=== PATIENT | male | born 1940 | race Caucasian/White ===

== ENCOUNTER 2025-06-09 07:12 | Outpatient (CLI) | payer MEDICARE, SELFPAY ==
--- NOTE | ~2025-06-09 | PE_ITS ---
EXAMINATION: PET_PETPSMAST_PT DATE: 06/09/2025 11:17 INDICATION: Prostate cancer TECHNIQUE: 5.354 mCi of Illucix Ga-68([id number]) was administered i.v. Low dose computed karen graphy (CT) images were acquired from the base of the brain to the base of the brain to the proximal thighs for attenuation correction and anatomic localization. Positron emission tomography (PET) image s were acquired in the same distribution beginning 89 minutes after injection. Images including fused PET/CT images were reconstructed in axial, coronal, and sagittal planes. Automated exposure control technique was employed. The dose-length product was 793.38mGy-cm. COMPARISON: None FINDINGS: Head/neck: Typical pattern of symmetric physiologic increased activity in the lacrimal, parotid and submandibula r glands as well as along the mucosa of the nasal and oral cavities, pharynx and hypopharynx. No path ologically enlarged cervical lymphadenopathy or suspicious foci of increased uptake in the visualized head or neck. Chest: Mild to moderate emphysema. There is dependent atelectasis in bilateral upper and lower lobes. No faraz picious pulmonary nodules or pleural effusion. Heart size is normal. Atherosclerotic coronary artery calcific lesion. No pericardial effusion. Thoracic aorta is normal in caliber. No pathologically enla rged or PSMA avid thoracic lymphadenopathy. Abdomen/pelvis/proximal thighs: Physiologic renal accumulation and excretion of activity in the kidneys, bladder and along portions o f ureters. Photopenic defect associated with a couple left renal cysts the largest measuring 7.2 cm. There are 2 nonobstructing right renal stones measuring up to 4-5 mm. Vogel catheter in the bladder. Prostatomegaly measuring 5.7 x 5.7 cm which impresses upon the base of the bladder. There is a small focus of increased uptake in the midline of the posterior prostate with maximal SUV of 4.2. Normal de gree and slightly heterogenous pattern of increased uptake throughout the liver and spleen without ra diologic correlate or dominant PSMA avid lesion. Additional photopenic defect associated with the lar maliha of a couple low-attenuation hepatic cysts which measure up to 1.9 cm. Multiple calcified gallston es in the incompletely distended gallbladder. Multiple splenic calcific location consistent with old granulomatous disease. Pancreas and bilateral adrenal glands are normal. Moderate uptake scattered th roughout the bowels with typical duodenal and proximal jejunal predominance and without radiologic co rrelate, also likely physiologic. No other abnormal foci of increased uptake or pathologically enlarg ed lymphadenopathy in the abdomen, pelvis or proximal thighs. Musculoskeletal: Multi component mild curvature of the thoracic and lumbar spine with severe lumbar and lower cervical spondylosis and mild to moderate thoracic spondylosis. No suspicious lytic, blastic or abnormally PS MA avid bone lesions. IMPRESSION: 1. Small focus of mild uptake at the posterior midline of the enlarged prostate consistent with prima ry prostate cancer. No evident metastatic disease. 2. Cholelithiasis. 3. Nonobstructing right nephrolithiasis. Reviewed, dictated and finalized at location A. IMPRESSION: 1. Small focus of mild uptake at the posterior midline of the enlarged prostate consistent with primary prostate cancer. No evident metastatic disease. 2. Cholelithiasis. 3. Nonobstructing right nephrolithiasis.
--- OUTSIDE RECORDS SUMMARY | 2025-06-09 07:15 | XMS_ITS | Continuity of Care Document ---
Author Organization [facility] Address [address] [place] [address] [place] [address] Phone Care Team Providers Care Car Cooper Name Role Phone Efrain Echevarria MD Unavailable Unavailable Procedures Procedure Date Office/outpatient Visit, [facility] Advance Directives Directive Yes / No Effective Date File Name No Information Encounters Encounter Description Practice Location Reason(s) For Visit Diagnoses Date Provider Providers Copied on Encounter Office/outpat ient Visit, [facility], [address] [place], [place], [id number], [place] tel:[phone] [address] [place] Professional No Information [address] Zuniga. [address], [place], [id number], . tel:[phone] Referring Provider: Efrain Dean [address] [place], [address] . tel:[phone] Family History Family Member Type Diagnosis Age At Onset No Information Payers Payer name Insurance type Covered alliance party ID Authoriza tion(s) [place] [id number] [place] [facility] [id number] Social History Type Description Quantity Date Captured Comments Sex Male Smoking Status No Information Chief Complaint And Reason For Visit No Information Reason For Referral Reason For Referral No Information History Of Present Illness Encounter Date Complaint History Of Prese nt Illness No Information Functional Status Date Functional Assessmen t No Information Instructions Date Instruction Additional Infor mation No Information Assessments Type Assessment Date No Information Patient Care Teams Name Effective Dates (start - stop) Status Members No Information
--- OUTSIDE RECORDS SUMMARY | 2025-06-09 07:16 | XMS_ITS | Clinical Summary ---
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 Name Role Phone Britton Swanson MD Primary Care Provider [phone] Reggie Guzmán DO Unavailable [phone] Vladimir Murrell MD Unavailable [phone] Bee Archuleta RN Unavailable [phone] Allergies Active Allergy Reactions Criticality Noted Date Comments Ltfsdyg-Huc-Ipm Reductase Inhibitors Angioedema High Bruises all over body and becomes lethargic Medications multivitamin-mi nerals-lutein (CENTRUM SILVER) tablet take 1 tablet by oral route every day 0 3 Active aspirin 81 mg enteric coated tablet Take 1 tablet (81 mg total) by mouth daily 30 tablet 3 9 Active niacin 500 mg tablet TAKE 1 TABLET BY MOUTH IN THE EVENING AFTER AN 81 MG ASPIRIN AND A LIGHT SNACK 90 tablet 0 Active lisinopriL (PRINIVIL,ZESTR IL) 20 mg tablet Take 1 tablet (20 mg total) by mouth daily 90 tablet 3 5 Active metFORMIN XR (GLUCOPHAGE XR) 500 mg 24 hr tablet Take 2 tablets (1,000 mg total) by mouth daily with breakfast 180 tablet 3 5 Active ezetimibe (ZETIA) 10 mg tablet Take 1 tablet (10 mg total) by mouth daily 90 tablet 3 5 Active meclizine (ANTIVERT) 25 mg tablet Take 1 tablet (25 mg total) by mouth 3 (three) times a day as needed for dizziness Active ondansetron (ZOFRAN) 4 mg tablet Take 1 tablet (4 mg total) by mouth every 6 (six) hours as needed for nausea or vomiting Active tamsulosin (FLOMAX) 0.4 mg extended release capsule Take 1 capsule (0.4 mg total) by mouth daily 30 capsule 5 06/30/20 25 Active tamsulosin (FLOMAX) 0.4 mg extended release capsule Take 1 capsule (0.4 mg total) by mouth daily 30 capsule 5 05/31/20 25 Discontinu ed(Reorder ) nitrofurantoin monohydrate (MACROBID) 100 mg capsuleIndicati ons:Urinary Tract/Genitouri nary Infection Take 1 capsule (100 mg total) by mouth 2 (two) times a day for 7 days 14 capsule 5 05/11/20 25 Discontinu ed(Therapy completed) linezolid (ZYVOX) 600 mg tabletIndicatio ns:Urinary Tract/Genitouri nary Infection Take 1 tablet (600 mg total) by mouth 2 (two) times a day for 10 days 20 tablet 5 06/05/20 25 Active Problems Problem Noted Date Diagnosed Date Bilateral impacted cerumen 05/31/2025 Assessment & Plan (05/31/2025 10:27 AM CDT): Canals cleared. RTC for any recurrent concerns. Hospital discharge follow-up 05/31/2025 Assessment & Plan (05/31/2025 10:28 AM CDT): IElsy NP have personally reviewed pertinent inpatient and/or ED records, including discharge medications and Clindesk if applicable. This patient's discharge medication list has been reviewed and reconciled with his outpatient medication list and has also been reviewed with patient and/or caregiver. I have noted any changes. Cystitis 05/24/2025 Urinary tract infection asso ciated with indwelling urethral catheter, initial encounter 05/23/2025 Assessment & Plan (05/31/2025 10:28 AM CDT): Complete antibiotic course. Follow-up with urology as scheduled. Red flags reviewed. BEBE (acute kidney injury) 04/21/2025 Assessment & Plan (04/26/2025 10:16 AM CDT): Will repeat labs in 1 week to ensure continuing to improve and stay normal. Will continue to monitor. Orders: Comprehensive metabolic panel; Future Assessment & Plan (04/21/2025 1:35 PM CDT): Urinary Retention (Resolved) Prostate Cancer 84 y/o male w/ hx of prostate cancer who presented w/ suprapubic pain. Bladder scan in ED showed 1L of retained urine. Bladder decompressed after emery catheter was placed, which also resolved his suprapubic pain. He did have an BEBE with Cr increased to 1.53 with his baseline around 1.0. His Cr decreased quickly to 1.12 after the emery was placed. BEBE was post-renal. It is possible that his prostate cancer contributed to the retention. Urology was consulted in the ED. GIGI shows normal renal ultrasound. Left renal cyst containing thin internal septation. - Patient has clinically improved. Plan: - Urology consulted - Anticipating eventual voiding trial Urinary retention 04/21/2025 Assessment & Plan (05/11/2025 8:40 AM CDT): Emery in place, draining pale urine. No hematuria. He denies any lower abdominal pain or flank pain. No fevers, chills. States appetite has been decreased for the past several weeks. Completed Macrobid. No evidence of infection from UA completed in ED on 05/04 Assessment & Plan (04/26/2025 10:16 AM CDT): Emery in place will be removed next week. Will continue to monitor. Orders: Urinalysis reflex to microscopic and culture Urine, clean voided; Future Prostate cancer 04/21/2025 Assessment & Plan (05/31/2025 10:01 AM CDT): Currently monitoring with Urology. Will continue to follow. Assessment & Plan (05/11/2025 8:39 AM CDT): Scheduled follow-up with Urology 05/15. 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 Assessment & Plan (04/26/2025 10:16 AM CDT): Stable ans continues to follow with urology. Will continue to monitor. Possible UTI (urinary tract infection) Assessment & Plan (04/26/2025 10:16 AM CDT): Will complete Ceftin. Will repeat UA in 1 week. Will continue to monitor. Orders: Urinalysis reflex to microscopic and culture Urine, clean voided; Future CBC with auto differential; Future Assessment & Plan (04/21/2025 1:43 PM CDT): Possible Sepsis In the ED, UA was significant for 1+ leukocyte esterase, 11-20 WBC, and 21-50 RBC. Patient denied having dysuria. His urinary retention and suprapubic pain were resolved after a emery was placed. He was afebrile but did have tachycardia up to 112 bpm and leukocytosis of 14.1. However, following the emery placement, his WBC decreased to 8.4 the following day. Lactate was 1.3. Blood cultures and urine culture were collected. He did meet sepsis criteria with source of infection being UTI. UTI could have been precipitated by urinary retention or vice versa. He was started on empiric ceftriaxone. Plan: - Continue ceftriaxone Sepsis 04/21/2025 Fecal retention 04/21/2025 Assessment & Plan (04/26/2025 10:16 AM CDT): Resolved. No recent issue. Assessment & Plan (04/21/2025 1:44 PM CDT): Patient had fecal retention that began at the same time as his urinary retention. His continues to be constipated after placement of a emery catheter and resolution of urinary obstruction. Prostate cancer could also be a contributing factor. He last had a bowel movement about 2 days prior to admission when he typically has daily BMs. Plan: - Starting scheduled miralax - Lactulose 10g x1 Coronary artery disease of n ative heart with stable angina pectoris 02/26/2025 Assessment & Plan (04/21/2025 5:10 PM CDT): Chronic hx. S/p stents in 2019. Managed w/ ASA 81 mg - Continue home med Assessment & Plan (02/26/2025 11:22 AM CDT): Secondary rpevnetion. Antiplatelet agent and will folwlre spsne. Abdominal aortic aneurysm (AAA) without rupture 02/26/2025 Assessment & Plan (05/31/2025 10:29 AM CDT): Has enlarged since last checked in January. He is following with vascular specialist. Assessment & Plan (02/26/2025 11:22 AM CDT): Vasucalr surgery recommendations. Adverse reaction to statin medication 02/15/2025 Assessment & Plan (02/26/2025 11:22 AM CDT): Severe artharlgias and cognitive change with medicaiton. Controlled type 2 diabetes collette love without complication, without long-term current use of insulin 02/15/2025 Assessment & Plan (04/21/2025 5:12 PM CDT): Chronic hx. Last A1c on 08/17/24 was 5.5%. Well controlled on metformin 500 mg BID - Managed with SSI while inpatient Assessment & Plan (02/26/2025 11:22 AM CDT): Good glycemic control and continue son metformin XR and will trupti housereonse. Elevated PSA 09/14/2024 Assessment & Plan (02/26/2025 11:22 AM CDT): Cniotijnue f/u with urology. No hemturia. Continue surveillance. Balance problem 08/17/2024 Assessment & Plan (08/17/2024 9:31 AM CDT): Neurologically intact. Recommend PT eval and treatment. Monitor response. Safety reviewed. They are agreeable and states understanding. Type 2 diabetes mellitus with hyperlipidemia Assessment & Plan (02/26/2025 11:22 AM CDT): Zetia and no side effects to the medication. Assessment & Plan (08/17/2024 9:31 AM CDT): Compliant with ezetimibe. Will check lipid panel today and plan accordingly. He is not fasting. Encounter for Medicare annual wellness exam 07/25 Assessment & Plan (08/17/2024 9:31 AM CDT): Visit preventive in nature. We reviewed medications, chronic conditions, risk factors, lifestyle recommendations. Reviewed immunization recommendations. Follow-up in 6 months for chronic conditions and 1 year for annual wellness. Chronic bronchitis, unspecified chronic bronchit is type 03/27/2024 Bilateral carotid artery disease, unspecified ty pe 03/27/2024 Bilateral carotid artery stenosis 12/02/2019 Assessment & Plan (04/04/2021 9:25 AM CDT): Patient's carotid disease remains mild and asymptomatic. We will not relook at his carotids for another year or 2. Coronary artery disease invo lving wiyot coronary artery of wiyot heart without angina pectoris 11/24/2019 Assessment & Plan (04/04/2021 9:25 AM CDT): Patient remains free of any symptoms to suggest angina or heart failure. He will continue with aggressive secondary risk factor modification. 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 Discussed possible tenderness/redness at injection site. Need for vaccination 10/27/2019 Assessment & Plan (10/27/2019 5:07 PM BOAT RENTAL CLERK): Pneumovax 23 vaccine given today. Discussed possible tenderness/redness at injection site. BMI 23.0-23.9, adult 10/27/2019 Assessment & Plan (05/11/2025 8:41 AM CDT): Weight loss of 6 lbs in the past 2 months. Decreased appetite. Encouraged use of nail supplement/protein drinks. Stressed the need to push fluids. Assessment & Plan (04/26/2025 10:16 AM CDT): Weight appropriate for patient. Assessment & Plan (10/27/2019 5:04 PM BOAT RENTAL CLERK): Discussed healthy diet and importance of regular physical activity. BMI is acceptable for this patient. Nausea 10/27/2019 Assessment & Plan (10/27/2019 5:06 PM BOAT RENTAL CLERK): Poor intake. Discussed zofran and then 20-30 min later small intake. Discussed 5-6 smaller meals/grazing instead of 3 larger meals at least until appetite improved. Discussed bland diet (BRAT). Denies reflux, no epigastric pain. Denies dizzy/lightheaded. No SOB. Denies CP/arm/neck pain. Reviewed red flags. 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 Reviewed red flags; what would warrant call/rtc. Discussed new medications. Discussed fatigue r/t new beta ivon. Reviewed diet/activity. Presence of drug coated sten t in left circumflex coronary artery 10/18/2019 Overview (11/24/2019): 2.75 x 16 mm AKASH to distal Cx S/P PTCA (percutaneous transluminal coronary ang ioplasty) 10/18/2019 Overview (11/24/2019): angioplasty alone of the posterolateral branch ostium using 2.75 mm balloon Mixed hyperlipidemia 04/08/2014 Overview (02/27/2017): HYPERLIPIDEMIA NEC/NOS Assessment & Plan (04/21/2025 5:11 PM CDT): Chronic hx. Managed w/ zetia 10 mg daily - Continue home med Hypertension associated with diabetes 04/08/2014 Overview (02/27/2017): HYPERTENSION NOS Assessment & Plan (05/31/2025 10:27 AM CDT): Normotensive. Continue lisinopril. Assessment & Plan (04/21/2025 5:14 PM CDT): Chronic hx. Managed with lisinopril 20 mg. It was held due to BEBE, which is now resolving following catheterization. -Resume lisinopril as needed Assessment & Plan (02/26/2025 11:21 AM CDT): Continues on lisinopril and will follow response. No chest pains/pressure/apltaitons. Assessment & Plan (08/17/2024 9:30 AM CDT): Normotensive. Continue lisinopril. Will continue to monitor. Type 2 diabetes mellitus 04/08/2014 Overview (02/27/2017): DMII WO CMP NT ST UNCNTR Assessment & Plan (05/31/2025 10:27 AM CDT): Well controlled on metformin and will continue. Assessment & Plan (08/17/2024 9:31 AM CDT): A1c today. Encouraged to monitor blood glucose at home. Discussed risks of hypoglycemia. He and his are agreeable and states understanding. They believe they do have a glucometer home and will let us know if they do not. Red flags reviewed. Encounters Date Type Department Care Team Description 05/31/2025 9:30 AM CDT Office Visit [facility] [address] [phone] Elsy Miranda NP Hypertension associated with diabetes (HCC) (Primary Dx); Type 2 diabetes mellitus without complication, without long-term current use of insulin (HCC); Prostate cancer (HCC); Bilateral impacted cerumen; Hospital discharge follow-up; Urinary tract infection associated with indwelling urethral catheter, initial encounter; Abdominal aortic aneurysm (AAA) without rupture, unspecified part 05/25/2025 Telephone [facility] [address] [phone] Britton Swanson MD Medical Question/Miscellaneou s 05/23/2025 3:52 PM CDT - 05/26/2025 11:25 AM CDT Hospital Encounter [facility] [address] [place] [address] James Cooley MD Huynh, Kiet T., MD Kheirkhahan, Nazanin, MD Urinary tract infection associated with indwelling urethral catheter, initial encounter (Primary Dx); Cystitis; Abdominal aortic aneurysm (AAA) without rupture, unspecified part; Hypertension associated with diabetes (HCC); Balance problem Discharge Disposition: Discharge to home, home health skilled care 05/23/2025 Nurse Triage [facility] [address] [phone] Britton Swanson MD 05/23/2025 Telephone [facility] [address] [phone] Britton Swanson MD 05/11/2025 8:00 AM CDT Office Visit [facility] [address] [phone] Tete Parker NP Prostate cancer (HCC) (Primary Dx); Urinary retention; BMI 23.0-23.9, adult 05/05/2025 [facility] ED Outreach [facility] Organization [address] [place] [id number] Jeannette Dooley MA 05/04/2025 6:25 AM CDT - 05/04/2025 9:26 AM CDT Emergency [facility] Emergency Department [address] [place] [address] Yosvany Garcia MD Urinary retention (Primary Dx) Discharge Disposition: Discharge to home or self care 05/02/2025 Results Follow-Up [facility] [address] [phone] Zoie Jarquin NP CBC with auto differential, Urinalysis reflex to microscopic and culture Urine, clean voided, Comprehensive metabolic panel, Additional followed-up results: 4 05/01/2025 1:30 PM CDT Lab [facility] [address] [place] [phone] Acute cystitis with hematuria; Urinary retention; BEBE (acute kidney injury) 05/01/2025 1:15 PM CDT Lab [facility] [address] [place] [phone] Acute cystitis with hematuria; Type 2 diabetes mellitus without complication, without long-term current use of insulin (HCC); Hypertension associated with diabetes (HCC); Type 2 diabetes mellitus with hyperlipidemia (HCC); Encounter for Medicare annual wellness exam 04/27/2025 [facility] Post Discharge Follow up phone call [facility] [address] [place] [address] Christina Mccray 04/26/2025 10:00 AM CDT Office Visit [facility] [address] [phone] Zoie Jarquin NP Hospital discharge follow-up (Primary Dx); Left wrist pain; Prostate cancer (HCC); Urinary retention; BEBE (acute kidney injury); Constipation, unspecified constipation type; Acute cystitis with hematuria; BMI 23.0-23.9, adult 04/26/2025 Telephone [facility] [address] [phone] Britton Swanson MD Medical Question/Miscellaneou s 04/24/2025 Telephone [facility] [address] [phone] Britton Swanson MD [facility] Questions 04/21/2025 12:09 AM CDT - 04/22/2025 12:38 PM CDT Hospital Encounter [facility] [address] [place] [address] Henry Mason MD Petters, MD Angelica Jeffrey, Reggie Galvan Jr., MD BEBE (acute kidney injury) (Primary Dx); Urinary retention; Sepsis, due to unspecified organism, unspecified whether acute organ dysfunction present (HCC); Acute cystitis with hematuria [N30.01]; Mixed hyperlipidemia [E78.2]; Hypertension associated with diabetes (HCC) [E11.59, I15.2]; Constipation, unspecified constipation type [K59.00]; Controlled type 2 diabetes mellitus without complication, without long-term current use of insulin (HCC) [E11.9] Discharge Disposition: Discharge to home or self care from Last 3 Months Immunizations Immunization Administration Dates Next Due Influenza, Quadrivalent, Hig h Dose, Preservative Free, Intrr 08/17/2023,08/16/2020 Influenza, Split 04/04/2014,04/04/2014 Influenza, Trivalent, High D ose, Split, Preservative Free, Intramuscular 08/17/2024,08/16/2020,10/27/2019 Influenza, Unspecified 02/20/2023(Deferr ed: Patient Refused),02/11/2023(Deferred: Patient Refused),08/23/2022(Deferred: Patient Refused),08/23/2022(Deferred: Patient Refused),08/11/2022(Deferred: Patient Refused),07/24/2022(Deferred: Patient Refused),01/08/2022(Deferred: Patient Refused),07/24/2021(Deferred: Patient Refused),07/24/2021(Deferred: Patient Refused),12/12/2020(Deferred: Patient Refused),11/23/2019(Deferred: Patient Refused),08/03/2018(Deferred: Patient Refused),11/24/2016(Deferred: Patient Refused) Pneumococcal Conjugate Pcv20 08/17/2024 Pneumococcal Conjugate, Unspecified 05/24(Deferred: Patient Refused),11/23/2019(Deferred: Patient Refused) Pneumococcal Polysaccharide PPV23 10/27/2019 Surgical History Surgery Date Site/Laterality Comments ABDOMINAL SURGERY 08/23/2010 appendectomy CARDIAC STENT PLACEMENT 10/18/2019 1 EYE SURGERY Bilateral cataracts CARDIAC CATHETERIZATION ABSCESS DRAINAGE Rectal abscess repaired Medical History Medical History Date Comments Diabetes mellitus (HCC) diabetes mellitus Hypertension hypertension History of heart artery stent Pt had one stent placed on 10/18/19 AK (myocardial infarction) ([facility]) 10/16/2019 Asthma Chest pain Coronary artery disease Heart murmur Hyperlipidemia Shortness of breath Bilateral carotid artery stenosis 12/02/2019 Sick sinus syndrome (HCC) Vertigo Delayed emergence from gener al anesthesia Abdominal aortic aneurysm (A AA) without rupture 02/26/2025 Family History Medical History Relation Name Comments Aneurysm Brother Heart disease Brother Aneurysm Father Diabetes Mother Relation Name Status Comments Brother Father Mother Social History Tobacco Use Types Packs/Day Years Used Date Smoking Tobacco: Former Cigarettes 2 20 1 978 - 1997 Pipe Smokeless Tobacco: Never Tobacco Cessation:Counseling Given: Not Answered Comments:Smoking History Packs/day: 2 Packs Alcohol Use Standard Drinks/Week Comments No 0 (1 standard drink = 0.6 oz pur e alcohol) [facility] Utilities Answer Date Recorded In the past 12 months has [employer] electric, gas, oil, or water [employer] threatened to shut off services in your home? No 05/29/2025 Social Connection and Isolation Panel [NHANES] A nswer Date Recorded In a typical week, how many times do you talk on the phone with family, friends, or neighbors? Once a week 05/29/20 How often do you get togethe r with friends or relatives? Once a week 05/29/2025 How often do you attend chur ch or jainism services? 1 to 4 times per year 05/29/2025 Do you belong to any clubs o r organizations such as restorationist groups, unions, fraternal or athletic groups, or school groups? Yes 05/29/2025 How often do you attend meet ings of the clubs or organizations you belong to? 1 to 4 times per year 05/29/2025 Are you , , di vorced, , never , or living with a partner? 05/29/2025 AUDIT-C Answer Date Recorded Frequency of Alcohol Consumption Not on file 09/27/2024 Q2: How many drinks containi ng alcohol do you have on a typical day when you are drinking? Patient does not drink Frequency of Binge Drinking Not on file 03/2024 Overall Financial Resource Strain (CARDIA) Answe r Date Recorded How hard is it for you to pa y for the very basics like food, housing, medical care, and heating? Not very hard 05/29/2025 PHQ-2 Answer Date Recorded PHQ-2 Total Score (If total score is 3 or more points, staff should administer the PHQ-9) 0 05/31/2025 [facility] of Occupat ional Health - Occupational Stress Questionnaire Answer Date Recorded Feeling of Stress Only a little 10/25/2019 Exercise Vital Sign Answer Date Recorde d Days of Exercise per Week 0 days 2018 Minutes of Exercise per Session 0 min 10/25/2019 Hunger Vital Sign Answer Date Recorded Within the past 12 months, y ou worried that your food would run out before you got the money to buy more. Never true 05/29/20 25 Within the past 12 months, t he food you bought just didn't last and you didn't have money to get more. Never true 05/29/2025 PRAPARE - Transportation Answer Date Re corded In the past 12 months, has l ack of transportation kept you from medical appointments or from getting medications? No 05/2025 In the past 12 months, has l ack of transportation kept you from meetings, work, or from getting things needed for daily living? No 05/29/2025 Housing Stability Vital Sign Answer Pro e Recorded In the last 12 months, was t here a time when you were not able to pay the mortgage or rent on time? No 05/29/2025 In the past 12 months, how m any times have you moved where you were living? 0 05/29/2025 At any time in the past 12 m [facility], were you homeless or living in a snf (including now)? No 05/29/2025 Personal Safety Answer Date Recorded Have you ever been in or are you currently in a harmful physical or emotional relationship or is someone making you feel afraid or unsafe? 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 Gender Identity Not on file Sexual Orientation Not on file Occupation Industry Job Start Date Job End Date retired Not on file Not on file Not on file Obstetrics History Last Filed Vital Signs Vital Sign Reading Time Taken Comments Blood Pressure 110/72 05/31/2025 9:41 AM CDT Pulse 94 05/31/2025 9:41 AM CDT Temperature 36.5 C (97.7 F) 05/31/2025 9:41 AM CDT Respiratory Rate 16 05/31/2025 9:41 AM CDT Oxygen Saturation 95% 05/31/2025 9:41 AM CDT Inhaled Oxygen Concentration - - Weight 74.4 kg (164 lb) 05/31/2025 9:41 AM CDT Height 180.3 cm (5' 10.98) 05/31/2025 9:41 AM C DT Body Mass Index 22.88 05/31/2025 9:41 AM CDT Plan of Treatment Health Maintenance Due Date Last Done Comments DTaP/Tdap/Td Vaccine (1 - Tdap) 1951 Hepatitis B Screening 1958 Zoster Vaccine (1 of 2) 1990 Influenza Vaccine (#1) 2025 , 08/17/2023, 08/16/2020, Additional history exists Albumin Creatinine Ratio, Urine 08/17/2025 08/17/2024, 08/17/2023, 01/13/2022, Additional history exists Foot Exam 08/17/2025 08/17/2024, 07/25, 06/18/2021, Additional history exists Well Visit 65+ 08/17/2025 08/17/2024, 07/25, 08/11/2022, Additional history exists Dilated Eye Exam 09/07/2025 09/07/2024, 07/2024, 11/04/2022, Additional history exists Hemoglobin A1C 10/31/2025 05/01/2025, 07/25, 03/10/2024, Additional history exists Lipid Panel 05/01/2026 05/01/2025, 07/25, 03/10/2024, Additional history exists eGFR 05/26/2026 05/26/2025, 01/2025, 05/24/2025, Additional history exists Depression Screening 05/31/2026 05/31/2025, 05/11/2025, 04/26/2025, Additional history exists Fall Risk Assessment 05/31/2026 05/31/2025, 05/26/2025, 05/11/2025, Additional history exists Pneumococcal vaccine 65+ Completed 08/17/2024, 03/2019 Goals Goal Patient Goal Type Associated Problems Recent Progress Patient-Stated? Author [facility] General Goal - Patient schedules and keeps appointments with all recommended providers [facility] Care Management On track(2024 2:38 PM CDT) Bee Sweet, RN Note: Problem: Potential for medical complications and readmission if follow-up appointments are not scheduled Interventions: - Ensure all follow-up appointments are scheduled, all prescribed medications have been received. - Address any barriers for keeping scheduled appointment. - Coordinate with patient/caregiver(s) to ensure patient is able to keep scheduled appointment. - Emphasize importance of keeping scheduled appointments. - Identify and discuss questions for next provider visit. - Follow up with patient after scheduled appointment(s) to review any new orders or changes made to medication regimen. SURES[facility] General Goal - Patient / caregiver verbalizes lifestyle changes necessary to meet self-care needs and executes self-care activities to utmost capability ACO Care Management On track(2024 2:38 PM CDT) Bee Sweet, RN Note: Problem: At Risk for Self Care Deficit Interventions: - Assess patient's level of dependence on others along with current level of assistance being provided. - Use motivational interviewing to help guide the patient in accepting the needed amount of assisstance, as applicable. - Contact caregiver and assess their involvement with patient and level of assistance provided, as appropriate. - Assess appropriateness for Home Health. Start referral process if skilled need is present. - Encourage independent ADL's as appropriate. Ensure patient has the appropriate tools at home to be as independent as possible. - Provide fall prevention education to patient and caregiver. - Evaluate need for assistive devices. - Refer to SW if appropriate and patient is agreeable. Medical Devices Implanted Type Area Customer Advisor Device Identifier Shelf Expiration Date Model / Serial / Lot Brandcast [id number] Synergy 2.75mm 16mm 144cm Radiopaque 1 Access Port Inflation - [id number] Implanted:Qty: 1 on 10/18/2019 by Thiago Gutierrez MD at [facility] Jumia Miah 07/10/2021 [id number] / / [id number] [employer]ig [employer] [id number] Angio-Seal Evolution 6fr .035in Guidewire Bypass Tube Suture - [id number] Implanted:Qty: 1 on 10/18/2019 by Thiago Gutierrez MD at [facility] Daig [employer] 06/22/2020 [id number] / / [id number] Procedures Procedure Name Priority Date/Time Associated Diagnosis Comments [place] REMOVAL IMPACTED CERUMEN INSTRUMENTATION UNILAT Routine 05/31/2025 9:30 AM CDT Bilateral impacted cerumen EGFR Routine 05/26/2025 7:06 AM CDT DIFFERENTIAL AUTO Routine 05/26/2025 7:0 6 AM CDT CBC WITH AUTO DIFFERENTIAL Routine 05/26/2025 7:06 AM CDT COMPREHENSIVE METABOLIC PANEL Routine 05/26/2025 7:06 AM CDT EGFR Routine 05/25/2025 3:42 AM CDT DIFFERENTIAL AUTO Routine 05/25/2025 3:4 2 AM CDT CBC WITH AUTO DIFFERENTIAL Routine 05/25/2025 3:42 AM CDT COMPREHENSIVE METABOLIC PANEL Routine 05/25/2025 3:42 AM CDT INFECTION PREVENTION AMBIKA AURIS PCR, SURVEILLANCE Routine 05/24/2025 12:10 PM CDT EGFR Routine 05/24/2025 4:20 AM CDT DIFFERENTIAL AUTO Routine 05/24/2025 4:2 0 AM CDT CBC WITH AUTO DIFFERENTIAL Routine 05/24/2025 4:20 AM CDT COMPREHENSIVE METABOLIC PANEL Routine 05/24/2025 4:20 AM CDT SEPSIS LACTATE WITH REFLEX STAT 05/23/2025 6:59 PM CDT BLOOD CULTURE Routine 05/23/2025 6:59 PM CDT BLOOD CULTURE Routine 05/23/2025 6:59 PM CDT URINALYSIS, MICROSCOPIC ONLY STAT 05/23/2025 5:11 PM CDT URINE CULTURE STAT 05/23/2025 5:11 PM CDT URINALYSIS AND REFLEX TO MICROSCOPIC AND CULTURE STAT 05/23/2025 5:[address] ABDOMEN PELVIS W CONTRAST ED 05/23/2025 5:06 PM CDT EGFR STAT 05/23/2025 1:21 PM CDT DIFFERENTIAL AUTO STAT 05/23/2025 1:2 1 PM CDT LIPASE STAT 05/23/2025 1:21 PM CDT COMPREHENSIVE METABOLIC PANEL STAT 05/23/2025 1:21 PM CDT CBC WITH AUTO DIFFERENTIAL STAT 05/23/2025 1:21 PM CDT URINALYSIS, MICROSCOPIC ONLY STAT 05/04/2025 7:35 AM CDT URINALYSIS AND REFLEX TO MICROSCOPIC AND CULTURE STAT 05/04/2025 7:35 AM CDT EGFR STAT 05/04/2025 5:10 AM CDT DIFFERENTIAL AUTO STAT 05/04/2025 5:1 0 AM CDT LIPASE STAT 05/04/2025 5:10 AM CDT COMPREHENSIVE METABOLIC PANEL STAT 05/04/2025 5:10 AM CDT CBC WITH AUTO DIFFERENTIAL STAT 05/04/2025 5:10 AM CDT EGFR Routine 05/01/2025 1:18 PM CDT BEBE (acute kidney injury) URINALYSIS, MICROSCOPIC ONLY Routine 05/01/2025 1:18 PM CDT Urinary retention Acute cystitis with hematuria DIFFERENTIAL AUTO Routine 05/01/2025 1:1 8 PM CDT Acute cystitis with hematuria COMPREHENSIVE METABOLIC PANEL Routine 05/01/2025 1:18 PM CDT BEBE (acute kidney injury) CBC WITH AUTO DIFFERENTIAL Routine 05/01/2025 1:18 PM CDT Acute cystitis with hematuria URINE CULTURE Routine 05/01/2025 1:18 PM CDT URINALYSIS AND REFLEX TO MICROSCOPIC AND CULTURE Routine 05/01/2025 1:18 PM CDT Urinary retention Acute cystitis with hematuria HEMOGLOBIN A1C Routine 05/01/2025 1:16 PM CDT Type 2 diabetes mellitus without complication, without long-term current use of insulin (HCC) Hypertension associated with diabetes (HCC) Type 2 diabetes mellitus with hyperlipidemia (HCC) Encounter for Medicare annual wellness exam LIPID PANEL Routine 05/01/2025 1:16 PM CDT Type 2 diabetes mellitus without complication, without long-term current use of insulin (HCC) Hypertension associated with diabetes (HCC) Type 2 diabetes mellitus with hyperlipidemia (HCC) Encounter for Medicare annual wellness exam POCT GLUCOSE DEVICE Routine 04/22/2025 1 2:00 PM CDT POCT GLUCOSE DEVICE Routine 04/22/2025 7 :47 AM CDT EGFR Routine 04/22/2025 2:12 AM CDT DIFFERENTIAL AUTO Routine 04/22/2025 2:1 2 AM CDT CBC WITH AUTO DIFFERENTIAL Routine 04/22/2025 2:12 AM CDT MAGNESIUM Routine 04/22/2025 2:12 AM CDT COMPREHENSIVE METABOLIC PANEL Routine 04/22/2025 2:12 AM CDT POCT GLUCOSE DEVICE Routine 04/22/2025 1 :39 AM CDT POCT GLUCOSE DEVICE Routine 04/21/2025 8 :26 PM CDT POCT GLUCOSE DEVICE Routine 04/21/2025 4 :59 PM CDT POCT GLUCOSE DEVICE Routine 04/21/2025 1 2:00 PM CDT US KIDNEY COMPLETE ED 04/21/2025 10 :11 AM CDT POCT GLUCOSE DEVICE Routine 04/21/2025 7 :56 AM CDT EGFR Routine 04/21/2025 5:42 AM CDT DIFFERENTIAL AUTO Routine 04/21/2025 5:4 2 AM CDT CBC WITH AUTO DIFFERENTIAL Routine 04/21/2025 5:42 AM CDT MAGNESIUM Routine 04/21/2025 5:42 AM CDT COMPREHENSIVE METABOLIC PANEL Routine 04/21/2025 5:42 AM CDT SEPSIS LACTATE WITH REFLEX STAT 04/21/2025 1:48 AM CDT BLOOD CULTURE Routine 04/21/2025 1:48 AM CDT BLOOD CULTURE Routine 04/21/2025 1:48 AM CDT URINALYSIS, MICROSCOPIC ONLY STAT 04/21/2025 12:00 AM CDT URINE CULTURE STAT 04/21/2025 12:00 AM CDT URINALYSIS AND REFLEX TO MICROSCOPIC AND CULTURE STAT 04/21/2025 12:00 AM CDT EGFR STAT 04/20/2025 11:41 PM CDT DIFFERENTIAL AUTO STAT 04/20/2025 11: 41 PM CDT LIPASE STAT 04/20/2025 11:41 PM CDT COMPREHENSIVE METABOLIC PANEL STAT 04/20/2025 11:41 PM CDT CBC WITH AUTO DIFFERENTIAL STAT 04/20/2025 11:41 PM CDT DIABETIC EYE EXAM Routine 09/07/2024 7:3 8 AM CDT ALBUMIN CREATININE RATIO, URINE Routine 08/17/2024 10:01 AM CDT Type 2 diabetes mellitus without complication, without long-term current use of insulin (HCC) Hypertension associated with diabetes (HCC) from Last 3 Months or Most Recently Relevant to Health Maintenance Results * [place] REMOVAL IMPACTED CERUMEN INSTRUMENTATION UNILAT (05/31/2025 9:30 AM CDT) Narrative Elsy Miranda, RAND - 05/31/2025 9:30 AM CDT Elsy Miranda NP 05/31/2025 10:29 AM Ear Cerumen Removal Performed by: Elsy Miranda NP Authorized by: Elsy Miranda NP Consent Given by: Patient Verbal consent obtained: Yes Risks, alternatives, and patient questions discussed: Yes Location: Bilateral L ear cerumen impacted?: Yes L ear method of removal: Instrumentation and irrigation L ear instrumentation: Curette L ear magnification: Otoscope R ear cerumen impacted?: Yes R ear method of removal: Instrumentation and irrigation R ear instrumentation: Curette R ear magnification: Otoscope Inspection: TM intact Patient tolerance: Patient tolerated the procedure well with no immediate complications us Elsy Miranda ELECTRICAL MAINTENANCE MAN IN CLINIC/BEDSIDE ORDERABL ES Final Result * eGFR (05/26/2025 7:06 AM CDT) eGFR 77 >=60 mL/min/1. 73 m2 Comment: Interpretive Data Reference Interval Normal >/= 90 mL/min/1.73m2 Mildly decreased* 60 - 89 mL/min/1.73m2 Mildly to moderately decreased 45 - 59 mL/min/1.73m2 Moderately to severely decreased 30 - 44 mL/min/1.73m2 Severely decreased 15 - 29 mL/min/1.73m2 Kidney Failure < 15 mL/min/1.73m2 *Relative to young adult level Estimated glomerular filtration rate is determined by the 2020 CKD-EPI equation recommended by the National Kidney Foundation (A Unifying Approach to GFR Estimation: Recommendations of the NKF-ASK Task Force on Reassessing the Inclusion of Race in Diagnosing Kidney Disease, JASN 202). The CKD-EPI equation should not be used for patients with unstable renal function and has not been validated in children and those over 70. Current interpretive data was last reviewed 2021. Blood 05/26/2025 7:06 AM CDT 05/26/2025 7:42 AM CDT us Chilango Costello MD LAB BLOOD ORDERABLES Final Resu lt [facility] [place] [facility] Department [place] [address] * Differential, auto (05/26/2025 7:06 AM CDT) Neutrophil abs 4.85 1.50 - 6.50 K/cumm Imm gran abs 0.03 0.00 - 0.10 K/cumm [facility] ([facility]) Lymphocyte abs 1.36 0.80 - 3.30 K/cumm [facility] ([facility]) Monocyte abs 0.78 0.20 - 0.80 K/cumm [facility] ([place]) Eosinophil abs 0.47 0.00 - 0.50 K/cumm [facility] ([place]) Basophil abs 0.07 0.00 - 0.10 K/cumm [facility] ([place]) Neutrophil pct 64.2 % [facility] ([place]) Comment: Interpretive Data Percent cell count reference ranges are not reported, since discordance with absolute values may lead to misinterpretation of CBC data. Current Interpretive Data was last revised on 2018. Imm gran pct 0.4 % [facility] ([place]) Comment: Interpretive Data Percent cell count reference ranges are not reported, since discordance with absolute values may lead to misinterpretation of CBC data. Current Interpretive Data was last revised on 2018. Lymphocyte pct 18.0 % [facility] ([place]) Comment: Interpretive Data Percent cell count reference ranges are not reported, since discordance with absolute values may lead to misinterpretation of CBC data. Current Interpretive Data was last revised on 2018. Monocyte pct 10.3 % [facility] ([facility]) Comment: Interpretive Data Percent cell count reference ranges are not reported, since discordance with absolute values may lead to misinterpretation of CBC data. Current Interpretive Data was last revised on 2018. Eosinophil pct 6.2 % [facility] ([facility]) Comment: Interpretive Data Percent cell count reference ranges are not reported, since discordance with absolute values may lead to misinterpretation of CBC data. Current Interpretive Data was last revised on 2018. Basophil pct 0.9 % [facility] ([place]) Comment: Interpretive Data Percent cell count reference ranges are not reported, since discordance with absolute values may lead to misinterpretation of CBC data. Current Interpretive Data was last revised on 2018. Blood 05/26/2025 7:06 AM CDT 05/26/2025 7:42 AM CDT Chilango Costello MD LAB BLOOD ORDERABLES Final Resu lt [facility] ([place]) 1 [facility] [place] [address] * (ABNORMAL) CBC with auto differential (05/26/2025 7:06 AM CDT) WBC 7.56 3.80 - 9.90 K/cumm Hgb 11.6(L) 13.0 - 17.5 g/dL [facility] ([place]) Hct 34.1(L) 38.9 - 50.3 % [facility] ([place]) Plt 277 150 - 400 K/cumm [facility] ([place]) MPV 8.7(L) 9.1 - 12.3 fL [facility] ([place]) RBC 3.64(L) 4.30 - 5.80 M/cumm [facility] ([place]) MCV 93.7 81.3 - 96.4 fL [facility] ([place]) MCH 31.9 27.1 - 33.3 pg [facility] ([place]) MCHC 34.0 32.3 - 35.7 g/dL [facility] ([place]) RDW CV 12.1 11.1 - 14.9 % [facility] ([place]) RDW SD 42.0 35.7 - 48.1 fL [facility] ([place]) NRBC abs 0.00 0.00 - 0.01 K/cumm [facility] ([facility]) Blood 05/26/2025 7:06 AM CDT 05/26/2025 7:42 AM CDT Chilango Costello MD LAB BLOOD ORDERABLES Final Resu lt [facility] ([place]) 1 [facility] [place] [address] * (ABNORMAL) Comprehensive metabolic panel (05/26/2025 7:06 AM CDT) Sodium 139 135 - 145 mmol/L Potassium, pl 3.8 3.3 - 4.9 mmol/L [facility] ([facility]) Chloride 106 97 - 110 mmol/L [facility] ([place]) CO2 22 22 - 32 mmol/L [facility] ([facility]) Anion gap 11 2 - 15 mmol/L [facility] ([place]) BUN 8 6 - 25 mg/dL [facility] ([place]) Creatinine 0.97 0.80 - 1.30 mg/dL [facility] ([facility]) Glucose 86 70 - 199 mg/dL [facility] ([facility]) Comment: Interpretive Data Fasting glucose >/= 126 mg/dl is diagnostic for diabetes. Fasting is defined as no caloric intake for at least 8 hours. Fasting glucose between 100 mg/dl to 125 mg/dl is diagnostic of prediabetes. In a patient with classic symptoms of hyperglycemia or hyperglycemic crisis, a random glucose >/= 200 mg/dl is diagnostic for diabetes. In the absence of unequivocal hyperglycemia, results should be confirmed by repeat testing. The classification and Diagnosis of Diabetes Diabetes Care 202; 46: S19-S40. Current interpretive data was last revised 2022. Calcium 8.3(L) 8.5 - 10.3 mg/dL [facility] ([facility]) Bilirubin, total 0.3 0.1 - 1.2 mg/dL [facility] ([place]) Protein, pl 6.0(L) 6.5 - 8.5 g/dL [facility] ([place]) Albumin 3.2(L) 3.5 - 5.0 g/dL [facility] ([place]) Alk phos 88 40 - 130 Units/L [facility] ([place]) ALT 46 7 - 55 Units/L [facility] ([facility]) AST 34 10 - 50 Units/L [facility] ([facility]) Blood 05/26/2025 7:06 AM CDT 05/26/2025 7:42 AM CDT us Chilango Costello MD LAB BLOOD ORDERABLES Final Resu lt [facility] ([place]) 1 [facility] Department [place] [address] * eGFR (05/25/2025 3:42 AM CDT) eGFR 67 >=60 mL/min/1. 73 m2 Comment: Interpretive Data Reference Interval Normal >/= 90 mL/min/1.73m2 Mildly decreased* 60 - 89 mL/min/1.73m2 Mildly to moderately decreased 45 - 59 mL/min/1.73m2 Moderately to severely decreased 30 - 44 mL/min/1.73m2 Severely decreased 15 - 29 mL/min/1.73m2 Kidney Failure < 15 mL/min/1.73m2 *Relative to young adult level Estimated glomerular filtration rate is determined by the 2020 CKD-EPI equation recommended by the National Kidney Foundation (A Unifying Approach to GFR Estimation: Recommendations of the NKF-ASK Task Force on Reassessing the Inclusion of Race in Diagnosing Kidney Disease, JASN 2020). The CKD-EPI equation should not be used for patients with unstable renal function and has not been validated in children and those over 70. Current interpretive data was last reviewed 2021. Blood 05/25/2025 3:42 AM CDT 05/25/2025 4:13 AM CDT us Chilango Costello MD LAB BLOOD ORDERABLES Final Resu lt [facility] ([place]) 1 [facility] Department [place] [address] * (ABNORMAL) Differential, auto (05/25/2025 3:42 AM CDT) Neutrophil abs 7.36(H) 1.50 - 6.50 K/cumm Imm gran abs 0.05 0.00 - 0.10 K/cumm [facility] ([place]) Lymphocyte abs 1.24 0.80 - 3.30 K/cumm [facility] ([place]) Monocyte abs 0.95(H) 0.20 - 0.80 K/cumm [facility] ([place]) Eosinophil abs 0.32 0.00 - 0.50 K/cumm [facility] ([place]) Basophil abs 0.05 0.00 - 0.10 K/cumm [facility] ([place]) Neutrophil pct 73.9 % [facility] ([facility]) Comment: Interpretive Data Percent cell count reference ranges are not reported, since discordance with absolute values may lead to misinterpretation of CBC data. Current Interpretive Data was last revised on 2018. Imm gran pct 0.5 % [facility] ([facility]) Comment: Interpretive Data Percent cell count reference ranges are not reported, since discordance with absolute values may lead to misinterpretation of CBC data. Current Interpretive Data was last revised on 2018. Lymphocyte pct 12.4 % [facility] ([facility]) Comment: Interpretive Data Percent cell count reference ranges are not reported, since discordance with absolute values may lead to misinterpretation of CBC data. Current Interpretive Data was last revised on 2018. Monocyte pct 9.5 % [facility] ([facility]) Comment: Interpretive Data Percent cell count reference ranges are not reported, since discordance with absolute values may lead to misinterpretation of CBC data. Current Interpretive Data was last revised on 2018. Eosinophil pct 3.2 % [facility] ([facility]) Comment: Interpretive Data Percent cell count reference ranges are not reported, since discordance with absolute values may lead to misinterpretation of CBC data. Current Interpretive Data was last revised on 2018. Basophil pct 0.5 % [facility] ([place]) Comment: Interpretive Data Percent cell count reference ranges are not reported, since discordance with absolute values may lead to misinterpretation of CBC data. Current Interpretive Data was last revised on 2018. Blood 05/25/2025 3:42 AM CDT 05/25/2025 4:13 AM CDT us Chilango Costello MD LAB BLOOD ORDERABLES Final Resu lt [facility] ([place]) 1 [facility] Department [place] [address] * (ABNORMAL) CBC with auto differential (05/25/2025 3:42 AM CDT) WBC 9.97(H) 3.80 - 9.90 K/cumm Hgb 11.5(L) 13.0 - 17.5 g/dL [facility] ([place]) Hct 33.5(L) 38.9 - 50.3 % [facility] ([place]) Plt 254 150 - 400 K/cumm [facility] ([place]) MPV 8.8(L) 9.1 - 12.3 fL [facility] ([facility]) RBC 3.55(L) 4.30 - 5.80 M/cumm [facility] ([place]) MCV 94.4 81.3 - 96.4 fL [facility] ([place]) MCH 32.4 27.1 - 33.3 pg [facility] ([place]) MCHC 34.3 32.3 - 35.7 g/dL [facility] ([place]) RDW CV 12.2 11.1 - 14.9 % [facility]) RDW SD 43.0 35.7 - 48.1 fL [facility] ([place]) NRBC abs 0.00 0.00 - 0.01 K/cumm [facility] ([facility]) Blood 05/25/2025 3:42 AM CDT 05/25/2025 4:13 AM CDT us Chilango Costello MD LAB BLOOD ORDERABLES Final Resu lt [facility] Department [place] [address] * (ABNORMAL) Comprehensive metabolic panel (05/25/2025 3:42 AM CDT) Sodium 140 135 - 145 mmol/L Potassium, pl 4.4 3.3 - 4.9 mmol/L [facility] ([place]) Chloride 105 97 - 110 mmol/L [facility] ([place]) CO2 22 22 - 32 mmol/L [facility] ([place]) Anion gap 12 2 - 15 mmol/L [facility] ([place]) BUN 14 6 - 25 mg/dL [facility] ([place]) Creatinine 1.09 0.80 - 1.30 mg/dL [facility] ([place]) Glucose 107 70 - 199 mg/dL [facility] ([facility]) Comment: Interpretive Data Fasting glucose >/= 126 mg/dl is diagnostic for diabetes. Fasting is defined as no caloric intake for at least 8 hours. Fasting glucose between 100 mg/dl to 125 mg/dl is diagnostic of prediabetes. In a patient with classic symptoms of hyperglycemia or hyperglycemic crisis, a random glucose >/= 200 mg/dl is diagnostic for diabetes. In the absence of unequivocal hyperglycemia, results should be confirmed by repeat testing. The classification and Diagnosis of Diabetes Diabetes Care 2021; 46: S19-S40. Current interpretive data was last revised 2022. Calcium 8.3(L) 8.5 - 10.3 mg/dL [facility] ([facility]) Bilirubin, total 0.5 0.1 - 1.2 mg/dL [facility] ([place]) Protein, pl 6.1(L) 6.5 - 8.5 g/dL [facility] ([place]) Albumin 3.2(L) 3.5 - 5.0 g/dL [facility] ([place]) Alk phos 84 40 - 130 Units/L [facility] ([place]) ALT 27 7 - 55 Units/L [facility] ([place]) AST 22 10 - 50 Units/L [facility] ([facility]) Blood 05/25/2025 3:42 AM CDT 05/25/2025 4:13 AM CDT Chilango Costello MD LAB BLOOD ORDERABLES Final Resu lt [facility] ([place]) 1 [facility] Department [place] [address] * Infection Prevention Ambika auris PCR, surveillance Axilla/Groin (05/24/2025 12:10 PM CDT) Ambika auris DNA Not Detected Not Detected [facility] Comment: Interpretive Data Testing performed by [facility] using the Joanna debra [id number] Ambika auris assay. This assay detects DNA from Ambika auris using Real-Time PCR. This assay is laboratory developed and is not cleared by the [place] Food and Drug Administration. The performance characteristics have been verified by the [facility]. Testing performed by: [facility], [address] [place] [address] Axilla/Groin 05/24/2025 12:1 0 PM CDT 05/24/2025 3:34 PM CDT us Cuauhtemoc Freed MD LAB MICROBIOLOGY - G ENERAL ORDERABLES Final Result [facility] ([place]) 1 [facility] Department [place] [address] [facility] * eGFR (05/24/2025 4:20 AM CDT) eGFR 79 >=60 mL/min/1. 73 m2 Comment: Interpretive Data Reference Interval Normal >/= 90 mL/min/1.73m2 Mildly decreased* 60 - 89 mL/min/1.73m2 Mildly to moderately decreased 45 - 59 mL/min/1.73m2 Moderately to severely decreased 30 - 44 mL/min/1.73m2 Severely decreased 15 - 29 mL/min/1.73m2 Kidney Failure < 15 mL/min/1.73m2 *Relative to young adult level Estimated glomerular filtration rate is determined by the 2020 CKD-EPI equation recommended by the National Kidney Foundation (A Unifying Approach to GFR Estimation: Recommendations of the NKF-ASK Task Force on Reassessing the Inclusion of Race in Diagnosing Kidney Disease, JASN 2020). The CKD-EPI equation should not be used for patients with unstable renal function and has not been validated in children and those over 70. Current interpretive data was last reviewed 2021. Blood 05/24/2025 4:20 AM CDT 05/24/2025 4:50 AM CDT us Chilango Costello MD LAB BLOOD ORDERABLES Final Resu lt [facility] ([place] Department [place] [address] * (ABNORMAL) Differential, auto (05/24/2025 4:20 AM CDT) Neutrophil abs 10.06(H) 1.50 - 6.50 K/cumm Imm gran abs 0.07 0.00 - 0.10 K/cumm [facility] ([place]) Lymphocyte abs 0.99 0.80 - 3.30 K/cumm [facility] ([place]) Monocyte abs 1.20(H) 0.20 - 0.80 K/cumm [facility] ([place]) Eosinophil abs 0.11 0.00 - 0.50 K/cumm [facility] ([place]) Basophil abs 0.05 0.00 - 0.10 K/cumm [facility] ([place]) Neutrophil pct 80.6 % [facility] ([place]) Comment: Interpretive Data Percent cell count reference ranges are not reported, since discordance with absolute values may lead to misinterpretation of CBC data. Current Interpretive Data was last revised on 2018. Imm gran pct 0.6 % [facility] ([place]) Comment: Interpretive Data Percent cell count reference ranges are not reported, since discordance with absolute values may lead to misinterpretation of CBC data. Current Interpretive Data was last revised on 2018. Lymphocyte pct 7.9 % [facility] ([place]) Comment: Interpretive Data Percent cell count reference ranges are not reported, since discordance with absolute values may lead to misinterpretation of CBC data. Current Interpretive Data was last revised on 2018. Monocyte pct 9.6 % [facility] ([place]) Comment: Interpretive Data Percent cell count reference ranges are not reported, since discordance with absolute values may lead to misinterpretation of CBC data. Current Interpretive Data was last revised on 2018. Eosinophil pct 0.9 % [facility] ([place]) Comment: Interpretive Data Percent cell count reference ranges are not reported, since discordance with absolute values may lead to misinterpretation of CBC data. Current Interpretive Data was last revised on 2018. Basophil pct 0.4 % [facility] ([place]) Comment: Interpretive Data Percent cell count reference ranges are not reported, since discordance with absolute values may lead to misinterpretation of CBC data. Current Interpretive Data was last revised on 2018. Blood 05/24/2025 4:20 AM CDT 05/24/2025 4:50 AM CDT Chilango Costello MD LAB BLOOD ORDERABLES Final Resu lt Performing Organization Address City/State/[facility] Co de Phone Number [facility] ([place]) 1 [facility] Department [place] [address] * (ABNORMAL) CBC with auto differential (05/24/2025 4:20 AM CDT) WBC 12.48(H) 3.80 - 9.90 K/cumm Hgb 11.8(L) 13.0 - 17.5 g/dL [facility] ([place]) Hct 33.7(L) 38.9 - 50.3 % [facility] ([place]) Plt 236 150 - 400 K/cumm [facility] ([place]) MPV 8.8(L) 9.1 - 12.3 fL [facility] ([place]) RBC 3.64(L) 4.30 - 5.80 M/cumm [facility] ([place]) MCV 92.6 81.3 - 96.4 fL [facility] ([place]) MCH 32.4 27.1 - 33.3 pg [facility] ([place]) MCHC 35.0 32.3 - 35.7 g/dL [facility] ([place]) RDW CV 12.0 11.1 - 14.9 % [facility] ([place]) RDW SD 41.0 35.7 - 48.1 fL [facility] ([place]) NRBC abs 0.00 0.00 - 0.01 K/cumm [facility] ([place]) Blood 05/24/2025 4:20 AM CDT 05/24/2025 4:50 AM CDT Chilango Costello MD LAB BLOOD ORDERABLES Final Resu lt [facility] ([place]) 1 [facility] Department [place] [address] * (ABNORMAL) Comprehensive metabolic panel (05/24/2025 4:20 AM CDT) Sodium 138 135 - 145 mmol/L Potassium, pl 3.9 3.3 - 4.9 mmol/L [facility] ([place]) Chloride 103 97 - 110 mmol/L [facility] ([place]) CO2 19(L) 22 - 32 mmol/L [facility] ([place]) Anion gap 16(H) 2 - 15 mmol/L [facility] ([place]) BUN 15 6 - 25 mg/dL [facility] ([facility]) Creatinine 0.95 0.80 - 1.30 mg/dL [facility] ([facility]) Glucose 120 70 - 199 mg/dL [facility] ([facility]) Comment: Interpretive Data Fasting glucose >/= 126 mg/dl is diagnostic for diabetes. Fasting is defined as no caloric intake for at least 8 hours. Fasting glucose between 100 mg/dl to 125 mg/dl is diagnostic of prediabetes. In a patient with classic symptoms of hyperglycemia or hyperglycemic crisis, a random glucose >/= 200 mg/dl is diagnostic for diabetes. In the absence of unequivocal hyperglycemia, results should be confirmed by repeat testing. The classification and Diagnosis of Diabetes Diabetes Care 2021; 46: S19-S40. Current interpretive data was last revised 2022. Calcium 8.2(L) 8.5 - 10.3 mg/dL [facility] ([facility]) Bilirubin, total 0.8 0.1 - 1.2 mg/dL [facility] ([place]) Protein, pl 6.2(L) 6.5 - 8.5 g/dL [facility] ([place]) Albumin 3.3(L) 3.5 - 5.0 g/dL [facility] ([place]) Alk phos 92 40 - 130 Units/L [facility] ([place]) ALT 26 7 - 55 Units/L [facility] ([place]) AST 22 10 - 50 Units/L [facility] ([facility]) Blood 05/24/2025 4:20 AM CDT 05/24/2025 4:50 AM CDT us Chilango Costello MD LAB BLOOD ORDERABLES Final Resu lt [facility] ([place]) 1 [facility] [place] [address] * Sepsis Lactate w/ Reflex (05/23/2025 6:59 PM CDT) Sepsis Lactate 0.8 0.7 - 2.0 mmol/L Blood 05/23/2025 6:59 PM CDT 05/23/2025 7:03 PM CDT us Juanito Henning MD LAB BLOOD ORDERABLES Final R esult Performing Organization Address City/[facility] Co de Phone Number [facility] ([place]) [address] [place] [address] * Blood culture Blood (05/23/2025 6:59 PM CDT) Report Final Report: No growth Comment:Testing performed by : [facility], [address] [place]., [address] Blood 05/23/2025 6:59 PM CDT 05/23/2025 9:32 PM CDT Narrative [facility] ([place]) - 05/28/2025 7:00 AM CDT From a different site than #1. 1. Blood cultures are incubated for 4 days on a continuously monitored blood culture system. The first report of a negative culture is issued within 24 hours of receipt of the specimen in the laboratory. 2. Positive culture results are reported as soon as they are detected. 3. The most important factor for detection of microbes in the setting of bloodstream infection is the volume of blood submitted for culture. Failure to collect an optimal blood volume can result in false negative blood cultures. 4. For pediatric patients, the recommended blood volume to collect follows a weight based strategy. See the electronic test catalog for collection instructions. 5. For positive blood cultures, a rapid molecular test may be performed for organism identification using the debra ePlex blood culture identification panel for gram positive (BCID-GP) and gram negative (BCID-GN) organisms. This nucleic acid amplification test detects microbial DNA in positive blood culture broth. This assay has been cleared by the [place] Food and Drug Administration and its performance characteristics have been verified by the [facility]. For questions about this culture, contact the Microbiology Laboratory at [phone]. Interpretive data was last revised on 24. us Juanito Henning MD LAB MICROBIOLOGY - GENERAL O RDERABLES Final Result [facility] ([place]) 1 [facility] Department [place] [address] * Blood culture Blood (05/23/2025 6:59 PM CDT) Report Final Report: No growth Comment:Testing performed by : [facility], 1 [place]., [address] Blood 05/23/2025 6:59 PM CDT 05/23/2025 9:32 PM CDT Narrative [facility] ([place]) - 05/28/2025 7:00 AM CDT 1. Blood cultures are incubated for 4 days on a continuously monitored blood culture system. The first report of a negative culture is issued within 24 hours of receipt of the specimen in the laboratory. 2. Positive culture results are reported as soon as they are detected. 3. The most important factor for detection of microbes in the setting of bloodstream infection is the volume of blood submitted for culture. Failure to collect an optimal blood volume can result in false negative blood cultures. 4. For pediatric patients, the recommended blood volume to collect follows a weight based strategy. See the electronic test catalog for collection instructions. 5. For positive blood cultures, a rapid molecular test may be performed for organism identification using the debra ePlex blood culture identification panel for gram positive (BCID-GP) and gram negative (BCID-GN) organisms. This nucleic acid amplification test detects microbial DNA in positive blood culture broth. This assay has been cleared by the [place] Food and Drug Administration and its performance characteristics have been verified by the [facility]. For questions about this culture, contact the Microbiology Laboratory at [phone]. Interpretive data was last revised on 24. us Juanito Henning MD LAB MICROBIOLOGY - GENERAL O RDERABLES Final Result [facility] ([facility]) 1 [facility] Department [place] [address] * (ABNORMAL) Urinalysis reflex to microscopic and culture Urine (05/23/2025 5:11 PM CDT) Color, ur Yellow Yellow Clarity, ur Turbid(A) Clear [facility] ([place]) Specific gravity, ur 1.027 1.003 - 1.030 [facility] ([place]) pH, urine 5.5 [facility] ([place]) Comment: Interpretive Data U rine pH is affected by diet, medications, systemic acid-base disturbances, and renal tubular function. pH may affect urinary stone formation. For example, urine pH below 6.0 may help reduce the tendency for calcium phosphate stones and pH greater than 6.0 may reduce the tendency for uric acid stone formation. Source: [facility] [employer] Current Interpretive Data was last revised on 2017 Protein, ur ql 1+(A) Negative [facility] ([facility]) Glucose, ur ql Negative Negative [facility] ([place]) Ketones, ur Negative Negative [facility] ([place]) Bilirubin, ur Negative Negative [facility] ([place]) Blood, ur 2+(A) Negative [facility] ([place]) Urobilinogen, ur <2.0 <2.0 mg/dL [facility] ([place]) Nitrite, ur Negative Negative [facility] ([place]) Leukocyte esterase, ur 4+(A) Negative [facility] ([place]) UA reflex comment Reflex to microscopic UA will be performed. [facility] ([place]) Urine 05/23/2025 5:11 PM CDT 05/23/2025 5:13 PM CDT us James Cooley MD LAB MICROBIOLOGY - GENERAL ORDERABLES Final Result Performing Organization Address [facility] Co de Phone Number [facility] ([place]) 1 [facility] [place] [address] * (ABNORMAL) Urinalysis, microscopic only (05/23/2025 5:11 PM CDT) WBC, ur >50(A) 0 - 5 /HPF RBC, ur 21-50(A) 0 - 2 /HPF [facility] ([place]) Epithelial cells, squamous, ur 1-5 0 - 5 /HPF [facility] ([place]) Bacteria, ur 4+(A) [facility] ([place]) Mucous, ur Present(A) [facility] ([place]) Culture Reflex Comment Reflex to urine culture will be performed. [facility] ([facility]) Urine 05/23/2025 5:11 PM CDT 05/23/2025 5:16 PM CDT James Cooley MD LAB URINE ORDERABLES Final Result Performing Organization Address [facility] Co de Phone Number [facility] ([place]) 1 [facility] [place] [address] * (ABNORMAL) Urine culture Urine (05/23/2025 5:11 PM CDT) Report Final Report: Greater than or equal to 100,000 colonies/mL of Enterococcus faecalis Plus growth of clinically insignificant bacterial zoey. (.) Comment:Testing performed by : [facility], [address] [place]., [address] Organism ENTEROCOCCUS FAECALIS [facility] ([place]) Organism PLUS GROWTH OF CLINICALLY INSIGNIFICANT ZOEY. [facility] ([place]) Urine 05/23/2025 5:11 PM CDT 05/23/2025 8:32 PM CDT Narrative [facility] ([place]) - 05/26/2025 12:46 PM CDT Urine culture reflexed based upon urinalysis results. Testing performed by [facility] ([phone]) Organism Antibiotic Method Susceptibility Enterococcus faecalis Ampicillin (LILIANA) INTERPRETATIO N Resistant Enterococcus faecalis Vancomycin (LILIANA) INTERPRETATIO N Susceptible Enterococcus faecalis Linezolid (LILIANA) INTERPRETATIO N Susceptible Enterococcus faecalis Doxycycline (LILIANA) INTERPRETATIO N Intermediate Enterococcus faecalis Nitrofurantoin (LLIIANA) INTERPRETAT ION Susceptible us Nelson Mello MD LAB MICROBIOLOGY - GENERAL ORD ERABLES Final Result [facility] [place]) 1 [facility] Department [place] [address] * CT Abdomen Pelvis W Contrast (05/23/2025 5:06 PM CDT) Anatomical Region Laterality Modality Body N/A Computed Tomogra phy 05/23/2025 5:11 PM CDT Narrative 05/23/2025 5:21 PM CDT EXAM DESCRIPTION: CT ABDOMEN PELVIS W CONTRAST REASON FOR STUDY: Abdominal pain, acute, nonlocalized c/o abdominal pain x 4 days. Hx of prostate cancer and BEBE TECHNIQUE: CT scan of the abdomen and pelvis performed with intravenous and without oral contrast using helical scanning technique with dynamic intravenous contrast injection. Reconstructed coronal and sagittal MPR images reviewed. All images stored on PACS. Automated exposure control was used as a dose optimization technique for this examination. CONTRAST TYPE/DOSE: 75mL of IOVERSOL 350 MG IODINE/ML INTRAVENOUS SYRINGE injected via intravenous COMPARISON: CT abdomen pelvis 02/16/2025 FINDINGS: LOWER CHEST: No significant pulmonary abnormalities. No effusion. LIVER: Normal size. Stable hypodensities likely representing hepatic cysts. No solid masses. GALLBLADDER: Stones. No wall thickening or pericholecystic fluid BILE DUCTS: No intrahepatic or extrahepatic ductal dilatation. SPLEEN: Normal size. No focal lesions. PANCREAS: No identified cystic or solid masses. No significant calcifications. No adjacent inflammation or peripancreatic fluid collections. Pancreatic duct not dilated. ADRENALS: Normal. KIDNEYS/URINARY TRACT: Simple left renal cyst. No solid masses. Right renal calculi, stable. No hydronephrosis or hydroureter. Symmetric enhancement. Decompressed urinary bladder with Emery catheter. There is circumferential wall thickening and trabeculations which may be secondary to chronic outlet obstruction and/or acute cystitis. GI: No dilated bowel loops. No obvious wall thickening. Uncomplicated colonic diverticulosis. PERITONEUM: No ascites or free air. RETROPERITONEUM: No mass or adenopathy. REPRODUCTIVE: Enlarged prostate measuring 6.2 cm. VASCULATURE: Aneurysmal dilatation of the infrarenal abdominal aorta measuring 5.0 x 5.4 cm in transverse X AP dimensions, previously 5.0 x 5.1 cm (). Ectatic right common iliac artery measuring 1.6 cm and left common iliac artery measuring 2.2 cm. MUSCULOSKELETAL: No significant abnormality. OTHER: No other abnormality. IMPRESSION: 1. No acute findings in the abdomen and pelvis. 2. Stable infrarenal abdominal aortic aneurysm measuring up to 5.4 cm, previously 5.1 cm. 5.0-5.4 cm Recommended 3. Prostatomegaly. 4. Circumferential wall thickening and trabeculations of the urinary bladder may be secondary to chronic outlet obstruction and/or acute cystitis. Correlate with urinalysis. THIS IS AN ELECTRONICALLY VERIFIED FINAL REPORT 05/23/2025 5:21 PM - Electronically signed by Maria Del Rosario Zuniga M.D. FT: FT Report ID: [id number] Reading Location: [place] [address] Procedure Note Maria Del Rosario Nixon MD - 05/23/2025 EXAM DESCRIPTION: CT ABDOMEN PELVIS W CONTRAST REASON FOR STUDY: Abdominal pain, acute, nonlocalized c/o abdominal pain x 4 days. Hx of prostate cancer and BEBE TECHNIQUE: CT scan of the abdomen and pelvis performed with intravenousand without oral contrast using helical scanning technique with dynamic intravenous contrast injection. Reconstructed coronal and sagittal MPRimages reviewed. All images stored on PACS. Automated exposure control was usedas a dose optimization technique for this examination. CONTRAST TYPE/DOSE: 75mL of IOVERSOL 350 MG IODINE/ML INTRAVENOUSSYRINGE injected via intravenous COMPARISON: CT abdomen pelvis 02/16/2025 FINDINGS: LOWER CHEST: No significant pulmonary abnormalities. No effusion. LIVER: Normal size. Stable hypodensities likely representing hepaticcysts. No solid masses. GALLBLADDER: Stones. No wall thickening or pericholecystic fluid BILE DUCTS: No intrahepatic or extrahepatic ductal dilatation. SPLEEN: Normal size. No focal lesions. PANCREAS: No identified cystic or solid masses. No significant calcifications. No adjacent inflammation or peripancreatic fluidcollections. Pancreatic duct not dilated. ADRENALS: Normal. KIDNEYS/URINARY TRACT: Simple left renal cyst. No solid masses. Right renal calculi, stable. No hydronephrosis or hydroureter. Symmetric enhancement. Decompressed urinary bladder with Emery catheter. Thereis circumferential wall thickening and trabeculations which may be secondaryto chronic outlet obstruction and/or acute cystitis. GI: No dilated bowel loops. No obvious wall thickening. Uncomplicated colonic diverticulosis. PERITONEUM: No ascites or free air. RETROPERITONEUM: No mass or adenopathy. REPRODUCTIVE: Enlarged prostate measuring 6.2 cm. VASCULATURE: Aneurysmal dilatation of the infrarenal abdominal aorta measuring 5.0 x 5.4 cm in transverse X AP dimensions, previously 5.0 x 5.1cm (). Ectatic right common iliac artery measuring 1.6 cm and leftcommon iliac artery measuring 2.2 cm. MUSCULOSKELETAL: No significant abnormality. OTHER: No other abnormality. IMPRESSION: 1. No acute findings in the abdomen and pelvis. 2. Stable infrarenal abdominal aortic aneurysm measuring up to 5.4 cm, previously 5.1 cm. 5.0-5.4 cm Recommended 3. Prostatomegaly. 4. Circumferential wall thickening and trabeculations of the urinarybladder may be secondary to chronic outlet obstruction and/or acute cystitis. Correlate with urinalysis. THIS IS AN ELECTRONICALLY VERIFIED FINAL REPORT 05/23/2025 5:21 PM - Electronically signed by Maria Del Rosario Zuniga M.D. FT: FT Report ID: [id number] Reading Location: [place] [address] us James Cooley MD IMG CT PROCEDURES Final Res ult * eGFR (05/23/2025 1:21 PM CDT) eGFR 77 >=60 mL/min/1. 73 m2 Comment: Interpretive Data Reference Interval Normal >/= 90 mL/min/1.73m2 Mildly decreased* 60 - 89 mL/min/1.73m2 Mildly to moderately decreased 45 - 59 mL/min/1.73m2 Moderately to severely decreased 30 - 44 mL/min/1.73m2 Severely decreased 15 - 29 mL/min/1.73m2 Kidney Failure < 15 mL/min/1.73m2 *Relative to young adult level Estimated glomerular filtration rate is determined by the 2020 CKD-EPI equation recommended by the National Kid[employer] (A Unifying Approach to GFR Estimation: Recommendations of the NKF-ASK Task Force on Reassessing the Inclusion of Race in Diagnosing Kidney Disease, JASN 2020). The CKD-EPI equation should not be used for patients with unstable renal function and has not been validated in children and those over 70. Current interpretive data was last reviewed 2021. Blood 05/23/2025 1:21 PM CDT 05/23/2025 1:24 PM CDT James Cooley MD LAB BLOOD ORDERABLES Final Result [facility] ([place]) 1 [facility] Department [place] [address] * (ABNORMAL) Differential, auto (05/23/2025 1:21 PM CDT) Neutrophil abs 10.79(H) 1.50 - 6.50 K/cumm Imm gran abs 0.04 0.00 - 0.10 K/cumm [facility] ([place]) Lymphocyte abs 1.02 0.80 - 3.30 K/cumm [facility] ([place]) Monocyte abs 1.18(H) 0.20 - 0.80 K/cumm [facility] ([place]) Eosinophil abs 0.08 0.00 - 0.50 K/cumm [facility] ([place]) Basophil abs 0.04 0.00 - 0.10 K/cumm [facility] ([place]) Neutrophil pct 82.0 % [facility] ([place]) Comment: Interpretive Data Percent cell count reference ranges are not reported, since discordance with absolute values may lead to misinterpretation of CBC data. Current Interpretive Data was last revised on 2018. Imm gran pct 0.3 % [facility] ([place]) Comment: Interpretive Data Percent cell count reference ranges are not reported, since discordance with absolute values may lead to misinterpretation of CBC data. Current Interpretive Data was last revised on 2018. Lymphocyte pct 7.8 % [facility] ([place]) Comment: Interpretive Data Percent cell count reference ranges are not reported, since discordance with absolute values may lead to misinterpretation of CBC data. Current Interpretive Data was last revised on 2018. Monocyte pct 9.0 % [facility] ([place]) Comment: Interpretive Data Percent cell count reference ranges are not reported, since discordance with absolute values may lead to misinterpretation of CBC data. Current Interpretive Data was last revised on 2018. Eosinophil pct 0.6 % [facility] ([place]) Comment: Interpretive Data Percent cell count reference ranges are not reported, since discordance with absolute values may lead to misinterpretation of CBC data. Current Interpretive Data was last revised on 2018. Basophil pct 0.3 % [facility] ([place]) Comment: Interpretive Data Percent cell count reference ranges are not reported, since discordance with absolute values may lead to misinterpretation of CBC data. Current Interpretive Data was last revised on 2018. Blood 05/23/2025 1:21 PM CDT 05/23/2025 1:24 PM CDT us James Cooley MD LAB BLOOD ORDERABLES Final Result [facility] ([place]) 1 [facility] Department [place] [address] * (ABNORMAL) CBC with auto differential (05/23/2025 1:21 PM CDT) WBC 13.15(H) 3.80 - 9.90 K/cumm Hgb 13.1 13.0 - 17.5 g/dL [facility] ([place]) Hct 37.4(L) 38.9 - 50.3 % [facility] ([place]) Plt 265 150 - 400 K/cumm [facility] ([place]) MPV 8.8(L) 9.1 - 12.3 fL [facility] ([place]) RBC 4.07(L) 4.30 - 5.80 M/cumm [facility] ([facility]) MCV 91.9 81.3 - 96.4 fL [facility] ([place]) MCH 32.2 27.1 - 33.3 pg [facility] ([place]) MCHC 35.0 32.3 - 35.7 g/dL [facility] ([place]) RDW CV 12.2 11.1 - 14.9 % [facility] ([place]) RDW SD 40.9 35.7 - 48.1 fL [facility] ([place]) NRBC abs 0.00 0.00 - 0.01 K/cumm [facility] ([facility]) Blood Venous blood specimen / Unknown 05/23/2025 1:21 PM CDT 05/23/2025 1:24 PM CDT James Cooley MD LAB BLOOD ORDERABLES Final Result Performing Organization Address City/[facility]/ZIP Co de Phone Number [facility] ([place]) 1 [facility] [employer] [address] * Lipase (05/23/2025 1:21 PM CDT) [facility] Lipase 23 10 - 99 Units/L Blood Venous blood specimen / Unknown 05/23/2025 1:21 PM CDT 05/23/2025 1:24 PM CDT James Cooley MD LAB BLOOD ORDERABLES Final Result Performing Organization Address City/[facility]/ZIP Co de Phone Number [facility] ([place]) 1 [facility] [place] [address] * (ABNORMAL) Comprehensive metabolic panel (05/23/2025 1:21 PM CDT) Pathologist [facility] [place] Sodium 136 135 - 145 mmol/L Potassium, pl 4.1 3.3 - 4.9 mmol/L [facility] ([facility]) Chloride 101 97 - 110 mmol/L [facility] ([place]) CO2 20(L) 22 - 32 mmol/L [facility] ([place]) Anion gap 15 2 - 15 mmol/L [facility] ([place]) BUN 19 6 - 25 mg/dL [facility] ([place]) Creatinine 0.97 0.80 - 1.30 mg/dL [facility] ([place]) Glucose 135 70 - 199 mg/dL [facility] ([place]) Comment: Interpretive Data Fasting glucose >/= 126 mg/dl is diagnostic for diabetes. Fasting is defined as no caloric intake for at least 8 hours. Fasting glucose between 100 mg/dl to 125 mg/dl is diagnostic of prediabetes. In a patient with classic symptoms of hyperglycemia or hyperglycemic crisis, a random glucose >/= 200 mg/dl is diagnostic for diabetes. In the absence of unequivocal hyperglycemia, results should be confirmed by repeat testing. The classification and Diagnosis of Diabetes Diabetes Care 202; 46: S19-S40. Current interpretive data was last revised 2022. Calcium 8.8 8.5 - 10.3 mg/dL [facility] ([place]) Bilirubin, total 0.7 0.1 - 1.2 mg/dL [facility] ([place]) Protein, pl 6.8 6.5 - 8.5 g/dL [facility] ([place]) Albumin 3.8 3.5 - 5.0 g/dL [facility] ([place]) Alk phos 101 40 - 130 Units/L [facility] ([place]) ALT 23 7 - 55 Units/L [facility] ([place]) AST 21 10 - 50 Units/L [facility] ([place]) Blood 05/23/2025 1:21 PM CDT 05/23/2025 1:24 PM CDT us James Cooley MD LAB BLOOD ORDERABLES Final Result [facility] ([facility]) 1 [facility] Department of Laboratories [place], [place] [id number] * (ABNORMAL) Urinalysis reflex to microscopic and culture Urine (05/04/2025 7:35 AM CDT) Color, ur Brown Clarity, ur Turbid(A) Clear [facility] ([place]) Specific gravity, ur See Comment 1.003 - 1.030 [facility] ([place]) Comment:Due to the presence of Urine Chromagens and/or Gross Blood, only a microscopic examination was performed. pH, urine See Comment [facility] ([place]) Comment: Due to the presence of Urine Chromagens and/or Gross Blood, only a microscopic examination was performed. Interpretive Data U rine pH is affected by diet, medications, systemic acid-base disturbances, and renal tubular function. pH may affect urinary stone formation. For example, urine pH below 6.0 may help reduce the tendency for calcium phosphate stones and pH greater than 6.0 may reduce the tendency for uric acid stone formation. Source: [facility] [employer] Current Interpretive Data was last revised on 2017 Protein, ur ql See Comment Negative [facility] ([place]) Comment:Due to the presence of Urine Chromagens and/or Gross Blood, only a microscopic examination was performed. Glucose, ur ql See Comment Negative [facility] ([place]) Comment:Due to the presence of Urine Chromagens and/or Gross Blood, only a microscopic examination was performed. Ketones, ur See Comment Negative [facility] ([place]) Comment:Due to the presence of Urine Chromagens and/or Gross Blood, only a microscopic examination was performed. Bilirubin, ur See Comment Negative [facility] ([place]) Comment:Due to the presence of Urine Chromagens and/or Gross Blood, only a microscopic examination was performed. Blood, ur See Comment Negative [facility] ([place]) Comment:Due to the presence of Urine Chromagens and/or Gross Blood, only a microscopic examination was performed. Urobilinogen, ur See Comment <2.0 mg/dL [facility] ([place]) Comment:Due to the presence of Urine Chromagens and/or Gross Blood, only a microscopic examination was performed. Nitrite, ur See Comment Negative [facility] ([place]) Comment:Due to the presence of Urine Chromagens and/or Gross Blood, only a microscopic examination was performed. Leukocyte esterase, ur See Comment Negative [facility] ([place]) Comment:Due to the presence of Urine Chromagens and/or Gross Blood, only a microscopic examination was performed. UA reflex comment Reflex to microscopic UA will be performed. [facility] ([place]) Urine 05/04/2025 7:35 AM CDT 05/04/2025 7:38 AM CDT us Yosvany Garcia MD LAB MICROBIOLOGY - GENERAL ORDERABLES Final Result Performing Organization Address City/[facility] Co de Phone Number [facility] ([place]) 1 [facility] [place] [address] * (ABNORMAL) Urinalysis, microscopic only (05/04/2025 7:35 AM CDT) WBC, ur 6-10(A) 0 - 5 /HPF RBC, ur 21-50(A) 0 - 2 /HPF [facility] ([place]) Epithelial cells, squamous, ur 1-5 0 - 5 /HPF [facility] ([place]) Bacteria, ur 1+(A) [facility] ([place]) Mucous, ur Present(A) [facility] ([place]) Culture Reflex Comment Reflex conditions for urine culture (WBC >10) not met. [facility] ([place]) Urine 05/04/2025 7:35 AM CDT 05/04/2025 7:38 AM CDT us Henry Mason MD LAB URINE ORDERABLES Final Re sult Performing Organization Address City/[facility] Co de Phone Number [facility] ([place]) 1 [facility] [place] [address] * eGFR (05/04/2025 5:10 AM CDT) eGFR 66 >=60 mL/min/1. 73 m2 Comment: Interpretive Data Reference Interval Normal >/= 90 mL/min/1.73m2 Mildly decreased* 60 - 89 mL/min/1.73m2 Mildly to moderately decreased 45 - 59 mL/min/1.73m2 Moderately to severely decreased 30 - 44 mL/min/1.73m2 Severely decreased 15 - 29 mL/min/1.73m2 Kidney Failure < 15 mL/min/1.73m2 *Relative to young adult level Estimated glomerular filtration rate is determined by the 2020 CKD-EPI equation recommended by the National Kidney Foundation (A Unifying Approach to GFR Estimation: Recommendations of the NKF-ASK Task Force on Reassessing the Inclusion of Race in Diagnosing Kidney Disease, JASN 2020). The CKD-EPI equation should not be used for patients with unstable renal function and has not been validated in children and those over 70. Current interpretive data was last reviewed 2021. Blood 05/04/2025 5:10 AM CDT 05/04/2025 5:29 AM CDT us Yosvany Garcia MD LAB BLOOD ORDERABLE S Final Result [facility] ([place]) 1 [facility] Department [place] [address] * (ABNORMAL) Differential, auto (05/04/2025 5:10 AM CDT) Neutrophil abs 9.60(H) 1.50 - 6.50 K/cumm Imm gran abs 0.04 0.00 - 0.10 K/cumm [facility] ([place]) Lymphocyte abs 0.88 0.80 - 3.30 K/cumm [facility] ([place]) Monocyte abs 0.66 0.20 - 0.80 K/cumm [facility] ([place]) Eosinophil abs 0.03 0.00 - 0.50 K/cumm [facility] ([place]) Basophil abs 0.04 0.00 - 0.10 K/cumm [facility] ([place]) Neutrophil pct 85.2 % [facility] ([place]) Comment: Interpretive Data Percent cell count reference ranges are not reported, since discordance with absolute values may lead to misinterpretation of CBC data. Current Interpretive Data was last revised on 2018. Imm gran pct 0.4 % [facility] ([place]) Comment: Interpretive Data Percent cell count reference ranges are not reported, since discordance with absolute values may lead to misinterpretation of CBC data. Current Interpretive Data was last revised on 2018. Lymphocyte pct 7.8 % [facility] ([place]) Comment: Interpretive Data Percent cell count reference ranges are not reported, since discordance with absolute values may lead to misinterpretation of CBC data. Current Interpretive Data was last revised on 2018. Monocyte pct 5.9 % [facility] ([place]) Comment: Interpretive Data Percent cell count reference ranges are not reported, since discordance with absolute values may lead to misinterpretation of CBC data. Current Interpretive Data was last revised on 2018. Eosinophil pct 0.3 % [facility] ([place]) Comment: Interpretive Data Percent cell count reference ranges are not reported, since discordance with absolute values may lead to misinterpretation of CBC data. Current Interpretive Data was last revised on 2018. Basophil pct 0.4 % [facility] ([place]) Comment: Interpretive Data Percent cell count reference ranges are not reported, since discordance with absolute values may lead to misinterpretation of CBC data. Current Interpretive Data was last revised on 2018. Blood 05/04/2025 5:10 AM CDT 05/04/2025 5:29 AM CDT us Yosvany Garcia MD LAB BLOOD ORDERABLE S Final Result [facility] ([place]) 1 [facility] Department [place] [address] * (ABNORMAL) CBC with auto differential (05/04/2025 5:10 AM CDT) WBC 11.25(H) 3.80 - 9.90 K/cumm Hgb 15.3 13.0 - 17.5 g/dL [facility] ([place]) Hct 44.6 38.9 - 50.3 % [facility] ([place]) Plt 252 150 - 400 K/cumm [facility] ([place]) MPV 9.4 9.1 - 12.3 fL [facility] ([place]) RBC 4.75 4.30 - 5.80 M/cumm [facility] ([place]) MCV 93.9 81.3 - 96.4 fL [facility] ([place]) MCH 32.2 27.1 - 33.3 pg [facility] ([place]) MCHC 34.3 32.3 - 35.7 g/dL [facility] ([place]) RDW CV 12.8 11.1 - 14.9 % [facility] ([place]) RDW SD 44.2 35.7 - 48.1 fL [facility] ([place]) NRBC abs 0.00 0.00 - 0.01 K/cumm [facility] ([place]) Blood Venous blood specimen / Unknown 05/04/2025 5:10 AM CDT 05/04/2025 5:29 AM CDT Yosvany Garcia MD LAB BLOOD ORDERABLE S Final Result [facility] ([place]) 1 [facility] [place] [address] * Lipase (05/04/2025 5:10 AM CDT) Pathologist [facility] [place] Lipase 27 10 - 99 Units/L Blood Venous blood specimen / Unknown 05/04/2025 5:10 AM CDT 05/04/2025 5:29 AM CDT Yosvany Gracia MD LAB BLOOD ORDERABLE S Final Result Performing Organization Address City/[facility]/ZIP Co de Phone Number [facility] ([place]) 1 [facility] [place] [place] [address] * (ABNORMAL) Comprehensive metabolic panel (05/04/2025 5:10 AM CDT) Sodium 142 135 - 145 mmol/L Potassium, pl 4.4 3.3 - 4.9 mmol/L [facility] ([place]) Chloride 105 97 - 110 mmol/L [facility] ([place]) CO2 20(L) 22 - 32 mmol/L [facility] ([place]) Anion gap 17(H) 2 - 15 mmol/L [facility] ([place]) BUN 24 6 - 25 mg/dL [facility] ([place]) Creatinine 1.10 0.80 - 1.30 mg/dL [facility] ([place]) Glucose 176 70 - 199 mg/dL [facility] ([place]) Comment: Interpretive Data Fasting glucose >/= 126 mg/dl is diagnostic for diabetes. Fasting is defined as no caloric intake for at least 8 hours. Fasting glucose between 100 mg/dl to 125 mg/dl is diagnostic of prediabetes. In a patient with classic symptoms of hyperglycemia or hyperglycemic crisis, a random glucose >/= 200 mg/dl is diagnostic for diabetes. In the absence of unequivocal hyperglycemia, results should be confirmed by repeat testing. The classification and Diagnosis of Diabetes Diabetes Care 2021; 46: S19-S40. Current interpretive data was last revised 2022. Calcium 9.2 8.5 - 10.3 mg/dL [facility] ([place]) Bilirubin, total 0.5 0.1 - 1.2 mg/dL [facility] ([place]) Protein, pl 7.4 6.5 - 8.5 g/dL [facility] ([place]) Albumin 4.4 3.5 - 5.0 g/dL [facility] ([place]) Alk phos 105 40 - 130 Units/L [facility] ([place]) ALT 18 7 - 55 Units/L [facility] ([place]) AST 20 10 - 50 Units/L [facility] ([place]) Blood 05/04/2025 5:10 AM CDT 05/04/2025 5:29 AM CDT us Yosvany Garcia MD LAB BLOOD ORDERABLE S Final Result [facility] ([place]) 1 [facility] Department [place] [address] * eGFR (05/01/2025 1:18 PM CDT) eGFR 75 >=60 mL/min/1. 73 m2 Comment: Interpretive Data Reference Interval Normal >/= 90 mL/min/1.73m2 Mildly decreased* 60 - 89 mL/min/1.73m2 Mildly to moderately decreased 45 - 59 mL/min/1.73m2 Moderately to severely decreased 30 - 44 mL/min/1.73m2 Severely decreased 15 - 29 mL/min/1.73m2 Kidney Failure < 15 mL/min/1.73m2 *Relative to young adult level Estimated glomerular filtration rate is determined by the 2020 CKD-EPI equation recommended by the National Kidney Foundation (A Unifying Approach to GFR Estimation: Recommendations of the NKF-ASK Task Force on Reassessing the Inclusion of Race in Diagnosing Kidney Disease, JASN 2020). The CKD-EPI equation should not be used for patients with unstable renal function and has not been validated in children and those over 70. Current interpretive data was last reviewed 2021. Testing performed by: [facility], [address] [place] [address]., [address] Blood 05/01/2025 1:18 PM CDT 05/01/2025 7:22 PM CDT Zoie Jarquin NP LAB BLOOD ORDERABLES Final Re sult [facility] ([place]) 1 [facility] Department [place] [address] * Differential, auto (05/01/2025 1:18 PM CDT) Neutrophil abs 5.91 1.50 - 6.50 K/cumm Comment:Testing performed by : [facility], [address] [place] [address]., [address] Imm gran abs 0.02 0.00 - 0.10 K/cumm [facility] ([place]) Comment:Testing performed by : [address] [address] Lymphocyte abs 1.60 0.80 - 3.30 K/cumm [facility] ([place]) Comment:Testing performed by : [address] [address] Monocyte abs 0.80 0.20 - 0.80 K/cumm [facility] ([place]) Comment:Testing performed by : [address] [address] Eosinophil abs 0.29 0.00 - 0.50 K/cumm [facility] ([place]) Comment:Testing performed by : [address] [address] Basophil abs 0.07 0.00 - 0.10 K/cumm [facility] ([place]) Comment:Testing performed by : [facility], [address], [place]., [address] Neutrophil pct 68.1 % [facility] ([place]) Comment: Interpretive Data Percent cell count reference ranges are not reported, since discordance with absolute values may lead to misinterpretation of CBC data. Current Interpretive Data was last revised on 2018. Testing performed by: [facility], [address] [place] [address]., [address] Imm gran pct 0.2 % [facility] ([place]) Comment: Interpretive Data Percent cell count reference ranges are not reported, since discordance with absolute values may lead to misinterpretation of CBC data. Current Interpretive Data was last revised on 2018. Testing performed by: [facility], [address] [place] [address]., [address] Lymphocyte pct 18.4 % [facility] ([place]) Comment: Interpretive Data Percent cell count reference ranges are not reported, since discordance with absolute values may lead to misinterpretation of CBC data. Current Interpretive Data was last revised on 2018. Testing performed by: [address] [address] Monocyte pct 9.2 % [facility] ([place]) Comment: Interpretive Data Percent cell count reference ranges are not reported, since discordance with absolute values may lead to misinterpretation of CBC data. Current Interpretive Data was last revised on 2018. Testing performed by: [facility], [address] [place] [address]., [address] Eosinophil pct 3.3 % [facility] ([place]) Comment: Interpretive Data Percent cell count reference ranges are not reported, since discordance with absolute values may lead to misinterpretation of CBC data. Current Interpretive Data was last revised on 2018. Testing performed by: [address] [address] Basophil pct 0.8 % [facility] ([place]) Comment: Interpretive Data Percent cell count reference ranges are not reported, since discordance with absolute values may lead to misinterpretation of CBC data. Current Interpretive Data was last revised on 2018. Testing performed by: [address] [address] Blood 05/01/2025 1:18 PM CDT 05/01/2025 6:25 PM CDT us Zoie Jarquin NP LAB BLOOD ORDERABLES Final Re sult [facility] ([place]) 1 [facility] Department [place] [address] * (ABNORMAL) Urinalysis reflex to microscopic and culture Urine, clean voided (05/01/2025 1:18 PM CDT) Color, ur Yellow Yellow Comment:Testing performed by : [address] [address] Clarity, ur Turbid(A) Clear [facility] ([place]) Comment:Testing performed by : [address] [address] Specific gravity, ur 1.026 1.003 - 1.030 [facility] ([place]) Comment:Testing performed by : [address], [address] pH, urine 5.5 [facility] ([place]) Comment: Interpretive Data U rine pH is affected by diet, medications, systemic acid-base disturbances, and renal tubular function. pH may affect urinary stone formation. For example, urine pH below 6.0 may help reduce the tendency for calcium phosphate stones and pH greater than 6.0 may reduce the tendency for uric acid stone formation. Source: [facility] Current Interpretive Data was last revised on 2017 Testing performed by: [address] [address] Protein, ur ql Trace Negative [facility] ([place]) Comment:Testing performed by : [address] [address] Glucose, ur ql Negative Negative [facility] ([place]) Comment:Testing performed by : [address] [address] Ketones, ur Negative Negative [facility] ([place]) Comment:Testing performed by : [address] [address] Bilirubin, ur Negative Negative [facility] ([place]) Comment:Testing performed by : [address], [address] Blood, ur 3+(A) Negative [facility] ([place]) Comment:Testing performed by : [facility], [address] [place] [address], [address] Urobilinogen, ur <2.0 <2.0 mg/dL [facility] ([place]) Comment:Testing performed by : [facility], [address] [place] [address], [address] Nitrite, ur Negative Negative [facility] ([place]) Comment:Testing performed by : [facility], [address] [place] [address], [address] Leukocyte esterase, ur 1+(A) Negative [facility] ([place]) Comment:Testing performed by : [address], [address] UA reflex comment Reflex to microscopic UA will be performed. [facility] ([place]) Comment:Testing performed by : [address], [address] Urine, clean voided 05/01/2025 1:18 PM CDT 05/01/2025 6:25 PM CDT Zoie Jarquin NP LAB MICROBIOLOGY - GENERAL OR DERABLES Final Result [facility] ([place]) 1 [facility] Department [place] [address] * CBC with auto differential (05/01/2025 1:18 PM CDT) WBC 8.69 3.80 - 9.90 K/cumm Comment:Testing performed by : [address], [address] Hgb 15.1 13.0 - 17.5 g/dL [facility] ([place]) Comment:Testing performed by : [address], [address] Hct 44.4 38.9 - 50.3 % [facility] ([place]) Comment:Testing performed by : [address], [address] Plt 239 150 - 400 K/cumm [facility] ([place]) Comment:Testing performed by : [address], [address] MPV 10.2 9.1 - 12.3 fL [facility] ([place]) Comment:Testing performed by : [address], [address] RBC 4.61 4.30 - 5.80 M/cumm [facility] ([place]) Comment:Testing performed by : [address], [address] MCV 96.3 81.3 - 96.4 fL [facility] ([place]) Comment:Testing performed by : [address], [address] MCH 32.8 27.1 - 33.3 pg [facility] ([place]) Comment:Testing performed by : [address], [address] MCHC 34.0 32.3 - 35.7 g/dL [facility] ([place]) Comment:Testing performed by : [address], [address] RDW CV 12.9 11.1 - 14.9 % [facility] ([place]) Comment:Testing performed by : [address], [address] RDW SD 45.9 35.7 - 48.1 fL [facility] ([place]) Comment:Testing performed by : [address], [address] NRBC abs 0.00 0.00 - 0.01 K/cumm [facility] ([place]) Comment:Testing performed by : [address], [address] Blood 05/01/2025 1:18 PM CDT 05/01/2025 6:25 PM CDT Zoie Jarquin [employer] LAB BLOOD ORDERABLES Final Re sult [facility] ([place]) 1 [facility] Department [place] [address] * (ABNORMAL) Urinalysis, microscopic only (05/01/2025 1:18 PM CDT) WBC, ur 11-20(A) 0 - 5 /HPF Comment:Testing performed by : [facility], [address] [place] [address]., [address] RBC, ur 21-50(A) 0 - 2 /HPF [facility] ([place]) Comment:Testing performed by : [facility], [address] [place] [address], [address] Epithelial cells, squamous, ur 1-5 0 - 5 /HPF [facility] ([place]) Comment:Testing performed by : [facility], [address] [place] [address], [address] Bacteria, ur 2+(A) [facility] ([place]) Comment:Testing performed by : [address], [address] Mucous, ur Present(A) [facility] ([place]) Comment:Testing performed by : [address], [address] Culture Reflex Comment Reflex to urine culture will be performed. [facility] ([place]) Comment:Testing performed by : [facility], [address] [place] [address], [address] Urine, clean voided 05/01/2025 1:18 PM CDT 05/01/2025 6:25 PM CDT Zoie Jarquin NP LAB URINE ORDERABLES Final Re sult [facility] ([place]) 1 [facility] Department [place] [address] * (ABNORMAL) Urine culture Urine, clean voided (05/01/2025 1:18 PM CDT) Report Final Report: Greater than or equal to 100,000 colonies/mL of Enterococcus faecalis Plus growth of clinically insignificant bacterial zoey. (.) Comment:Testing performed by : [facility], [address] [place]., [address] Organism ENTEROCOCCUS FAECALIS [facility] ([place]) Organism PLUS GROWTH OF CLINICALLY INSIGNIFICANT ZOEY. [facility] ([place]) Urine, clean voided 05/01/2025 1:18 PM CDT 05/01/2025 11:42 PM CDT Narrative [facility] ([place]) - 05/05/2025 6:20 AM CDT Urine culture reflexed based upon urinalysis results. Testing performed by [facility] ([phone]) Organism Antibiotic Method Susceptibility Enterococcus faecalis Ampicillin (LILIANA) INTERPRETATIO N Susceptible Enterococcus faecalis Vancomycin (LILIANA) INTERPRETATIO N Susceptible Enterococcus faecalis Linezolid (LILIANA) INTERPRETATIO N Susceptible Enterococcus faecalis Doxycycline (LILIANA) INTERPRETATIO N Intermediate Enterococcus faecalis Nitrofurantoin (LILAINA) INTERPRETAT ION Susceptible Zoie Jarquin NP LAB MICROBIOLOGY - GENERAL OR DERABLES Final Result [facility] ([place]) 1 [facility] Department [place] [address] * Comprehensive metabolic panel (05/01/2025 1:18 PM CDT) Sodium 143 135 - 145 mmol/L Comment:Testing performed by : [address] [address] Potassium, pl 4.1 3.3 - 4.9 mmol/L [facility] ([place]) Comment:Testing performed by : [address] [address] Chloride 109 97 - 110 mmol/L [facility] ([place]) Comment:Testing performed by : [address] [address] CO2 24 22 - 32 mmol/L [facility] ([place]) Comment:Testing performed by : [address] [address] Anion gap 10 2 - 15 mmol/L [facility] ([place]) Comment:Testing performed by : [address], [address] BUN 24 6 - 25 mg/dL [facility] ([place]) Comment:Testing performed by : [address], [address] Creatinine 0.99 0.80 - 1.30 mg/dL [facility] ([facility]) Comment:Testing performed by : [address] [address] Glucose 91 70 - 199 mg/dL [facility] ([place]) Comment: Interpretive Data Fasting glucose >/= 126 mg/dl is diagnostic for diabetes. Fasting is defined as no caloric intake for at least 8 hours. Fasting glucose between 100 mg/dl to 125 mg/dl is diagnostic of prediabetes. In a patient with classic symptoms of hyperglycemia or hyperglycemic crisis, a random glucose >/= 200 mg/dl is diagnostic for diabetes. In the absence of unequivocal hyperglycemia, results should be confirmed by repeat testing. The classification and Diagnosis of Diabetes Diabetes Care 2021; 46: S19-S40. Current interpretive data was last revised 2022. Testing performed by: [address] [address] Calcium 9.2 8.5 - 10.3 mg/dL [facility] ([place]) Comment:Testing performed by : [address] [address] Bilirubin, total 0.4 0.1 - 1.2 mg/dL [facility] ([place]) Comment:Testing performed by : [address] [address] Protein, pl 6.7 6.5 - 8.5 g/dL [facility] ([place]) Comment:Testing performed by : [address], [address] Albumin 4.3 3.5 - 5.0 g/dL [facility] ([place]) Comment:Testing performed by : [address], [address] Alk phos 84 40 - 130 Units/L [facility] ([place]) Comment:Testing performed by : [address], [address] ALT 21 7 - 55 Units/L [facility] ([place]) Comment:Testing performed by : [address], [address] AST 27 10 - 50 Units/L [facility] ([place]) Comment:Testing performed by : [address], [address] Blood 05/01/2025 1:18 PM CDT 05/01/2025 6:25 PM CDT Zoie Jarquin NP LAB BLOOD ORDERABLES Final Re sult Performing Organization Address [facility]/ZIP Co de Phone Number [facility] ([place]) 1 [facility] [place] [address] * Hemoglobin A1c (05/01/2025 1:16 PM CDT) Hgb A1C 5.4 4.0 - 5.6 % Comment:Testing performed by : [facility], [address] [place] [address], [address] Estimated Average Glucose 108 mg/dL [facility] ([place]) Comment: The ADA recommends reporting an estimated Average Glucose (eAG) with all Hemoglobin A1c results using the equation derived from a study of 507 normal and diabetic adults. Minority populations were underrepresented and children were not included. (Diabetes Care 31:7078-0358, 2008). The eAG is not equivalent to a fasting glucose. Testing performed by: [facility], [address] [place] [address]., [address] Blood 05/01/2025 1:16 PM CDT 05/01/2025 6:19 PM CDT Britton Swanson MD LAB BLOOD ORDERABLES More l Result Performing Organization Address [facility] Co de Phone Number [facility] ([place]) [address] [place] [address] [place] [place] [address] * (ABNORMAL) Lipid panel (05/01/2025 1:16 PM CDT) Cholesterol 148 30 - 199 mg/dL Comment: Interpretive Data Ages < or = 19 years Acceptable: <170 mg/dL Borderline high: 170-199 mg/dL High: >or= 200 mg/dL Ages > or = 20 years Desirable: <200 mg/dL Borderline high: 200-239 mg/dL High: >or= 240 mg/dL Literature References: 1. Expert Panel on Integrated Guidelines for Cardiovascular Health and Risk Reduction in Children and Adolescents. Pediatrics 2011;128:S213 2. NCEP Expert Panel. Circulation 2004;110:227 Current Interpretive Data was last revised on 2018. Testing performed by: [facility], [address] [place] [address]., [address] Triglycerides 323(H) <=149 mg/dL [facility] ([place]) Comment: Interpretive Data Ages < or = 9 years Acceptable: <75 mg/dL Borderline high: 75-99 mg/dL High: >or= 100 mg/dL Ages 10 to 20 years Acceptable: <90 mg/dL Borderline high: 90-129 mg/dL High: >or= 130 mg/dL Ages > or = 20 years Desirable: <150 mg/dL Borderline high: 150-199 mg/dL High: 200-499 mg/dL Very high: >or= 499 mg/dL Literature References: 1. Expert Panel on Integrated Guidelines for Cardiovascular Health and Risk Reduction in Children and Adolescents. Pediatrics 2011;128:S213 2. NCEP Expert Panel. Circulation 2004;110:227 Current Interpretive Data was last revised on 2018. Testing performed by: [facility], [address] [place] [address]., [address] HDL 26(L) >=40 mg/dL [facility] ([place]) Comment: Interpretive Data Ages < or = 19 years Acceptable: >45 mg/dL Borderline low: 40-45 mg/dL Low: <40 mg/dL Ages > or = 20 years Desirable: >or= 60 mg/dL Low: <40 mg/dL Literature References: 1. Expert Panel on Integrated Guidelines for Cardiovascular Health and Risk Reduction in Children and Adolescents. Pediatrics 2011;128:S213 2. NCEP Expert Panel. Circulation 2004;110:227 Current Interpretive Data was last revised on 2018. Testing performed by: [facility], [address] [place] [address]., [address] LDL, calculated 70 <=129 mg/dL [facility] ([place]) Comment: Interpretive Data Ages < or = 19 years Acceptable: <110 mg/dL Borderline high: 110-129 mg/dL High: >or= 130 mg/dL Ages > or = 20 years Optimal: <100 mg/dL Near optimal: 100-129 mg/dL Borderline high: 130-159 mg/dL High: >160 mg/dL Calculated using the Nikolay LDL-C estimating equation. This equation was implemented on 2024. Prior to this date LDL-C was estimated using the Friedewald equation. Literature References: 1. Expert Panel on Integrated Guidelines for Cardiovascular Health and Risk Reduction in Children and Adolescents. Pediatrics 2011;128:S213 2. NCEP Expert Panel. Circulation 2004;110:227 3. Nikolay M et al. MISAEL Cardiol. 2020 March 23;5(5):540-548. doi: 10.1001/jamacardio.2020.0013 Current Interpretive Data was last revised on 2024. Testing performed by: [address] [address] Non-HDL Cholesterol 122 mg/dL [facility] ([place]) Comment: Interpretive Data Ages < or = 19 years Acceptable: <120 mg/dL Borderline high: 120-144 mg/dL High: >145 mg/dL Ages > or = 20 years When triglycerides are >200 mg/dL, Non-HDL cholesterol is a secondary target of therapy with treatment goals that are 30 mg/dL greater than the LDL cholesterol target. Literature References: 1. Expert Panel on Integrated Guidelines for Cardiovascular Health and Risk Reduction in Children and Adolescents. Pediatrics 2011;128:S213 2. NCEP Expert Panel. Circulation 2004;110:227 Current Interpretive Data was last revised on 2018. Testing performed by: [address] [address] Chol/HDL ratio 6 MALDONADO [facility] ([place]) Comment:Testing performed by : [address] [address] Blood 05/01/2025 1:16 PM CDT 05/01/2025 6:19 PM CDT us Britton Swanson MD LAB BLOOD ORDERABLES More jameson Result [facility] ([place]) 1 [facility] Department [place] [address] * POCT glucose (04/22/2025 12:00 PM CDT) Glucose, POC 101 70 - 199 mg/dL Blood 04/22/2025 12:0 0 PM CDT 04/22/2025 12:00 PM CDT Reggie Dominguez Jr., MD LAB POCT ORDERABLES - DEVICE Final Result [facility] ([place]) 1 [facility] [place] [address] * POCT glucose (04/22/2025 7:47 AM CDT) Glucose, POC 96 70 - 199 mg/dL Blood 04/22/2025 7:47 AM CDT 04/22/2025 7:47 AM CDT Reggie Dominguez Jr., MD LAB POCT ORDERABLES - DEVICE Final Result Performing Organization Address City/[facility] Co de Phone Number CATHIE CREWS ([place]) 1 [facility] [place] [address] * eGFR (04/22/2025 2:12 AM CDT) eGFR 72 >=60 mL/min/1. 73 m2 Comment: Interpretive Data Reference Interval Normal >/= 90 mL/min/1.73m2 Mildly decreased* 60 - 89 mL/min/1.73m2 Mildly to moderately decreased 45 - 59 mL/min/1.73m2 Moderately to severely decreased 30 - 44 mL/min/1.73m2 Severely decreased 15 - 29 mL/min/1.73m2 Kidney Failure < 15 mL/min/1.73m2 *Relative to young adult level Estimated glomerular filtration rate is determined by the 2020 CKD-EPI equation recommended by the National Kidney Foundation (A Unifying Approach to GFR Estimation: Recommendations of the NKF-ASK Task Force on Reassessing the Inclusion of Race in Diagnosing Kidney Disease, JASN 2020). The CKD-EPI equation should not be used for patients with unstable renal function and has not been validated in children and those over 70. Current interpretive data was last reviewed 2021. Blood 04/22/2025 2:12 AM CDT 04/22/2025 2:50 AM CDT us Janak Coy MD LAB BLOOD ORDERABLES Fi nal Result [facility] ([place]) 1 [facility] Department [place] [address] * (ABNORMAL) Differential, auto (04/22/2025 2:12 AM CDT) Neutrophil abs 3.85 1.50 - 6.50 K/cumm Imm gran abs 0.02 0.00 - 0.10 K/cumm [facility] ([place]) Lymphocyte abs 1.69 0.80 - 3.30 K/cumm [facility] ([place]) Monocyte abs 0.73 0.20 - 0.80 K/cumm [facility] ([place]) Eosinophil abs 0.72(H) 0.00 - 0.50 K/cumm [facility] ([place]) Basophil abs 0.05 0.00 - 0.10 K/cumm [facility] ([place]) Neutrophil pct 54.6 % [facility] ([place]) Comment: Interpretive Data Percent cell count reference ranges are not reported, since discordance with absolute values may lead to misinterpretation of CBC data. Current Interpretive Data was last revised on 2018. Imm gran pct 0.3 % [facility] ([place]) Comment: Interpretive Data Percent cell count reference ranges are not reported, since discordance with absolute values may lead to misinterpretation of CBC data. Current Interpretive Data was last revised on 2018. Lymphocyte pct 23.9 % [facility] ([place]) Comment: Interpretive Data Percent cell count reference ranges are not reported, since discordance with absolute values may lead to misinterpretation of CBC data. Current Interpretive Data was last revised on 2018. Monocyte pct 10.3 % [facility] ([place]) Comment: Interpretive Data Percent cell count reference ranges are not reported, since discordance with absolute values may lead to misinterpretation of CBC data. Current Interpretive Data was last revised on 2018. Eosinophil pct 10.2 % [facility] ([place]) Comment: Interpretive Data Percent cell count reference ranges are not reported, since discordance with absolute values may lead to misinterpretation of CBC data. Current Interpretive Data was last revised on 2018. Basophil pct 0.7 % [facility] ([place]) Comment: Interpretive Data Percent cell count reference ranges are not reported, since discordance with absolute values may lead to misinterpretation of CBC data. Current Interpretive Data was last revised on 2018. Blood 04/22/2025 2:12 AM CDT 04/22/2025 2:49 AM CDT us Janak Coy MD LAB BLOOD ORDERABLES Fi nal Result [facility] ([place]) 1 [facility] Department [place] [address] * (ABNORMAL) CBC with auto differential (04/22/2025 2:12 AM CDT) WBC 7.06 3.80 - 9.90 K/cumm Hgb 13.2 13.0 - 17.5 g/dL [facility] ([place]) Hct 38.7(L) 38.9 - 50.3 % [facility] ([place]) Plt 166 150 - 400 K/cumm [facility] ([place]) MPV 9.4 9.1 - 12.3 fL [facility] ([place]) RBC 4.09(L) 4.30 - 5.80 M/cumm [facility] ([place]) MCV 94.6 81.3 - 96.4 fL [facility] ([place]) MCH 32.3 27.1 - 33.3 pg [facility] ([place]) MCHC 34.1 32.3 - 35.7 g/dL [facility] ([place]) RDW CV 12.8 11.1 - 14.9 % [facility] ([place]) RDW SD 44.2 35.7 - 48.1 fL [facility] ([place]) NRBC abs 0.00 0.00 - 0.01 K/cumm [facility] ([place]) Blood 04/22/2025 2:12 AM CDT 04/22/2025 2:49 AM CDT Janak Coy MD LAB BLOOD ORDERABLES Fi nal Result CATHIE CREWS ([place]) 1 [place] [address] * Magnesium (04/22/2025 2:12 AM CDT) Magnesium 1.7 1.4 - 2.5 mg/dL Blood 04/22/2025 2:12 AM CDT 04/22/2025 2:50 AM CDT Janak Coy MD LAB BLOOD ORDERABLES Fi nal Result Performing Organization Address [facility] Co de Phone Number CATHIE CREWS ([place]) 1 [facility] [place] [place] [address] * (ABNORMAL) Comprehensive metabolic panel (04/22/2025 2:12 AM CDT) Sodium 141 135 - 145 mmol/L Potassium, pl 3.9 3.3 - 4.9 mmol/L [facility] ([place]) Chloride 107 97 - 110 mmol/L [facility] ([place]) CO2 22 22 - 32 mmol/L [facility] ([place]) Anion gap 12 2 - 15 mmol/L [facility] ([place]) BUN 23 6 - 25 mg/dL [facility] ([place]) Creatinine 1.02 0.80 - 1.30 mg/dL [facility] ([place]) Glucose 95 70 - 199 mg/dL [facility] ([place]) Comment: Interpretive Data Fasting glucose >/= 126 mg/dl is diagnostic for diabetes. Fasting is defined as no caloric intake for at least 8 hours. Fasting glucose between 100 mg/dl to 125 mg/dl is diagnostic of prediabetes. In a patient with classic symptoms of hyperglycemia or hyperglycemic crisis, a random glucose >/= 200 mg/dl is diagnostic for diabetes. In the absence of unequivocal hyperglycemia, results should be confirmed by repeat testing. The classification and Diagnosis of Diabetes Diabetes Care 2021; 46: S19-S40. Current interpretive data was last revised 2022. Calcium 8.4(L) 8.5 - 10.3 mg/dL [facility] ([place]) Bilirubin, total 0.5 0.1 - 1.2 mg/dL [facility] ([place]) Protein, pl 5.7(L) 6.5 - 8.5 g/dL [facility] ([place]) Albumin 3.5 3.5 - 5.0 g/dL [facility] ([place]) Alk phos 64 40 - 130 Units/L [facility] ([place]) ALT 16 7 - 55 Units/L [facility] ([place]) AST 19 10 - 50 Units/L [facility] ([place]) Blood 04/22/2025 2:12 AM CDT 04/22/2025 2:50 AM CDT us Janak Coy MD LAB BLOOD ORDERABLES Fi nal Result CATHIE CREWS ([place]) 1 [facility] [place] [address] * POCT glucose (04/22/2025 1:39 AM CDT) Glucose, POC 101 70 - 199 mg/dL Blood 04/22/2025 1:39 AM CDT 04/22/2025 1:39 AM CDT us Reggie Dominguez Jr., MD LAB POCT ORDERABLES - DEVICE Final Result CATHIE CREWS ([place]) 1 [facility] [place] [address] * POCT glucose (04/21/2025 8:26 PM CDT) Glucose, POC 169 70 - 199 mg/dL Blood 04/21/2025 8:26 PM CDT 04/21/2025 8:26 PM CDT Reggie Dominguez Jr., MD LAB POCT ORDERABLES - DEVICE Final Result Performing Organization Address [facility] Co de Phone Number CATHIE [place]res[place]) 1 [facility] [place] [address] * POCT glucose (04/21/2025 4:59 PM CDT) Glucose, POC 98 70 - 199 mg/dL Blood 04/21/2025 4:59 PM CDT 04/21/2025 4:59 PM CDT us Reggie Dominguez Jr., MD LAB POCT ORDERABLES - DEVICE Final Result Performing Organization Address [facility] de Phone Number CATHIE [place]) 1 [place] [address] * POCT glucose (04/21/2025 12:00 PM CDT) Glucose, POC 101 70 - 199 mg/dL Blood 04/21/2025 12:0 0 PM CDT 04/21/2025 12:00 PM CDT Regige Dominguez Jr., MD LAB POCT ORDERABLES - DEVICE Final Result Performing Organization Address [facility] de Phone Number CATHIE CREWS ([place]) [address] [place] [address] [place] [address] * US Kidney Complete (04/21/2025 10:11 AM CDT) Anatomical Region Laterality Modality Kidney N/A Ultrasound 04/21/2025 11:0 6 AM CDT Narrative 04/21/2025 11:09 AM CDT EXAM DESCRIPTION: US KIDNEY COMPLETE REASON FOR STUDY: Concern for postobstructive BEBE TECHNIQUE: Ultrasound of the kidneys and urinary bladder was performed with grayscale imaging. COMPARISON: CT abdomen and pelvis 02/16/2025 FINDINGS: RIGHT KIDNEY: The right kidney measures 11.8 cm in length. There is no hydronephrosis. There is normal cortical thickness and echogenicity. LEFT KIDNEY: The left kidney measures 11.5 cm in length. There is no hydronephrosis. There is normal cortical thickness and echogenicity. There is a 7.0 x 5.5 x 5.9 cm cyst containing thin internal septation in the left kidney. URINARY BLADDER: Decompressed with Emery catheter OTHER: No other additional findings. IMPRESSION: Normal renal ultrasound. Left renal cyst containing thin internal septation. THIS IS AN ELECTRONICALLY VERIFIED FINAL REPORT 04/21/2025 11:09 AM - Electronically signed by Maria Del Rosario Zuniga M.D. FT: FT Report ID: [id number] Reading Location: [place] [address] Procedure Note Maria Del Rosario Nixon MD - 04/21/2025 EXAM DESCRIPTION: US KIDNEY COMPLETE REASON FOR STUDY: Concern for postobstructive BEBE TECHNIQUE: Ultrasound of the kidneys and urinary bladder was performedwith grayscale imaging. COMPARISON: CT abdomen and pelvis 02/16/2025 FINDINGS: RIGHT KIDNEY: The right kidney measures 11.8 cm in length. There is no hydronephrosis. There is normal cortical thickness and echogenicity. LEFT KIDNEY: The left kidney measures 11.5 cm in length. There is no hydronephrosis. There is normal cortical thickness and echogenicity.There is a 7.0 x 5.5 x 5.9 cm cyst containing thin internal septation in theleft kidney. URINARY BLADDER: Decompressed with Emery catheter OTHER: No other additional findings. IMPRESSION: Normal renal ultrasound. Left renal cyst containing thin internal septation. THIS IS AN ELECTRONICALLY VERIFIED FINAL REPORT 04/21/2025 11:09 AM - Electronically signed by Maria Del Rosario Zuniga M.D. FT: FT Report ID: [id number] Reading Location: [place] [address] us Janak Coy MD IMG US PROCEDURES Final Result * POCT glucose (04/21/2025 7:56 AM CDT) Glucose, POC 113 70 - 199 mg/dL Blood 04/21/2025 7:56 AM CDT 04/21/2025 7:56 AM CDT us Reggie Dominguez Jr., MD LAB POCT ORDERABLES - DEVICE Final Result [facility] ([place]) 1 [facility] [place] [address] * eGFR (04/21/2025 5:42 AM CDT) eGFR 65 >=60 mL/min/1. 73 m2 Comment: Interpretive Data Reference Interval Normal >/= 90 mL/min/1.73m2 Mildly decreased* 60 - 89 mL/min/1.73m2 Mildly to moderately decreased 45 - 59 mL/min/1.73m2 Moderately to severely decreased 30 - 44 mL/min/1.73m2 Severely decreased 15 - 29 mL/min/1.73m2 Kidney Failure < 15 mL/min/1.73m2 *Relative to young adult level Estimated glomerular filtration rate is determined by the 2020 CKD-EPI equation recommended by the National Kidney Foundation (A Unifying Approach to GFR Estimation: Recommendations of the NKF-ASK Task Force on Reassessing the Inclusion of Race in Diagnosing Kidney Disease, JASN 2020). The CKD-EPI equation should not be used for patients with unstable renal function and has not been validated in children and those over 70. Current interpretive data was last reviewed 2021. Blood 04/21/2025 5:42 AM CDT 04/21/2025 6:07 AM CDT us Janak Coy MD LAB BLOOD ORDERABLES Fi nal Result [facility] ([place]) 1 [facility] [place] [address] * (ABNORMAL) Differential, auto (04/21/2025 5:42 AM CDT) Neutrophil abs 5.90 1.50 - 6.50 K/cumm Imm gran abs 0.02 0.00 - 0.10 K/cumm [facility] ([place]) Lymphocyte abs 1.35 0.80 - 3.30 K/cumm [facility] ([place]) Monocyte abs 0.95(H) 0.20 - 0.80 K/cumm [facility] ([place]) Eosinophil abs 0.12 0.00 - 0.50 K/cumm [facility] ([place]) Basophil abs 0.02 0.00 - 0.10 K/cumm [facility] ([place]) Neutrophil pct 70.7 % [facility] ([place]) Comment: Interpretive Data Percent cell count reference ranges are not reported, since discordance with absolute values may lead to misinterpretation of CBC data. Current Interpretive Data was last revised on 2018. Imm gran pct 0.2 % [facility] ([place]) Comment: Interpretive Data Percent cell count reference ranges are not reported, since discordance with absolute values may lead to misinterpretation of CBC data. Current Interpretive Data was last revised on 2018. Lymphocyte pct 16.1 % [facility] ([place]) Comment: Interpretive Data Percent cell count reference ranges are not reported, since discordance with absolute values may lead to misinterpretation of CBC data. Current Interpretive Data was last revised on 2018. Monocyte pct 11.4 % [facility] ([place]) Comment: Interpretive Data Percent cell count reference ranges are not reported, since discordance with absolute values may lead to misinterpretation of CBC data. Current Interpretive Data was last revised on 2018. Eosinophil pct 1.4 % [facility] ([place]) Comment: Interpretive Data Percent cell count reference ranges are not reported, since discordance with absolute values may lead to misinterpretation of CBC data. Current Interpretive Data was last revised on 2018. Basophil pct 0.2 % [facility] ([place]) Comment: Interpretive Data Percent cell count reference ranges are not reported, since discordance with absolute values may lead to misinterpretation of CBC data. Current Interpretive Data was last revised on 2018. Blood 04/21/2025 5:42 AM CDT 04/21/2025 6:07 AM CDT us Janak Coy MD LAB BLOOD ORDERABLES Fi nal Result Performing Organization Address City/[facility]/ZIP Co de Phone Number [facility] ([place]) 1 [facility] [place] [address] * CBC with auto differential (04/21/2025 5:42 AM CDT) WBC 8.36 3.80 - 9.90 K/cumm Hgb 15.1 13.0 - 17.5 g/dL [facility] ([place]) Hct 43.3 38.9 - 50.3 % [facility] ([place]) Plt 184 150 - 400 K/cumm [facility] ([place]) MPV 9.5 9.1 - 12.3 fL [facility] ([place]) RBC 4.61 4.30 - 5.80 M/cumm [facility] ([place]) MCV 93.9 81.3 - 96.4 fL [facility] ([place]) MCH 32.8 27.1 - 33.3 pg [facility] ([place]) MCHC 34.9 32.3 - 35.7 g/dL [facility] ([place]) RDW CV 13.0 11.1 - 14.9 % [facility] ([place]) RDW SD 44.6 35.7 - 48.1 fL [facility] ([place]) NRBC abs 0.00 0.00 - 0.01 K/cumm [facility] ([place]) Blood 04/21/2025 5:42 AM CDT 04/21/2025 6:07 AM CDT us Janak Coy MD LAB BLOOD ORDERABLES Fi nal Result Performing Organization Address City/[facility]/ZIP Co de Phone Number [facility] ([place]) 1 [facility] [place] [address] * Magnesium (04/21/2025 5:42 AM CDT) Magnesium 2.0 1.4 - 2.5 mg/dL Blood 04/21/2025 5:42 AM CDT 04/21/2025 6:07 AM CDT us Janak Coy MD LAB BLOOD ORDERABLES Fi nal Result [facility] ([place]) 1 [facility] Department [place] [address] * (ABNORMAL) Comprehensive metabolic panel (04/21/2025 5:42 AM CDT) Sodium 144 135 - 145 mmol/L Potassium, pl 3.8 3.3 - 4.9 mmol/L [facility] ([place]) Chloride 108 97 - 110 mmol/L [facility] ([place]) CO2 21(L) 22 - 32 mmol/L [facility] ([place]) Anion gap 15 2 - 15 mmol/L [facility] ([place]) BUN 26(H) 6 - 25 mg/dL [facility] ([place]) Creatinine 1.12 0.80 - 1.30 mg/dL [facility] ([place]) Glucose 131 70 - 199 mg/dL [facility] ([place]) Comment: Interpretive Data Fasting glucose >/= 126 mg/dl is diagnostic for diabetes. Fasting is defined as no caloric intake for at least 8 hours. Fasting glucose between 100 mg/dl to 125 mg/dl is diagnostic of prediabetes. In a patient with classic symptoms of hyperglycemia or hyperglycemic crisis, a random glucose >/= 200 mg/dl is diagnostic for diabetes. In the absence of unequivocal hyperglycemia, results should be confirmed by repeat testing. The classification and Diagnosis of Diabetes Diabetes Care 2021; 46: S19-S40. Current interpretive data was last revised 2022. Calcium 8.8 8.5 - 10.3 mg/dL [facility] ([place]) Bilirubin, total 0.5 0.1 - 1.2 mg/dL [facility] ([place]) Protein, pl 6.3(L) 6.5 - 8.5 g/dL [facility] ([place]) Albumin 4.0 3.5 - 5.0 g/dL [facility] ([place]) Alk phos 69 40 - 130 Units/L [facility] ([place]) ALT 17 7 - 55 Units/L [facility] ([place]) AST 19 10 - 50 Units/L [facility] ([place]) Blood 04/21/2025 5:42 AM CDT 04/21/2025 6:07 AM CDT us Janak Coy MD LAB BLOOD ORDERABLES Fi nal Result CATHIE CREWS ([place]) 1 [facility] [place] [address] * Sepsis Lactate w/ Reflex (04/21/2025 1:48 AM CDT) Sepsis Lactate 1.3 0.7 - 2.0 mmol/L Blood 04/21/2025 1:48 AM CDT 04/21/2025 1:52 AM CDT us Henry Mason MD LAB BLOOD ORDERABLES Final Re sult CATHIE CREWS ([place]) 1 [facility] [place] [address] * Blood culture Blood (04/21/2025 1:48 AM CDT) Report Final Report: No growth Comment:Testing performed by : [facility], 1 [facility], [place]., [address] Blood 04/21/2025 1:48 AM CDT 04/21/2025 4:09 AM CDT Narrative CATHIE MARS ([place]) - 04/25/2025 7:01 AM CDT From a different site than #1. Collection->Peripheral 1. Blood cultures are incubated for 4 days on a continuously monitored blood culture system. The first report of a negative culture is issued within 24 hours of receipt of the specimen in the laboratory. 2. Positive culture results are reported as soon as they are detected. 3. The most important factor for detection of microbes in the setting of bloodstream infection is the volume of blood submitted for culture. Failure to collect an optimal blood volume can result in false negative blood cultures. 4. For pediatric patients, the recommended blood volume to collect follows a weight based strategy. See the electronic test catalog for collection instructions. 5. For positive blood cultures, a rapid molecular test may be performed for organism identification using the debra ePlex blood culture identification panel for gram positive (BCID-GP) and gram negative (BCID-GN) organisms. This nucleic acid amplification test detects microbial DNA in positive blood culture broth. This assay has been cleared by the [place] Food and Drug Administration and its performance characteristics have been verified by the [facility]. For questions about this culture, contact the Microbiology Laboratory at [phone]. Interpretive data was last revised on 24. Henry Mason MD LAB MICROBIOLOGY - GENERAL OR DERABLES Final Result CATHIE CREWS ([place]) 1 [facility] Department [place] [address] * Blood culture Blood (04/21/2025 1:48 AM CDT) Report Final Report: No growth Comment:Testing performed by : [facility], 1 [facility] [place]., [address] Blood 04/21/2025 1:48 AM CDT 04/21/2025 4:09 AM CDT Narrative CATHIE CREWS ([place]) - 04/25/2025 7:01 AM CDT Collection->Peripheral 1. Blood cultures are incubated for 4 days on a continuously monitored blood culture system. The first report of a negative culture is issued within 24 hours of receipt of the specimen in the laboratory. 2. Positive culture results are reported as soon as they are detected. 3. The most important factor for detection of microbes in the setting of bloodstream infection is the volume of blood submitted for culture. Failure to collect an optimal blood volume can result in false negative blood cultures. 4. For pediatric patients, the recommended blood volume to collect follows a weight based strategy. See the electronic test catalog for collection instructions. 5. For positive blood cultures, a rapid molecular test may be performed for organism identification using the debra ePlex blood culture identification panel for gram positive (BCID-GP) and gram negative (BCID-GN) organisms. This nucleic acid amplification test detects microbial DNA in positive blood culture broth. This assay has been cleared by the [place] Food and Drug Administration and its performance characteristics have been verified by the [facility]. For questions about this culture, contact the Microbiology Laboratory at [phone]. Interpretive data was last revised on 24. us Henry Mason MD LAB MICROBIOLOGY - GENERAL OR DERABLES Final Result [facility] ([place]) 1 [facility] Department [place] [address] * (ABNORMAL) Urinalysis reflex to microscopic and culture Urine (04/21/2025 12:00 AM CDT) Color, ur Yellow Yellow Clarity, ur Turbid(A) Clear [facility] ([place]) Specific gravity, ur 1.021 1.003 - 1.030 [facility] ([place]) pH, urine 5.5 [facility] ([place]) Comment: Interpretive Data U rine pH is affected by diet, medications, systemic acid-base disturbances, and renal tubular function. pH may affect urinary stone formation. For example, urine pH below 6.0 may help reduce the tendency for calcium phosphate stones and pH greater than 6.0 may reduce the tendency for uric acid stone formation. Source: [facility] [employer] Current Interpretive Data was last revised on 2017 Protein, ur ql 1+(A) Negative [facility] ([place]) Glucose, ur ql Negative Negative [facility] ([place]) Ketones, ur Negative Negative [facility] ([place]) Bilirubin, ur Negative Negative [facility] ([place]) Blood, ur 2+(A) Negative [facility] ([place]) Urobilinogen, ur <2.0 <2.0 mg/dL [facility] ([place]) Nitrite, ur Negative Negative [facility] ([place]) Leukocyte esterase, ur 1+(A) Negative [facility] ([place]) UA reflex comment Reflex to microscopic UA will be performed. CATHIE CREWS ([place]) Urine 04/21/2025 04/21/2025 12: 03 AM CDT Raymon Vazquez MD LAB MICROBIOLOGY - GENERAL O RDERABLES Final Result Performing Organization Address [facility] Co de Phone Number CATHIE CREWS ([place]) [address] [place] [address] [place] [address] * (ABNORMAL) Urinalysis, microscopic only (04/21/2025 12:00 AM CDT) WBC, ur 11-20(A) 0 - 5 /HPF RBC, ur 21-50(A) 0 - 2 /HPF CATHIE [facility] ([place]) Mucous, ur Present(A) [facility] ([place]) Culture Reflex Comment Reflex to urine culture will be performed. CATHIE CRE[facility] ([place]) Urine 04/21/2025 04/21/2025 12: 03 AM CDT Raymon Vazquez MD LAB URINE ORDERABLES Final R esult Performing Organization Address [facility] Co de Phone Number CATHIE CREWS ([place]) 1 [facility] [place] [address] * Urine culture Urine (04/21/2025 12:00 AM CDT) Report Final Report: Less than 100,000 colonies/mL (clinically insignificant growth based on current clinical standards) Comment:Testing performed by : [facility], 1 [facility], [place]., [address] Organism (CLINICALLY INSIGNIFICANT GROWTH [facility] ([place]) Urine 04/21/2025 04/21/2025 4:0 8 AM CDT Narrative [facility] ([place]) - 04/22/2025 6:22 AM CDT Urine culture reflexed based upon urinalysis results. Testing performed by [facility] ([phone]) Raymon Vazquez MD LAB MICROBIOLOGY - GENERAL O RDERABLES Final Result Performing Organization Address City/[facility]/ZIP Co de Phone Number CATHIE CREWS ([place]) 1 [facility] Department [place] [place] [address] * (ABNORMAL) eGFR (04/20/2025 11:41 PM CDT) eGFR 45(L) >=60 mL/min/1. 73 m2 Comment: Interpretive Data Reference Interval Normal >/= 90 mL/min/1.73m2 Mildly decreased* 60 - 89 mL/min/1.73m2 Mildly to moderately decreased 45 - 59 mL/min/1.73m2 Moderately to severely decreased 30 - 44 mL/min/1.73m2 Severely decreased 15 - 29 mL/min/1.73m2 Kidney Failure < 15 mL/min/1.73m2 *Relative to young adult level Estimated glomerular filtration rate is determined by the 2020 CKD-EPI equation recommended by the National Kidney Foundation (A Unifying Approach to GFR Estimation: Recommendations of the NKF-ASK Task Force on Reassessing the Inclusion of Race in Diagnosing Kidney Disease, JASN 2020). The CKD-EPI equation should not be used for patients with unstable renal function and has not been validated in children and those over 70. Current interpretive data was last reviewed 2021. Blood 04/20/2025 11:4 1 PM CDT 04/20/2025 11:45 PM CDT Raymon Vazquez MD LAB BLOOD ORDERABLES Final R esult [facility] ([place]) 1 [facility] Department [place] [address] * (ABNORMAL) Differential, auto (04/20/2025 11:41 PM CDT) Neutrophil abs 11.92(H) 1.50 - 6.50 K/cumm Imm gran abs 0.06 0.00 - 0.10 K/cumm [facility] ([facility]) Lymphocyte abs 0.90 0.80 - 3.30 K/cumm [facility] ([place]) Monocyte abs 1.14(H) 0.20 - 0.80 K/cumm [facility] ([place]) Eosinophil abs 0.05 0.00 - 0.50 K/cumm [facility] ([place]) Basophil abs 0.04 0.00 - 0.10 K/cumm [facility] ([place]) Neutrophil pct 84.4 % [facility] ([place]) Comment: Interpretive Data Percent cell count reference ranges are not reported, since discordance with absolute values may lead to misinterpretation of CBC data. Current Interpretive Data was last revised on 2018. Imm gran pct 0.4 % [facility] ([place]) Comment: Interpretive Data Percent cell count reference ranges are not reported, since discordance with absolute values may lead to misinterpretation of CBC data. Current Interpretive Data was last revised on 2018. Lymphocyte pct 6.4 % [facility] ([place]) Comment: Interpretive Data Percent cell count reference ranges are not reported, since discordance with absolute values may lead to misinterpretation of CBC data. Current Interpretive Data was last revised on 2018. Monocyte pct 8.1 % [facility] ([place]) Comment: Interpretive Data Percent cell count reference ranges are not reported, since discordance with absolute values may lead to misinterpretation of CBC data. Current Interpretive Data was last revised on 2018. Eosinophil pct 0.4 % [facility] ([place]) Comment: Interpretive Data Percent cell count reference ranges are not reported, since discordance with absolute values may lead to misinterpretation of CBC data. Current Interpretive Data was last revised on 2018. Basophil pct 0.3 % [facility] ([place]) Comment: Interpretive Data Percent cell count reference ranges are not reported, since discordance with absolute values may lead to misinterpretation of CBC data. Current Interpretive Data was last revised on 2018. Blood 04/20/2025 11:4 1 PM CDT 04/20/2025 11:45 PM CDT Raymon Vazquez MD LAB BLOOD ORDERABLES Final R esult [facility] ([place]) 1 [facility] [place] [address] * (ABNORMAL) CBC with auto differential (04/20/2025 11:41 PM CDT) WBC 14.11(H) 3.80 - 9.90 K/cumm Hgb 16.7 13.0 - 17.5 g/dL [facility] ([place]) Hct 49.3 38.9 - 50.3 % [facility] ([place]) Plt 225 150 - 400 K/cumm [facility] ([place]) MPV 9.3 9.1 - 12.3 fL [facility] ([place]) RBC 5.17 4.30 - 5.80 M/cumm [facility] ([place]) MCV 95.4 81.3 - 96.4 fL [facility] ([place]) MCH 32.3 27.1 - 33.3 pg [facility] ([place]) MCHC 33.9 32.3 - 35.7 g/dL [facility] ([place]) RDW CV 13.2 11.1 - 14.9 % [facility] ([place]) RDW SD 46.5 35.7 - 48.1 fL [facility] ([place]) NRBC abs 0.00 0.00 - 0.01 K/cumm [facility] Blood Venous blood specimen / Unknown 04/20/2025 11:41 PM CDT 04/20/2025 11:45 PM CDT Raymon Vazquez MD LAB BLOOD ORDERABLES Final R esult [facility] ([place]) 1 [facility] [place] [address] * Lipase (04/20/2025 11:41 PM CDT) Lipase 22 10 - 99 Units/L Blood Venous blood specimen / Unknown 04/20/2025 11:41 PM CDT 04/20/2025 11:45 PM CDT us Raymon Vazquez MD LAB BLOOD ORDERABLES Final R esult [facility] ([place]) 1 [facility] Department [place] [address] * (ABNORMAL) Comprehensive metabolic panel (04/20/2025 11:41 PM CDT) Sodium 144 135 - 145 mmol/L Potassium, pl 4.3 3.3 - 4.9 mmol/L [facility] ([place]) Chloride 107 97 - 110 mmol/L [facility] ([place]) CO2 22 22 - 32 mmol/L [facility] ([place]) Anion gap 15 2 - 15 mmol/L [facility] ([place]) BUN 28(H) 6 - 25 mg/dL [facility] ([place]) Creatinine 1.53(H) 0.80 - 1.30 mg/dL [facility] ([place]) Glucose 164 70 - 199 mg/dL [facility] ([place]) Comment: Interpretive Data Fasting glucose >/= 126 mg/dl is diagnostic for diabetes. Fasting is defined as no caloric intake for at least 8 hours. Fasting glucose between 100 mg/dl to 125 mg/dl is diagnostic of prediabetes. In a patient with classic symptoms of hyperglycemia or hyperglycemic crisis, a random glucose >/= 200 mg/dl is diagnostic for diabetes. In the absence of unequivocal hyperglycemia, results should be confirmed by repeat testing. The classification and Diagnosis of Diabetes Diabetes Care 2021; 46: S19-S40. Current interpretive data was last revised 2022. Calcium 9.7 8.5 - 10.3 mg/dL [facility] ([place]) Bilirubin, total 0.6 0.1 - 1.2 mg/dL [facility] ([place]) Protein, pl 7.8 6.5 - 8.5 g/dL [facility] ([place]) Albumin 4.8 3.5 - 5.0 g/dL [facility] ([place]) Alk phos 85 40 - 130 Units/L [facility] ([place]) ALT 21 7 - 55 Units/L [facility] ([place]) AST 23 10 - 50 Units/L [facility] ([place]) Blood 04/20/2025 11:4 1 PM CDT 04/20/2025 11:45 PM CDT us Raymon Vazquez MD LAB BLOOD ORDERABLES Final R esult [facility] ([place]) 1 [facility] [place] [address] * Diabetic Eye Exam (09/07/2024 7:38 AM CDT) Historical Provider HEALTH MAINTENANCE Final Result * Albumin Creatinine Ratio, Urine (08/17/2024 10:01 AM CDT) Albumin Ur <12.0 mg/L Comment: Interpretive Data No reference range established. Current interpretive data was last revised 2019. Testing performed by: [facility], [address] [place] [address], [id number] Creatinine Ur 146.6 mg/dL [facility] ([place]) Comment: Interpretive Data No reference range established. Current interpretive data was last revised 2019. Testing performed by: [facility], [address] [place] [address]., [address] Albumin Creatinine Ratio, Ur <8 1 - 29 mg/g [facility] ([place]) Comment:Testing performed by : [facility], [address] [place] [address]., [id number] Urine 08/17/2024 10:0 1 AM CDT 08/17/2024 12:33 PM CDT Elsy Miranda NP LAB URINE ORDERABLES Final Result [facility] ([place]) 1 [facility] [place] [address] from Last 3 Months or Most Recently Relevant to Health Maintenance Insurance [facility] PPO MEDICARE [id number] [employer] MEDICARE GOLD AETNA MEDICARE GOLD Advance Directives For more information, please contact: [phone] * Full Code (Latest Code Status on File) Date Activated Date Inactivated Comments 05/23/2025 10:48 PM 05/26/2025 3:31 PM * Full Code Date Activated Date Inactivated Comments 04/21/2025 3:41 AM 04/22/2025 4:38 PM * Full Code Date Activated Date Inactivated Comments 10/18/2019 10:31 PM 10/19/2019 9:20 PM * LIMITED - No CPR Date Activated Date Inactivated Comments 10/18/2019 9:40 AM 10/18/2019 10:31 PM Question Answer Comments Discussed with the following attending physician : Ander Care Teams Asphalt Heater Tender Relationship Specialty Start Date End Date Britton Swanson MD [address] [place] [address] PCP - General 07/16/07 Reggie Guzmán DO [address] [place] [address] [place] [address] Consulting Physician Cardiovascular Disease 10/19/19 Vladimir Murrell MD [address] [place] [address] [place] [address] Consulting Physician Urology 04/22/25 Bee Archuleta, DORCAS [address] [place] [address] [address] [place] [address] Bow Maker Gift Wrapping 05/29/25
--- OUTSIDE RECORDS SUMMARY | 2025-06-09 07:16 | XMS_ITS ---
Author Organization [facility] [address] [facility] lt Address [address] [place] [address] Care Team Providers Care Sales Receptionist Name Role Phone Britton Swanson MD Primary Care Provider [phone] Reggie Guzmán DO Unavailable [phone] Vladimir Murrell MD Unavailable [phone] Bee Archuleta RN Unavailable [phone] Active Problems Problem Noted Date Diagnosed Date Bilateral impacted cerumen 05/31/2025 Assessment & Plan (05/31/2025 10:27 AM CDT): Canals cleared. RTC for any recurrent concerns. Hospital discharge follow-up 05/31/2025 Assessment & Plan (05/31/2025 10:28 AM CDT): Elsy Schmitt NP have personally reviewed pertinent inpatient and/or [...] change with medicaiton. Controlled type 2 diabetes m nayeliitus without complication, without long-term current use of insulin 02/15/2025 Assessment & Plan (04/21/2025 5:12 PM CDT): Chronic hx. Last A1c on 08/17/24 was 5.5%. Well controlled on metformin 500 mg BID - Managed with SSI while inpatient Assessment & Plan (02/26/2025 11:22 AM CDT): Good glycemic control and continue son metformin XR and will montiro rpseonse. Elevated PSA 09/14/2024 Assessment & Plan (02/26/2025 [...] or 2. Coronary artery disease invo lving karuk coronary artery of karuk heart without angina pectoris 11/24/2019 Assessment & Plan (04/04/2021 9:25 AM CDT): Patient remains free of any symptoms to suggest angina or heart failure. He will continue with aggressive secondary risk factor modification. Need for influenza vaccination 10/27/2019 Assessment & Plan (10/27/2019 5:07 PM PAYROLL PROCESSOR): Flu vaccine given today. Discussed possible tenderness/redness at injection site. Need for vaccination 10/27/2019 Assessment & Plan (10/27/2019 5:07 PM PAYROLL PROCESSOR): Pneumovax 23 vaccine given today. Discussed possible tenderness/redness at injection site. BMI 23.0-23.9, adult 10/27/2019 Assessment & Plan (05/11/2025 8:41 AM CDT): Weight loss of 6 lbs in the past 2 months. Decreased appetite. Encouraged use of nail supplement/protein drinks. Stressed the need to push fluids. Assessment & Plan (04/26/2025 10:16 AM CDT): Weight appropriate for patient. Assessment & Plan (10/27/2019 5:04 PM PAYROLL PROCESSOR): Discussed healthy diet and importance of regular physical activity. BMI is acceptable for this patient. Nausea 10/27/2019 Assessment & Plan (10/27/2019 5:06 PM PAYROLL PROCESSOR): Poor intake. Discussed zofran and then 20-30 min later small intake. Discussed 5-6 smaller meals/grazing instead of 3 larger meals at least until appetite improved. Discussed bland diet (BRAT). Denies reflux, no epigastric pain. Denies dizzy/lightheaded. No SOB. Denies CP/arm/neck pain. Reviewed red flags. Old NH (myocardial infarction) 10/18/2019 Overview (10/18/2019): Added automatically from request for surgery [id number] Assessment & Plan (10/27/2019 5:08 PM PAYROLL PROCESSOR): appt w/Dr Guzmán 12/02/19. Reviewed red flags; what would warrant call/rtc. Discussed new medications. Discussed fatigue r/t new beta ivon. Reviewed diet/activity. 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 Red flags reviewed. Current Treatment and Therapy Plans No current plan information found. Past Treatment and Therapy Plans No past plan information found. Lifetime Dose Tracking * Chemical Lifetime Dose Automatic Entry Manual Entr y DLP 677 mGycm 677 mGycm 0 mGycm
--- OUTSIDE RECORDS SUMMARY | 2025-06-09 07:16 | XMS_ITS | Encounter Summary ---
Author Organization [facility] Healthcare Address [address] [place] [address] Care Team Providers Care Qa Specialist Name Role Phone Britton Swanson MD Primary Care Provider [phone] Reggie Guzmán DO Unavailable [phone] Vladimir Murrell MD Unavailable [phone] Bee Archuleta RN Unavailable [phone] Reason for Visit * Reason Onset Date Comments Medical Question/Miscellaneous 05/25/2025 Encounter Details Date Type Department Care Team (Late st Contact Info) Description 05/25/2025 Telephone [facility] [address] [place] [address] Britton Swanson MD [address] [place] [address] Medical Question/Miscellaneous Social History Tobacco Use Types Packs/Day Years Used Date Smoking Tobacco: Former Cigarettes 2 20 1 978 - 1997 Pipe Smokeless Tobacco: Never Comments:Smoking History Pac ks/day: 2 Packs Alcohol Use Standard Drinks/Week Comments No 0 (1 standard drink = 0.6 oz pur e alcohol) [facility] Utilities Answer Date Recorded In the past 12 months has [employer] electric, gas, oil, or water company threatened to shut off services in your home? No 05/29/2025 Social Connection and Isolation Panel [NHANES] A nswer Date Recorded In a typical week, how many times do you talk on the phone with family, friends, or neighbors? Once a week 05/29/20 25 How often do you get togethe r with friends or relatives? Once a week 05/29/2025 How often do you attend chur ch or quaker services? 1 to 4 times per year 05/29/2025 Do you belong to any clubs o r organizations such as islam groups, unions, fraternal or athletic groups, or [...] points, staff should administer the PHQ-9) 0 05/11/2025 [facility] - Occupational Stress Questionnaire Answer Date Recorded [...] any time in the past 12 m [facility], were you homeless or living in a halfway (including now)? No 05/29/2025 Personal Safety Answer Date Recorded Have you ever been in or are you currently in a harmful physical or emotional relationship or is someone making you feel afraid or unsafe? 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 and home health orders were placed by [facility]. Asking if Dr Swanson will follow for nursing, PT and OT orders. Pt has a fully catheter as well. Does message need to be routed? 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 As a result, this patient falls under our standard 'ring surveillance' screening protocol to ensure no transmission has occurred. This is in an abundance of caution and not reflective of an exposure event because of this no isolation is needed. Please contact your local Welding Specialist for additional information. 05/31/25 - Resolved due to patient being discharged 05/24/2025 05/24/2025 05/31/2025 8:09 AM C DT documented as of this encounter Care Teams Qa Specialist Relationship Specialty Start Date End Date Britton Swanson MD [address] [place] [address] PCP - General 07/16/07 Reggie Guzmán DO 2 [facility] [address] [place] [address] Consulting Physician Cardiovascular Disease 10/19/19 Vladimir Murrell MD [address] [place] [address] [address] [place] [address] Consulting Physician Urology 04/22/25 Bee Archuleta, RN [address] [place] [address] [address] [place] [address] Transportation Sales Consultant 05/29/25 documented as of this encounter
--- OUTSIDE RECORDS SUMMARY | 2025-06-09 07:16 | XMS_ITS | Encounter Summary ---
Author Organization [facility] Healthcare Address [address] [place] [address] Care Team Providers Care Insurance Sales Supervisor Name Role Phone Britton Swanson MD Primary Care Provider [phone] Reggie Guzmán DO Unavailable [phone] Vladimir Murrell MD Unavailable [phone] Bee Archuleta RN Unavailable [phone] Encounter Details Date Type Department Care Team (Late st Contact Info) Description 05/23/2025 Telephone [facility] [address] [place] [address] Britton Swanson MD [address] [place] [address] Social History Tobacco Use Types Packs/Day Years Used Date Smoking Tobacco: Former Cigarettes 2 20 1 978 - 1997 Pipe Smokeless Tobacco: Never Comments:Smoking History Pac ks/day: 2 Packs Alcohol Use Standard Drinks/Week Comments No 0 (1 standard drink = 0.6 oz pur e alcohol) [facility] Utilities Answer Date Recorded In the past 12 months has e electric, gas, oil, or water company threatened to shut off services in your home? No 05/25/2025 Social Connection and Isolat ion Panel [NHANES] Answer Date Recorded In a typical week, how many times do you talk on the phone with family, friends, or neighbors? More than three times a week 05/25/2025 How often do you get togethe r with friends or relatives? More than three times a week 05/25/2025 How often do you attend chur ch or adventism services? Never 05/25/2025 Do you belong to any clubs o r organizations such as rastafarian groups, unions, fraternal or athletic groups, or school groups? No 05/25/2025 How often do you attend meet ings of the clubs or organizations you belong to? Never 05/25/2025 Are you , , di vorced, , never , or living with a partner? 05/25/2025 AUDIT-C Answer Date Recorded Frequency of Alcohol [...] food, housing, medical care, and heating? Not hard at all 05/25/2025 PHQ-2 Answer Date Recorded PHQ-2 Total Score (If total score is 3 or more points, staff should administer the PHQ-9) 0 05/11/2025 [facility] - Occupational Stress [...] the money to buy more. Never true 05/25/20 25 Within the past 12 months, t he food you bought just didn't last and you didn't have money to get more. Never true 05/25/2025 PRAPARE - Transportation Answer Date Re corded In the past 12 months, has l ack of transportation kept you from medical appointments or from getting medications? No 01/2025 In the past 12 months, has l ack of transportation kept you from meetings, work, or from getting things needed for daily living? No 05/25/2025 Housing Stability Vital Sign Answer Pro e Recorded In the last 12 months, was t here a time when you were not able to pay the mortgage or rent on time? No 05/25/2025 In the past 12 months, how m any times have you moved where you were living? 0 05/25/2025 At any time in the past 12 m onths, were you homeless or living in a halfway (including now)? No 05/25/2025 Personal Safety Answer Date Recorded Have you ever been in or are you currently in a harmful physical or emotional relationship or is someone making you feel afraid or unsafe? 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 Please contact your local Distribution Specialist for additional information. 05/31/25 - Resolved due to patient being discharged 05/24/2025 05/24/2025 05/31/2025 8:09 AM C DT documented as of this encounter Care Teams Insurance Sales Supervisor Relationship Specialty Start Date End Date Britton Swanson MD [address] [place] [address] PCP - General 07/16/07 Reggie Guzmán DO [address] [facility] [address] [place] [address] Consulting Physician Cardiovascular Disease 10/19/19 Vladimir Murrell MD [address] [facility] [address] [place] [address] Consulting Physician Urology 04/22/25 Bee Archuleta, RN [address] [place] [address] [address] [place] [address] Dairy Tester 05/29/25 documented as of this encounter
--- OUTSIDE RECORDS SUMMARY | 2025-06-09 07:16 | XMS_ITS | Clinical Summary ---
Author Organization Unknown Care Team Providers Care Centerless Grinder Set Up Operator Name Role Phone PORSHA MAHER Unavailable Unavaila everette OLEARY RN, VERONICA Unavailable Unavailabl e ELOY PT, TANA Unavailable Unavailable CRISTEL COAL BRIQUETTE MACHINE OPERATOR, MARLENY Unavailable Unavailable Payers Payer Name Policy Type Policy Number Effective Date Expira [facility]ion Date [id number] Problems Condition Name Condition Details Condition Category Status Onset Date Resolution Date Last Treatment Date Treating Clinician Comments URINARY TRACT INFECTION, SITE NOT SPECIFIED Active 05-23 00:00: 00 Allergies, Adverse Reactions, Alerts Allergy Name Allergy Type Status Severity Reaction(s) Onset Date Inactive Date Treating Clinician Comments ROSUVASTATIN Propensity to adverse reactions Active 05-30 18:07: 31 Vital Signs Vital Name Observation Time Observation Value Commen ts Temperature 2025-06-08 11:55:00.000 98.2 [degF] Temperature 2025-06-06 13:06:00.000 98 [degF] Temperature 2025-06-06 12:44:00.000 98 [degF] Temperature 2025-06-02 11:23:00.000 97.1 [degF] Temperature 2025-05-30 18:29:00.000 98 [degF] BMI (%) 2025-05-30 10:04:26.000 23 kg/m2 Height 2025-05-30 10:04:18.000 71 [in_us] Pulse 2025-06-08 11:55:00.000 100 /min Pulse 2025-06-06 13:06:00.000 85 /min Pulse 2025-06-06 12:44:00.000 85 /min Pulse 2025-06-02 11:23:00.000 70 /min Pulse 2025-05-30 18:29:00.000 69 /min O2 Saturation (%) 2025-06-08 11:55:00.000 93 % O2 Saturation (%) 2025-06-06 13:06:00.000 98 % O2 Saturation (%) 2025-06-06 12:44:00.000 98 % O2 Saturation (%) 2025-06-02 11:23:00.000 95 % Respirations 2025-06-08 11:55:00.000 18 /min Respirations 2025-06-06 13:06:00.000 18 /min Respirations 2025-06-06 12:44:00.000 18 /min Respirations 2025-06-02 11:23:00.000 19 /min Respirations 2025-05-30 18:29:00.000 16 /min Weight (lbs) 2025-05-30 10:04:26.000 166 [lb_av] Systolic Blood Pressure 2025-06-08 11:55:00.000 102 mm [Hg] Systolic Blood Pressure 2025-06-06 13:06:00.000 128 mm [Hg] Systolic Blood Pressure 2025-06-06 12:44:00.000 128 mm [Hg] Systolic Blood Pressure 2025-06-02 11:23:00.000 124 mm [Hg] Systolic Blood Pressure 2025-05-30 18:29:00.000 116 mm [Hg] Diastolic Blood Pressure 2025-06-08 11:55:00.000 64 mm [Hg] Diastolic Blood Pressure 2025-06-06 13:06:00.000 78 mm [Hg] Diastolic Blood Pressure 2025-06-06 12:44:00.000 78 mm [Hg] Diastolic Blood Pressure 2025-06-02 11:23:00.000 78 mm [Hg] Diastolic Blood Pressure 2025-05-30 18:29:00.000 62 mm [Hg] Plan of Treatment Planned Activity Planned Date Details Comments Future Scheduled Test RN TO OBSE RVE, ASSESS, EVALUATE, AND DEVELOP AN INDIVIDUALIZED PLAN OF CARE. AGENCY MAY ACCEPT ORDERS FROM CONSULTING PHYSICIANS. RN TO OBSERVE AND ASSESS, TOBACCO SORTER/PERSONAL SHOPPER TO OBSERVE FOR RISK FOR FALLS AND INSTRUCT IN FALL PREVENTION, HOME SAFETY, MEDICATION MANAGEMENT, INFECTION PREVENTION, AND NUTRITION MANAGEMENT. RN/TOBACCO SORTER/PERSONAL SHOPPER NURSE MAY PERFORM O2 SATURATION LEVEL ON ADMISSION AND PRN FOR SOB FOR RN TO ASSESS/TOBACCO SORTER TO OBSERVE PATIENT, WITH NOTIFICATION TO THE PHYSICIAN IF SATURATION IS 90% IN THE ABSENCE OF MORE SPECIFIC PARAMETERS FROM THE PHYSICIAN. AGENCY MAY PERFORM A RESUMPTION OF CARE VISIT FOLLOWING ANY HOSPITAL ADMISSION. RN/TOBACCO SORTER/PERSONAL SHOPPER TO MONITOR CO-MORBID CONDITIONS LISTED ON THE PLAN OF CARE AND ANY NEW CONDITIONS THAT PRESENT THEMSELVES DURING THIS EPISODE TO IDENTIFY CHANGES AND INTERVENE TO MINIMIZE COMPLICATIONS. [code = RN TO OBSERVE, ASSESS, EVALUATE, AND DEVELOP AN INDIVIDUALIZED PLAN OF CARE. AGENCY MAY ACCEPT ORDERS FROM CONSULTING PHYSICIANS. RN TO OBSERVE AND ASSESS, TOBACCO SORTER/PERSONAL SHOPPER TO OBSERVE FOR RISK FOR FALLS AND INSTRUCT IN FALL PREVENTION, HOME SAFETY, MEDICATION MANAGEMENT, INFECTION PREVENTION, AND NUTRITION MANAGEMENT. RN/TOBACCO SORTER/PERSONAL SHOPPER NURSE MAY PERFORM O2 SATURATION LEVEL ON ADMISSION AND PRN FOR SOB FOR RN TO ASSESS/TOBACCO SORTER TO OBSERVE PATIENT, WITH NOTIFICATION TO THE PHYSICIAN IF SATURATION IS 90% IN THE ABSENCE OF MORE SPECIFIC PARAMETERS FROM THE PHYSICIAN. AGENCY MAY PERFORM A RESUMPTION OF CARE VISIT FOLLOWING ANY HOSPITAL ADMISSION. RN/TOBACCO SORTER/PERSONAL SHOPPER TO MONITOR CO-MORBID CONDITIONS LISTED ON THE PLAN OF CARE AND ANY NEW CONDITIONS THAT PRESENT THEMSELVES DURING THIS EPISODE TO IDENTIFY CHANGES AND INTERVENE TO MINIMIZE COMPLICATIONS.] Future Scheduled Test DIABETES M ONITORING RN/PERSONAL SHOPPER/TOBACCO SORTER TO MONITOR BLOOD SUGAR LOG FOR BLOOD SUGAR READINGS ARE NOT REQUIRED TO BE CHECKED. NURSE MAY PERFORM FINGER STICK BLOOD GLUCOSE NEEDED FOR SIGNS AND SYMPTOMS OF HYPO AND HYPERGLYCEMIA. RN/PERSONAL SHOPPER/TOBACCO SORTER TO MONITOR ADHERENCE OF PATIENT/CAREGIVER PERFORMING DIABETIC FOOT CARE AND MAY PERFORM DIABETIC FOOT CARE PRN. RN/PERSONAL SHOPPER/TOBACCO SORTER TO MONITOR FOR ADHERENCE TO DIABETIC SELF-CARE AND MANAGEMENT INCLUDING MEDICATIONS. [code = DIABETES MONITORING RN/PERSONAL SHOPPER/TOBACCO SORTER TO MONITOR BLOOD SUGAR LOG FOR BLOOD SUGAR READINGS ARE NOT REQUIRED TO BE CHECKED. NURSE MAY PERFORM FINGER STICK BLOOD GLUCOSE NEEDED FOR SIGNS AND SYMPTOMS OF HYPO AND HYPERGLYCEMIA. RN/PERSONAL SHOPPER/TOBACCO SORTER TO MONITOR ADHERENCE OF PATIENT/CAREGIVER PERFORMING DIABETIC FOOT CARE AND MAY PERFORM DIABETIC FOOT CARE PRN. RN/PERSONAL SHOPPER/TOBACCO SORTER TO MONITOR FOR ADHERENCE TO DIABETIC SELF-CARE AND MANAGEMENT INCLUDING MEDICATIONS.] Future Scheduled Test MEDICATION MANAGEMENT; RN/TOBACCO SORTER/PERSONAL SHOPPER TO REVIEW MEDICATIONS FOR INTERACTIONS, EFFECTIVENESS OF DRUG THERAPY, AND SIGNS/SYMPTOMS OF ADVERSE REACTIONS. MAY INSTRUCT AND REINFORCE MEDICATION TEACHING RELATED TO THE USE OF MEDICATIONS, DOSAGE, FREQUENCY, PURPOSE, SIDE EFFECTS, AND TO REPORT COMPLICATIONS. [code = MEDICATION MANAGEMENT; RN/TOBACCO SORTER/PERSONAL SHOPPER TO REVIEW MEDICATIONS FOR INTERACTIONS, EFFECTIVENESS OF DRUG THERAPY, AND SIGNS/SYMPTOMS OF ADVERSE REACTIONS. MAY INSTRUCT AND REINFORCE MEDICATION TEACHING RELATED TO THE USE OF MEDICATIONS, DOSAGE, FREQUENCY, PURPOSE, SIDE EFFECTS, AND TO REPORT COMPLICATIONS.] Future Scheduled Test ANTITHROMB OTIC MANAGEMENT; RN TO ASSESS AND TEACH, TOBACCO SORTER/PERSONAL SHOPPER TO OBSERVE/TEACH/MONITOR EFFECTIVENESS OF ANTITHROMBOTIC THERAPY. RN/TOBACCO SORTER/PERSONAL SHOPPER TO INSTRUCT ON SIGNS AND SYMPTOMS OF BLEEDING/ADVERSE REACTIONS TO REPORT TO PHYSICIAN. RN/TOBACCO SORTER/PERSONAL SHOPPER TO PERFORM PT/INR VIA VENIPUNCTURE OR COAGUCHECK EVERY NA. IF NO PT/INR ORDERED, PT/INR TO BE PERFORMED AT MD DISCRETION RN/TOBACCO SORTER/PERSONAL SHOPPER TO OBTAIN LAB RESULTS FROM LAB AND FOLLOW UP WITH THE PHYSICIAN WITH RESULTS TO VERIFY ANY MEDICATION CHANGES. [code = ANTITHROMBOTIC MANAGEMENT; RN TO ASSESS AND TEACH, TOBACCO SORTER/PERSONAL SHOPPER TO OBSERVE/TEACH/MONITOR EFFECTIVENESS OF ANTITHROMBOTIC THERAPY. RN/TOBACCO SORTER/PERSONAL SHOPPER TO INSTRUCT ON SIGNS AND SYMPTOMS OF BLEEDING/ADVERSE REACTIONS TO REPORT TO PHYSICIAN. RN/TOBACCO SORTER/PERSONAL SHOPPER TO PERFORM PT/INR VIA VENIPUNCTURE OR COAGUCHECK EVERY NA. IF NO PT/INR ORDERED, PT/INR TO BE PERFORMED AT MD DISCRETION RN/TOBACCO SORTER/PERSONAL SHOPPER TO OBTAIN LAB RESULTS FROM LAB AND FOLLOW UP WITH THE PHYSICIAN WITH RESULTS TO VERIFY ANY MEDICATION CHANGES.] Future Scheduled Test RISK FOR H OSPITALIZATION; RN TO ASSESS/TEACH, PERSONAL SHOPPER/TOBACCO SORTER TO OBSERVE/TEACH PATIENT/CAREGIVER ON RISK FOR HOSPITALIZATION/EMERGENCY ROOM VISITS, TEACH SIGNS AND SYMPTOMS THAT PUT PATIENT AT RISK, WHEN TO NOTIFY NURSE/PHYSICIAN OF COMPLICATIONS/DECLINE, AND WHEN TO CALL 911. [code = RISK FOR HOSPITALIZATION; RN TO ASSESS/TEACH, PERSONAL SHOPPER/TOBACCO SORTER TO OBSERVE/TEACH PATIENT/CAREGIVER ON RISK FOR HOSPITALIZATION/EMERGENCY ROOM VISITS, TEACH SIGNS AND SYMPTOMS THAT PUT PATIENT AT RISK, WHEN TO NOTIFY NURSE/PHYSICIAN OF COMPLICATIONS/DECLINE, AND WHEN TO CALL 911.] Future Scheduled Test CARDIOVASC ULAR SYSTEM; RN TO ASSESS/TEACH, TOBACCO SORTER/PERSONAL SHOPPER TO OBSERVE/TEACH RELATED TO ALTERED CARDIOVASCULAR STATUS TO MINIMIZE COMPLICATIONS AND REDUCE HOSPITALIZATION. [code = CARDIOVASCULAR SYSTEM; RN TO ASSESS/TEACH, TOBACCO SORTER/PERSONAL SHOPPER TO OBSERVE/TEACH RELATED TO ALTERED CARDIOVASCULAR STATUS TO MINIMIZE COMPLICATIONS AND REDUCE HOSPITALIZATION.] Future Scheduled Test HYPERTENSI ON MANAGEMENT; RN TO ASSESS AND TEACH, TOBACCO SORTER/PERSONAL SHOPPER TO OBSERVE AND TEACH WARNING SIGNS AND SYMPTOMS TO AVOID HOSPITALIZATION. [code = HYPERTENSION MANAGEMENT; RN TO ASSESS AND TEACH, TOBACCO SORTER/PERSONAL SHOPPER TO OBSERVE AND TEACH WARNING SIGNS AND SYMPTOMS TO AVOID HOSPITALIZATION.] Future Scheduled Test ANGINA MAN AGEMENT; RN TO ASSESS AND TEACH, TOBACCO SORTER/PERSONAL SHOPPER TO OBSERVE AND TEACH WARNING SIGNS AND SYMPTOMS TO AVOID HOSPITALIZATION. [code = ANGINA MANAGEMENT; RN TO ASSESS AND TEACH, TOBACCO SORTER/PERSONAL SHOPPER TO OBSERVE AND TEACH WARNING SIGNS AND SYMPTOMS TO AVOID HOSPITALIZATION.] Future Scheduled Test DIABETES M ANAGEMENT; RN TO ASSESS AND TEACH, PERSONAL SHOPPER/TOBACCO SORTER TO OBSERVE AND TEACH INSTRUCTIONS OF DIABETIC CARE TO INCLUDE: DIET, SKIN CARE, SIGNS AND SYMPTOMS OF HYPO/HYPERGLYCEMIA, PROPER ADMINISTRATION OF DIABETIC MEDICATION. RN/PERSONAL SHOPPER/TOBACCO SORTER TO INSTRUCT ON DIABETIC FOOT CARE AND MONITOR FOR SKIN LESIONS ON LOWER EXTREMITIES. BLOOD GLUCOSE TESTING NOT ORDERED RN TO ASSESS AND TEACH, PERSONAL SHOPPER/TOBACCO SORTER TO OBSERVE AND TEACH PATIENT/CAREGIVER ABILITY TO PERFORM AND RECORD BLOOD GLUCOSE TESTING ORDERED AND TO REPORT ABNORMAL FINDINGS TO PHYSICIAN. RN/PERSONAL SHOPPER/TOBACCO SORTER MAY PERFORM BLOOD GLUCOSE TEST NEEDED. RN/PERSONAL SHOPPER/TOBACCO SORTER TO INSTRUCT PATIENT ON IMPORTANCE OF HGBA1C MONITORING, KIDNEY FUNCTION TEST, EYE AND FOOT EXAMS. [code = DIABETES MANAGEMENT; RN TO ASSESS AND TEACH, PERSONAL SHOPPER/TOBACCO SORTER TO OBSERVE AND TEACH INSTRUCTIONS OF DIABETIC CARE TO INCLUDE: DIET, SKIN CARE, SIGNS AND SYMPTOMS OF HYPO/HYPERGLYCEMIA, PROPER ADMINISTRATION OF DIABETIC MEDICATION. RN/PERSONAL SHOPPER/TOBACCO SORTER TO INSTRUCT ON DIABETIC FOOT CARE AND MONITOR FOR SKIN LESIONS ON LOWER EXTREMITIES. BLOOD GLUCOSE TESTING NOT ORDERED RN TO ASSESS AND TEACH, PERSONAL SHOPPER/TOBACCO SORTER TO OBSERVE AND TEACH PATIENT/CAREGIVER ABILITY TO PERFORM AND RECORD BLOOD GLUCOSE TESTING ORDERED AND TO REPORT ABNORMAL FINDINGS TO PHYSICIAN. RN/PERSONAL SHOPPER/TOBACCO SORTER MAY PERFORM BLOOD GLUCOSE TEST NEEDED. RN/PERSONAL SHOPPER/TOBACCO SORTER TO INSTRUCT PATIENT ON IMPORTANCE OF HGBA1C MONITORING, KIDNEY FUNCTION TEST, EYE AND FOOT EXAMS.] Future Scheduled Test GENITOURIN JACKI MANAGEMENT; RN TO ASSESS AND TEACH, TOBACCO SORTER/PERSONAL SHOPPER TO OBSERVE AND TEACH RELATED TO ALTERED GENITOURINARY STATUS TO MINIMIZE COMPLICATIONS AND REDUCE HOSPITALIZATION. [code = GENITOURINARY MANAGEMENT; RN TO ASSESS AND TEACH, TOBACCO SORTER/PERSONAL SHOPPER TO OBSERVE AND TEACH RELATED TO ALTERED GENITOURINARY STATUS TO MINIMIZE COMPLICATIONS AND REDUCE HOSPITALIZATION.] Future Scheduled Test URINARY CU LTURE AND SENSITIVITY PROTOCOL UP TO 2 PRN RN/TOBACCO SORTER/PERSONAL SHOPPER VISITS MAY BE PERFORMED FOR S/S OF UTI. RN TO ASSESS, TOBACCO SORTER/PERSONAL SHOPPER TO OBSERVE INITIATION OF UTI PROTOCOL. RN/PERSONAL SHOPPER/TOBACCO SORTER TO INSTRUCT PATIENT AND/OR CAREGIVER ON S/S OF UTI TO REPORT TO RN/TOBACCO SORTER/PERSONAL SHOPPER IF NEW OR WORSENING SYMPTOMS. DRINK PLENTY OF WATER THROUGHOUT THE DAY TO MAINTAIN HYDRATION (UNLESS CONTRAINDICATED.) URINATE WHEN THE URGE IS FELT, DO NOT WAIT. WASH GENITALS DAILY. WIPE FROM FRONT TO BACK AFTER HAVING A BOWEL MOVEMENT. RN/PERSONAL SHOPPER/TOBACCO SORTER TO OBTAIN UA WITH C/S VIA CLEAN CATCH URINE AND IF UNABLE TO OBTAIN MAY PERFORM AN IN AND OUT CATH. IF PATIENT HAS INDWELLING CATHETER MAY OBTAIN FROM SAMPLING PORT. NOTIFY PROVIDER OF RESULTS AND OBTAIN FURTHER ORDERS. [code = URINARY CULTURE AND SENSITIVITY PROTOCOL UP TO 2 PRN RN/TOBACCO SORTER/PERSONAL SHOPPER VISITS MAY BE PERFORMED FOR S/S OF UTI. RN TO ASSESS, TOBACCO SORTER/PERSONAL SHOPPER TO OBSERVE INITIATION OF UTI PROTOCOL. RN/PERSONAL SHOPPER/TOBACCO SORTER TO INSTRUCT PATIENT AND/OR CAREGIVER ON S/S OF UTI TO REPORT TO RN/TOBACCO SORTER/PERSONAL SHOPPER IF NEW OR WORSENING SYMPTOMS. DRINK PLENTY OF WATER THROUGHOUT THE DAY TO MAINTAIN HYDRATION (UNLESS CONTRAINDICATED.) URINATE WHEN THE URGE IS FELT, DO NOT WAIT. WASH GENITALS DAILY. WIPE FROM FRONT TO BACK AFTER HAVING A BOWEL MOVEMENT. RN/PERSONAL SHOPPER/TOBACCO SORTER TO OBTAIN UA WITH C/S VIA CLEAN CATCH URINE AND IF UNABLE TO OBTAIN MAY PERFORM AN IN AND OUT CATH. IF PATIENT HAS INDWELLING CATHETER MAY OBTAIN FROM SAMPLING PORT. NOTIFY PROVIDER OF RESULTS AND OBTAIN FURTHER ORDERS.] Future Scheduled Test URINARY MO LECULAR TESTING PROTOCOL UP TO 2 PRN RN/TOBACCO SORTER/PERSONAL SHOPPER VISITS MAY BE PERFORMED FOR S/S OF UTI. RN TO ASSESS, TOBACCO SORTER/PERSONAL SHOPPER TO OBSERVE INITIATION OF UTI PROTOCOL. RN/PERSONAL SHOPPER/TOBACCO SORTER TO INSTRUCT PATIENT AND/OR CAREGIVER ON S/S OF UTI TO REPORT TO RN/PERSONAL SHOPPER/TOBACCO SORTER IF NEW OR WORSENING SYMPTOMS. DRINK PLENTY OF WATER THROUGHOUT THE DAY TO MAINTAIN HYDRATION (UNLESS CONTRAINDICATED.) URINATE WHEN THE URGE IS FELT, DO NOT WAIT. WASH GENITALS DAILY. WIPE FROM FRONT TO BACK AFTER HAVING A BOWEL MOVEMENT. RN/PERSONAL SHOPPER/TOBACCO SORTER TO OBTAIN MOLECULAR URINE TESTING BY OPTION 1 OR OPTION 2 (OPTION 1) RN/PERSONAL SHOPPER/TOBACCO SORTER TO OBTAIN U/A WITH REFLEX TO UTI PANEL (MOLECULAR) VIA CLEAN CATCH URINE AND IF UNABLE TO OBTAIN MAY PERFORM AN IN AND OUT CATH. IF PATIENT HAS INDWELLING CATHETER MAY OBTAIN FROM SAMPLING PORT. (OPTION 2) RN/PERSONAL SHOPPER/TOBACCO SORTER TO OBTAIN UTI PANEL (MOLECULAR) VIA SWAB COLLECTION METHOD FROM ADULT BRIEF/DIAPER OR PAD IF PATIENT IS INCONTINENT. NOTIFY PROVIDER OF RESULTS AND OBTAIN FURTHER ORDERS. [code = URINARY MOLECULAR TESTING PROTOCOL UP TO 2 PRN RN/TOBACCO SORTER/PERSONAL SHOPPER VISITS MAY BE PERFORMED FOR S/S OF UTI. RN TO ASSESS, TOBACCO SORTER/PERSONAL SHOPPER TO OBSERVE INITIATION OF UTI PROTOCOL. RN/PERSONAL SHOPPER/TOBACCO SORTER TO INSTRUCT PATIENT AND/OR CAREGIVER ON S/S OF UTI TO REPORT TO RN/PERSONAL SHOPPER/TOBACCO SORTER IF NEW OR WORSENING SYMPTOMS. DRINK PLENTY OF WATER THROUGHOUT THE DAY TO MAINTAIN HYDRATION (UNLESS CONTRAINDICATED.) URINATE WHEN THE URGE IS FELT, DO NOT WAIT. WASH GENITALS DAILY. WIPE FROM FRONT TO BACK AFTER HAVING A BOWEL MOVEMENT. RN/PERSONAL SHOPPER/TOBACCO SORTER TO OBTAIN MOLECULAR URINE TESTING BY OPTION 1 OR OPTION 2 (OPTION 1) RN/PERSONAL SHOPPER/TOBACCO SORTER TO OBTAIN U/A WITH REFLEX TO UTI PANEL (MOLECULAR) VIA CLEAN CATCH URINE AND IF UNABLE TO OBTAIN MAY PERFORM AN IN AND OUT CATH. IF PATIENT HAS INDWELLING CATHETER MAY OBTAIN FROM SAMPLING PORT. (OPTION 2) RN/PERSONAL SHOPPER/TOBACCO SORTER TO OBTAIN UTI PANEL (MOLECULAR) VIA SWAB COLLECTION METHOD FROM ADULT BRIEF/DIAPER OR PAD IF PATIENT IS INCONTINENT. NOTIFY PROVIDER OF RESULTS AND OBTAIN FURTHER ORDERS.] Future Scheduled Test URINARY TR ACT INFECTION MANAGEMENT; RN/PERSONAL SHOPPER/TOBACCO SORTER TO PROVIDE SKILLED TEACHING AND SELF- CARE MANAGEMENT RELATED TO UTI TO MINIMIZE COMPLICATIONS AND REDUCE THE RISK OF HOSPITALIZATION. [code = URINARY TRACT INFECTION MANAGEMENT; RN/PERSONAL SHOPPER/TOBACCO SORTER TO PROVIDE SKILLED TEACHING AND SELF- CARE MANAGEMENT RELATED TO UTI TO MINIMIZE COMPLICATIONS AND REDUCE THE RISK OF HOSPITALIZATION.] Future Scheduled Test INDWELLING URINARY CATHETER MANAGEMENT; RN/TOBACCO SORTER/PERSONAL SHOPPER TO INSTRUCT PATIENT / CAREGIVER ON INDWELLING URINARY CATHETER MANAGEMENT INCLUDING CARE OF CATHETER, SIGN AND SYMPTOMS OF COMPLICATIONS, PERINEAL CARE, TUBE AND BAG PLACEMENT, PREVENTION OF INFECTION AND SKIN BREAKDOWN. [code = INDWELLING URINARY CATHETER MANAGEMENT; RN/TOBACCO SORTER/PERSONAL SHOPPER TO INSTRUCT PATIENT / CAREGIVER ON INDWELLING URINARY CATHETER MANAGEMENT INCLUDING CARE OF CATHETER, SIGN AND SYMPTOMS OF COMPLICATIONS, PERINEAL CARE, TUBE AND BAG PLACEMENT, PREVENTION OF INFECTION AND SKIN BREAKDOWN.] Future Scheduled Test FALL REDUC TION MANAGEMENT; RN TO ASSESS AND OBSERVE, TOBACCO SORTER/PERSONAL SHOPPER TO OBSERVE FALL RISK FACTORS AND EDUCATE PATIENT/CAREGIVER ON STRATEGIES TO MINIMIZE THE RISK OF FALLING. [code = FALL REDUCTION MANAGEMENT; RN TO ASSESS AND OBSERVE, TOBACCO SORTER/PERSONAL SHOPPER TO OBSERVE FALL RISK FACTORS AND EDUCATE PATIENT/CAREGIVER ON STRATEGIES TO MINIMIZE THE RISK OF FALLING.] Future Scheduled Test PHYSICAL T HERAPIST TO EVALUATE FOR STRENGTHENING [code = PHYSICAL THERAPIST TO EVALUATE FOR STRENGTHENING ] Future Scheduled Test PRN VISITS ; NUMBER OF RN/TOBACCO SORTER/PERSONAL SHOPPER VISITS: 1 RN/TOBACCO SORTER/PERSONAL SHOPPER TO PERFORM: CATHETER CARES FOR THE FOLLOWING REASONS: MALFUNCTION OF CATHETER, SS INFECTION [code = PRN VISITS; NUMBER OF RN/TOBACCO SORTER/PERSONAL SHOPPER VISITS: 1 RN/TOBACCO SORTER/PERSONAL SHOPPER TO PERFORM: CATHETER CARES FOR THE FOLLOWING REASONS: MALFUNCTION OF CATHETER, SS INFECTION] Future Scheduled Test AGENCY MAY PERFORM A RESUMPTION OF CARE VISIT FOLLOWING ANY HOSPITAL ADMISSION. PT TO EVALUATE, OBSERVE / ASSESS, AND MONITOR, COAL BRIQUETTE MACHINE OPERATOR TO OBSERVE AND MONITOR, PROVIDE SKILLED THERAPEUTIC INTERVENTION, ACTIVITY, EDUCATION, AND TRAINING TO ADDRESS; PT/COAL BRIQUETTE MACHINE OPERATOR TO PROVIDE GAIT TRAINING FOR IMPROVED MOBILITY AND /OR TO NORMALIZE GAIT PATTERN NEUROMUSCULAR RE-EDUCATION / BALANCE / POSTURAL CONTROL (PT) THERAPEUTIC EXERCISES AND ESTABLISHING A HOME EXERCISE PROGRAM (PT/COAL BRIQUETTE MACHINE OPERATOR) PT/COAL BRIQUETTE MACHINE OPERATOR TO PROVIDE STAIR TRAINING SIT TO/FROM STAND TRANSFERS (PT/COAL BRIQUETTE MACHINE OPERATOR) PT / COAL BRIQUETTE MACHINE OPERATOR TO MONITOR AND EDUCATE ON OXYGEN SATURATION DURING ADLS/IADLS, NOTIFY PHYSICIAN AND/OR THE RN CLINICAL BUS PERSON FOR PHYSICIAN NOTIFICATION AND IF O2 SATS BELOW PHYSICIAN ORDERED PARAMETERS AFTER 10 MIN OF REST PT / COAL BRIQUETTE MACHINE OPERATOR MAY EDUCATE ON PAIN MANAGEMENT CLINICALLY INDICATED, INCLUDING NON-PHARMACOLOGICAL PAIN REDUCTION TECHNIQUES. PT / COAL BRIQUETTE MACHINE OPERATOR TO MONITOR FOR HYPO/HYPERGLYCEMIA AND CONDUCT ROUTINE FOOT INSPECTIONS. RECORD PATIENT REPORTED BLOOD SUGAR LEVELS AND NOTIFY PHYSICIAN AND/OR THE RN CLINICAL BUS PERSON FOR PHYSICIAN NOTIFICATION IF BLOOD SUGAR LEVELS ARE OUTSIDE ORDERED PARAMETERS. TEACH PATIENT/CAREGIVER ON DAILY FOOT INSPECTIONS PT / COAL BRIQUETTE MACHINE OPERATOR TO MONITOR FOR SIGNS AND SYMPTOMS OF UTI AND EDUCATE PATIENT/CAREGIVER TO MINIMIZE RISK OF DEVELOPING A UTI. PT / COAL BRIQUETTE MACHINE OPERATOR TO INSTRUCT PATIENT/CAREGIVER ON RISK FOR HOSPITALIZATION/EMERGENCY ROOM VISITS, TEACH SIGNS AND SYMPTOMS THAT PUT PATIENT AT RISK, WHEN TO NOTIFY NURSE/PHYSICIAN OF COMPLICATIONS/DECLINE, AND WHEN TO CALL 911. PT/COAL BRIQUETTE MACHINE OPERATOR TO IDENTIFY FALL RISK FACTORS; EDUCATE THE PATIENT/CAREGIVER ON WAYS TO REDUCE FALL RISK FACTORS AND ESTABLISH HOME EXERCISE PROGRAM TO MINIMIZE FALL RISK. MAY TEACH THE PATIENT FLOOR RECOVERY WHEN CLINICALLY APPROPRIATE PT / COAL BRIQUETTE MACHINE OPERATOR TO EDUCATE ON DIABETES SELF- MANAGEMENT [code = AGENCY MAY PERFORM A RESUMPTION OF CARE VISIT FOLLOWING ANY HOSPITAL ADMISSION. PT TO EVALUATE, OBSERVE / ASSESS, AND MONITOR, COAL BRIQUETTE MACHINE OPERATOR TO OBSERVE AND MONITOR, PROVIDE SKILLED THERAPEUTIC INTERVENTION, ACTIVITY, EDUCATION, AND TRAINING TO ADDRESS; PT/COAL BRIQUETTE MACHINE OPERATOR TO PROVIDE GAIT TRAINING FOR IMPROVED MOBILITY AND /OR TO NORMALIZE GAIT PATTERN NEUROMUSCULAR RE-EDUCATION / BALANCE / POSTURAL CONTROL (PT) THERAPEUTIC EXERCISES AND ESTABLISHING A HOME EXERCISE PROGRAM (PT/COAL BRIQUETTE MACHINE OPERATOR) PT/COAL BRIQUETTE MACHINE OPERATOR TO PROVIDE STAIR TRAINING SIT TO/FROM STAND TRANSFERS (PT/COAL BRIQUETTE MACHINE OPERATOR) PT / COAL BRIQUETTE MACHINE OPERATOR TO MONITOR AND EDUCATE ON OXYGEN SATURATION DURING ADLS/IADLS, NOTIFY PHYSICIAN AND/OR THE RN CLINICAL BUS PERSON FOR PHYSICIAN NOTIFICATION AND IF O2 SATS BELOW PHYSICIAN ORDERED PARAMETERS AFTER 10 MIN OF REST PT / COAL BRIQUETTE MACHINE OPERATOR MAY EDUCATE ON PAIN MANAGEMENT CLINICALLY INDICATED, INCLUDING NON-PHARMACOLOGICAL PAIN REDUCTION TECHNIQUES. PT / COAL BRIQUETTE MACHINE OPERATOR TO MONITOR FOR HYPO/HYPERGLYCEMIA AND CONDUCT ROUTINE FOOT INSPECTIONS. RECORD PATIENT REPORTED BLOOD SUGAR LEVELS AND NOTIFY PHYSICIAN AND/OR THE RN CLINICAL BUS PERSON FOR PHYSICIAN NOTIFICATION IF BLOOD SUGAR LEVELS ARE OUTSIDE ORDERED PARAMETERS. TEACH PATIENT/CAREGIVER ON DAILY FOOT INSPECTIONS PT / COAL BRIQUETTE MACHINE OPERATOR TO MONITOR FOR SIGNS AND SYMPTOMS OF UTI AND EDUCATE PATIENT/CAREGIVER TO MINIMIZE RISK OF DEVELOPING A UTI. PT / COAL BRIQUETTE MACHINE OPERATOR TO INSTRUCT PATIENT/CAREGIVER ON RISK FOR HOSPITALIZATION/EMERGENCY ROOM VISITS, TEACH SIGNS AND SYMPTOMS THAT PUT PATIENT AT RISK, WHEN TO NOTIFY NURSE/PHYSICIAN OF COMPLICATIONS/DECLINE, AND WHEN TO CALL 911. PT/COAL BRIQUETTE MACHINE OPERATOR TO IDENTIFY FALL RISK FACTORS; EDUCATE THE PATIENT/CAREGIVER ON WAYS TO REDUCE FALL RISK FACTORS AND ESTABLISH HOME EXERCISE PROGRAM TO MINIMIZE FALL RISK. MAY TEACH THE PATIENT FLOOR RECOVERY WHEN CLINICALLY APPROPRIATE PT / COAL BRIQUETTE MACHINE OPERATOR TO EDUCATE ON DIABETES SELF- MANAGEMENT] Goal Patient Goal - R ETYRN TO BASELINE [id number], KNOWLEDGE OF MEDICATIONS Goal Provider Goal - A PLAN OF CARE WILL BE ESTABLISHED THAT MEETS THE PATIENTS NEEDS. PATIENT WILL DEMONSTRATE OXYGEN SATURATION WITHIN NORMAL LIMITS OR PATIENTS OPTIMAL LEVEL ESTABLISHED BY THE PHYSICIAN THROUGHOUT CARE. CHANGES TO CO-MORBID CONDITIONS AND ANY NEW CONDITIONS WILL BE IDENTIFIED AND REPORTED TO THE PHYSICIAN. Goal Provider Goal - BLOOD SUGARS WILL REMAIN WITHIN ESTABLISHED RANGES AND DIABETES CONTROLLED THROUGHOUT EPISODE. Goal Provider Goal - PATIENT/CAREGIVER TO VERBALIZE, AND CONSISTENTLY DEMONSTRATE EFFECTIVE, SAFE MANAGEMENT OF MEDICATION INCLUDING KNOWLEDGE OF EFFECTIVENESS, POTENTIAL SIDE EFFECTS AND DRUG REACTIONS AND WHEN TO CONTACT THE APPROPRIATE CARE PROVIDER. PATIENT/CAREGIVER WILL BE ABLE TO VERBALIZE UNDERSTANDING OF MEDICATION REGIMEN AND ACCURATELY TAKE MEDICATIONS PRESCRIBED WITHOUT ADVERSE EFFECTS BY END OF CERT PERIOD Goal Provider Goal - PATIENT / CAREGIVER WILL PROMPTLY REPORT SIGNS AND SYMPTOMS OF BLEEDING OR ADVERSE REACTIONS TO THE PHYSICIAN. PATIENT/CAREGIVER WILL VERBALIZE UNDERSTANDING OF ANTITHROMBOTIC THERAPY MANAGEMENT BY END OF EPISODE. Goal Provider Goal - PATIENT/CAREGIVER WILL VERBALIZE UNDERSTANDING OF SIGNS AND SYMPTOMS THAT PUT THE PATIENT AT RISK FOR HOSPITALIZATION /EMERGENCY ROOM VISITS, WHEN TO NOTIFY NURSE/PHYSICIAN OF COMPLICATIONS/DECLINE AND WHEN TO CALL 911. Goal Provider Goal - PATIENT / CAREGIVER WILL VERBALIZE/DEMONSTRATE UNDERSTANDING OF MEASURES TO MANAGE ALTERED CARDIOVASCULAR STATUS BY ENDOFCERTPERIOD. Goal Provider Goal - PATIENT / CAREGIVER WILL VERBALIZE/DEMONSTRATE AN ABILITY TO ADHERE TO SELF-MANAGEMENT OF HTN TO MINIMIZE COMPLICATIONS AND AVOID HOSPITALIZATION BY END OF EPISODE. Goal Provider Goal - PATIENT / CAREGIVER WILL VERBALIZE/DEMONSTRATE AN ABILITY TO ADHERE TO SELF-MANAGEMENT OF ANGINA TO MINIMIZE COMPLICATIONS AND AVOID HOSPITALIZATION BY END OF EPISODE. Goal Provider Goal - PATIENT / CAREGIVER WILL VERBALIZE / DEMONSTRATE AN ABILITY TO ADHERE TO SELF-MANAGEMENT OF DIABETES MANAGEMENT BY ENDOFCERTPERIOD. Goal Provider Goal - PATIENT / CAREGIVER WILL VERBALIZE/DEMONSTRATE UNDERSTANDING OF MEASURES TO MANAGE ALTERED GENITOURINARY STATUS BY END OF EPISODE. Goal Provider Goal - PATIENT WILL DEMONSTRATE IMPROVEMENT IN S/S OF UTI TO AVOID HOSPITALIZATION. Goal Provider Goal - PATIENT WILL DEMONSTRATE IMPROVEMENT IN S/S OF UTI TO AVOID HOSPITALIZATION. Goal Provider Goal - PATIENT/CAREGIVER WILL VERBALIZE/DEMONSTRATE UNDERSTANDING OF CARE AND MANAGEMENT OF URINARY TRACT INFECTION BY THE END OF CERT PERIOD Goal Provider Goal - PATIENT/CAREGIVER WILL VERBALIZE/DEMONSTRATE UNDERSTANDING OF CARE AND MANAGEMENT OF INDWELLING CATHETER BY END OF CERT PERIOD Goal Provider Goal - PATIENT/CAREGIVER WILL VERBALIZE/DEMONSTRATE UNDERSTANDING OF FALL RISK FACTORS AND IMPLEMENT STRATEGIES TO MINIMIZE FALL RISK. PATIENT/CAREGIVER WILL VERBALIZE/DEMONSTRATE AN ABILITY TO ADHERE TO FALL REDUCTION SELF-MANAGEMENT AND LIFE-STYLE CHANGES BY END OF CERT PERIOD Goal Provider Goal - Goal Provider Goal - Goal Provider Goal - PT LTG: PATIENT WILL DEMONSTRATE REDUCED GAIT DEVIATIONS TO REDUCE THE RISK FOR FALLING AND MINIMIZE STRAIN ON KNEES/HIPS AND BACK EVIDENCED BY IMPROVED STEP LENGTH AND POSTURE USING QUAD CANE TO WALK 250 FT OF LEVEL SURFACE INDEPENDENTLY FROM SBA IN ORDER TO ACCESS MD OFFICE WITHIN 4 WEEKS. PT LTG: PATIENT WILL DEMONSTRATE REDUCED FALL RISK EVIDENCED BY TINETTI TEST IMPROVING FROM 13 TO 23 WITHIN 4 WEEKS. PT LTG: PATIENT WILL DEMONSTRATE IMPROVED POSTURAL CONTROL AND SENSORY INTEGRATION OF THEIR BALANCE SYSTEMS EVIDENCED BY MCTSIB IMPROVING FROM 0 TO 2 WITHIN 4 WEEKS. PT STG: PATIENT WILL SAFELY PERFORM HEP WITH SUPERVISION WITHIN 3WEEKS. PT LTG: PATIENT WILL DEMONSTRATE INCREASED STRENGTH OF B LE FROM 4-/5 TO 4+/5 WITHIN 4 WEEKS IN ORDER TO AMBULATE INDEPENDENTLY. PT LTG: PATIENT WILL DEMONSTRATE IMPROVED ABILITY TO SAFELY NEGOTIATE STAIRS FROM UNABLE TO INDEPENDENT WITH QUAD CANE IN ORDER TO GO IN AND OUT OF THE HOUSE WITHIN 4 WEEKS PT STG: PATIENT WILL DEMONSTRATE IMPROVED ABILITY TO PERFORM SIT TO/FROM STAND TRANSFERS TO REDUCE THE RISK OF SKIN BREAKDOWN AND REDUCE FALL RISK FROM SBA TO INDEPENDENT WITHIN 3 WEEKS. PT LTG: PATIENT WILL MAINTAIN OXYGEN SATURATION WITHIN PHYSICIAN ORDERED PARAMETERS THROUGHOUT EPISODE OF CARE. PT GOAL: PATIENT WILL DEMONSTRATE UNDERSTANDING OF PAIN MANAGEMENT TECHNIQUES EVIDENCED BY ABSENCE OF PAIN AT THE END OF THE EPISODE. PATIENTS BLOOD SUGAR WILL REMAIN WELL CONTROLLED WITH SELF-MANAGEMENT THROUGHOUT EPISODE OF CARE. PT GOAL: PATIENT WILL NOT EXHIBIT SIGNS AND SYMPTOMS OF UTI. PT GOAL: PATIENT/CAREGIVER WILL VERBALIZE UNDERSTANDING OF SIGNS AND SYMPTOMS THAT PUT THE PATIENT AT RISK FOR HOSPITALIZATION /EMERGENCY ROOM VISITS, WHEN TO NOTIFY NURSE/PHYSICIAN OF COMPLICATIONS/DECLINE AND WHEN TO CALL 911. PT LTG: PATIENT/CAREGIVER WILL DEMONSTRATE ADHERENCE TO FALL REDUCTION SELF-MANAGEMENT AND REDUCING FALL RISK FACTORS TO MINIMIZE FALL RISK BY END OF EPISODE. PT LTG: PATIENT WILL BE INDEPENDENT WITH IMPLEMENTATION OF HEP WITHIN 3 WEEKS. PATIENT/CAREGIVER WILL BE ABLE TO IDENTIFY SIGNS OF HYPER- AND HYPOGLYCEMIA AND VERBALIZE HOW TO MANAGE SYMPTOMS. Encounters Start Date/Time End Date/Time Encounter Type Admission Type Attending [facility] Care Department Encounter ID Discharge Date Discharge Status Discharge Condition Discharge Reason Percent Goals Met 2025-05-30 00:00:00 2025-07-28 00:00:00 Outpatient NEW ADMISSION VERONICA OLEARY [facility] [id number] 12.50
--- OUTSIDE RECORDS SUMMARY | 2025-06-09 07:17 | XMS_ITS | Referral Summary ---
Author Organization [facility] 155 [facility] lt Address [address] [place] [address] Care Team Providers Care Boiler Washer Name Role Phone Britton Swanson MD Primary Care Provider [phone] Reggie Guzmán DO Unavailable [phone] Vladimir Murrell MD Unavailable [phone] Bee Archuleta RN Unavailable [phone] Encounters Date Type Department Care Team Description 05/31/2025 9:30 AM CDT Office Visit [facility] [address] [place] [address] Elsy Miranda, RAND Hypertension associated with diabetes (HCC) (Primary Dx); Type 2 diabetes mellitus without complication, without long-term current use of insulin (HCC); Prostate cancer (HCC); Bilateral impacted cerumen; Hospital discharge follow-up; Urinary tract infection associated with indwelling urethral catheter, initial encounter; Abdominal aortic aneurysm (AAA) without rupture, unspecified part 05/23/2025 3:52 PM CDT - 05/26/2025 11:25 AM CDT Hospital Encounter [address] [id number] James Cooley MD Huynh, Kiet T., MD Kheirkhahan, Nazanin, MD Urinary tract infection associated with indwelling urethral catheter, initial encounter (Primary Dx); Cystitis; Abdominal aortic aneurysm (AAA) without rupture, unspecified part; Hypertension associated with diabetes (HCC); Balance problem Discharge Disposition: Discharge to home, home health skilled care 05/25/2025 Telephone [facility] [address] [phone] Britton Swanson MD Medical Question/Miscellaneou s 05/23/2025 Nurse Triage [facility] [address] [phone] Britton Swanson MD 05/23/2025 Telephone [facility] [address] [address] Britton Swanson MD 05/11/2025 8:00 AM CDT Office Visit [facility] [address] [phone] Tete Parker NP Prostate cancer (HCC) (Primary Dx); Urinary retention; BMI 23.0-23.9, adult 05/05/2025 [facility] ED Outreach [facility] Accountable Care Organization [address] [place] [phone] Jeannette Dooley MA 05/04/2025 6:25 AM CDT - 05/04/2025 9:26 AM CDT Emergency [facility] Emergency Department [address] [place] [phone] Yosvany Garcia MD Urinary retention (Primary Dx) Discharge Disposition: Discharge to home or self care 05/02/2025 Results Follow-Up [facility] [address] [phone] Zoie Jarquin NP CBC with auto differential, Urinalysis reflex to microscopic and culture Urine, clean voided, Comprehensive metabolic panel, Additional followed-up results: 4 05/01/2025 1:30 PM CDT Lab [facility] [address] [place] [phone] Acute cystitis with hematuria; Urinary retention; BEBE (acute kidney injury) 05/01/2025 1:15 PM CDT Lab [facility] [address] [place] [phone] Acute cystitis with hematuria; Type 2 diabetes mellitus without complication, without long-term current use of insulin (HCC); Hypertension associated with diabetes (HCC); Type 2 diabetes mellitus with hyperlipidemia (HCC); Encounter for Medicare annual wellness exam 04/27/2025 [facility] Post Discharge Follow up phone call [facility] [address] [place] [phone] Christina Mccray 04/26/2025 Telephone [facility] [address] [phone] Britton Swanson MD Medical Question/Miscellaneou s 04/26/2025 10:00 AM CDT Office Visit [facility] [address] [phone] Zoie Jarquin NP Hospital discharge follow-up (Primary Dx); Left wrist pain; Prostate cancer (HCC); Urinary retention; BEBE (acute kidney injury); Constipation, unspecified constipation type; Acute cystitis with hematuria; BMI 23.0-23.9, adult 04/24/2025 Telephone [facility] [address] [phone] Britton Swanson MD [facility] Questions 04/21/2025 12:09 AM CDT - 04/22/2025 12:38 PM CDT Hospital Encounter [facility] [address] [place] [address] Henry Mason MD Petters, MD Angelica Jeffrey John Albert Jr., MD BEBE (acute kidney injury) (Primary [...] or self care from Last 3 Months Allergies Active Allergy Reactions Criticality Noted Date Comments Ipwlkbr-Beo-Rah Reductase Inhibitors Angioedema High Bruises all over [...] or 2. Coronary artery disease invo lving torres martinez coronary artery of torres martinez heart without angina pectoris 11/24/2019 Assessment & Plan (04/04/2021 9:25 AM CDT): Patient remains free of any symptoms to suggest angina or heart failure. He will continue with aggressive secondary risk factor modification. Need for influenza vaccination 10/27/2019 Assessment & Plan (10/27/2019 5:07 PM BIOCHEMICAL DEVELOPMENT ENGINEER): Flu vaccine given today. Discussed possible tenderness/redness at injection site. Need for vaccination 10/27/2019 Assessment & Plan (10/27/2019 5:07 PM BIOCHEMICAL DEVELOPMENT ENGINEER): Pneumovax 23 vaccine given today. Discussed possible tenderness/redness at injection site. BMI 23.0-23.9, adult 10/27/2019 Assessment & Plan (05/11/2025 8:41 AM CDT): Weight loss of 6 lbs in the past 2 months. Decreased appetite. Encouraged use of nail supplement/protein drinks. Stressed the need to push fluids. Assessment & Plan (04/26/2025 10:16 AM CDT): Weight appropriate for patient. Assessment & Plan (10/27/2019 5:04 PM BIOCHEMICAL DEVELOPMENT ENGINEER): Discussed healthy diet and importance of regular physical activity. BMI is acceptable for this patient. Nausea 10/27/2019 Assessment & Plan (10/27/2019 5:06 PM BIOCHEMICAL DEVELOPMENT ENGINEER): Poor intake. Discussed zofran and then 20-30 min later small intake. Discussed 5-6 smaller meals/grazing instead of 3 larger meals at least until appetite improved. Discussed bland diet (BRAT). Denies reflux, no epigastric pain. Denies dizzy/lightheaded. No SOB. Denies CP/arm/neck pain. Reviewed red flags. Old [place] (myocardial infarction) 10/18/2019 Overview (10/18/2019): Added automatically from request for surgery [id number] Assessment & Plan (10/27/2019 5:08 PM BIOCHEMICAL DEVELOPMENT ENGINEER): appt w/Dr Guzmán 12/02/19. Reviewed red flags; [...] if they do not. Red flags reviewed. Immunizations Immunization Administration Dates Next Due Influenza, [...] Refused),11/23/2019(Deferred: Patient Refused) Pneumococcal Polysaccharide PPV23 10/27/2019 Social History Tobacco Use Types Packs/Day Years Used Date Smoking Tobacco: Former Cigarettes 2 20 1 978 - 1997 Pipe Smokeless Tobacco: Never Tobacco Cessation:Counseling Given: Not Answered Comments:Smoking History Packs/day: 2 Packs Alcohol Use Standard Drinks/Week Comments No 0 (1 standard drink = 0.6 oz pur e alcohol) [facility] Utilities Answer Date Recorded In the past 12 months has th e electric, gas, oil, or water company [...] often do you attend chur ch or anabaptist services? 1 to 4 times per year 05/29/2025 Do you belong to any clubs o r organizations such as taoist groups, unions, fraternal or athletic groups, or [...] should administer the PHQ-9) 0 05/31/2025 [facility] - Occup[facility] Stress [...] any time in the past 12 m [facility], were you homeless or living in a [place] health care facility (including now)? No 05/29/2025 Personal Safety Answer Date Recorded Have you ever been in or are you currently in a harmful physical or emotional relationship or is someone making you feel afraid or unsafe? Denies 05/23/2025 Sex and Gender Information Value Date Recorded Sex Assigned at Not on file Legal Sex Male 6:12 AM BIOCHEMICAL DEVELOPMENT ENGINEER Gender Identity Not on file Sexual Orientation Not on file Occupation Industry Job Start Date Job End Date retired Not on file Not on file Not on file Last Filed Vital Signs Vital Sign Reading [...] 05/31/2025 9:41 AM CDT Plan of Treatment Not on file Goals Goal Patient Goal Type Associated Problems [...] is agreeable. Medical Devices Implanted Type Area Math Coach Device Identifier Shelf Expiration Date Model / Serial / Lot Octopusapp [id number] Synergy 2.75mm 16mm 144cm Radiopaque 1 Access Port Inflation - [id number] Implanted:Qty: 1 on 10/18/2019 by Thiago Gutierrez MD at [facility] [employer] Miah 07/10/2021 [id number] / / [id number] [employer]ig [employer] [id number] Angio-Seal Evolution 6fr .035in Guidewire Bypass Tube Suture - [id number] Implanted:Qty: 1 on 10/18/2019 by Thiago Gutierrez MD at [facility] [employer] 06/22/2020 [id number] / / [id number] Procedures Procedure Name Priority Date/Time Associated Diagnosis Comments [place] REMOVAL IMPACTED CERUMEN INSTRUMENTATION UNILAT Routine 05/31/2025 [...] Recently Relevant to Health Maintenance Results * [place] REMOVAL IMPACTED CERUMEN INSTRUMENTATION UNILAT (05/31/2025 9:30 AM CDT) Narrative Elsy Miranda NP - 05/31/2025 9:30 AM CDT Elsy Miranda [...] with no immediate complications us Elsy Miranda [facility]/B[facility]IDE ORDERABL ES Final Result * [...] BLOOD ORDERABLES Final Resu lt [facility] ([place]) [address] [facility] [place] [address] * Differential, auto (05/26/2025 7:06 AM CDT) Neutrophil abs 4.85 1.50 - 6.50 K/cumm Imm gran abs 0.03 0.00 - 0.10 K/cumm [facility] ([place]) Lymphocyte abs 1.36 0.80 - 3.30 K/cumm [facility] ([place]) Monocyte abs 0.78 0.20 - 0.80 K/cumm [...] Final Resu lt [facility] ([place]) [address] [facility] [place] [address] * (ABNORMAL) CBC with auto differential (05/26/2025 7:06 AM CDT) Pathologist [facility] WBC 7.56 3.80 - 9.90 K/cumm Hgb [...] Final Resu lt [facility] ([place]) [address] [facility] [place] [address] * (ABNORMAL) Comprehensive metabolic panel (05/26/2025 7:06 AM CDT) [facility] Sodium 139 135 - 145 mmol/L Potassium, [...] Final Resu lt [facility] ([place]) [address] [facility] [place] [address] * eGFR (05/25/2025 3:42 AM CDT) eGFR [...] MD LAB BLOOD ORDERABLES Final Resu lt [facility] ([place]) [address] [facility] [place] [address] * (ABNORMAL) Differential, auto (05/25/2025 3:42 AM [...] revised on 2018. Monocyte pct 9.5 % [facility] ([place]) Comment: Interpretive Data Percent cell [...] revised on 2018. Basophil pct 0.5 % [facility] ([place]) Comment: Interpretive Data Percent cell count reference ranges are not reported, since discordance with absolute values may lead to misinterpretation of CBC data. Current Interpretive Data was last revised on 2018. Blood 05/25/2025 3:42 AM CDT 05/25/2025 4:13 AM CDT us Chilango Costello MD LAB BLOOD ORDERABLES Final Resu lt [facility] ([place]) [address] [facility] Department of Laboratories [place], [place] [id number] * (ABNORMAL) CBC with auto differential (05/25/2025 3:42 AM CDT) WBC 9.97(H) 3.80 - 9.90 K/cumm Hgb 11.5(L) 13.0 - 17.5 g/dL [facility] ([place]) Hct 33.5(L) 38.9 - 50.3 % [...] Final Resu lt [facility] ([place]) [address] [facility] [place] [address] * (ABNORMAL) Comprehensive metabolic panel (05/25/2025 3:42 [...] Final Resu lt [facility] ([place]) [address] [facility] [place] [address] * Infection Prevention Ambika auris PCR, surveillance Axilla/Groin (05/24/2025 12:10 PM CDT) Ambika auris DNA Not Detected Not Detected [facility] Comment: Interpretive Data Testing performed by [facility] using the Joanna debra 6800 Ambika auris assay. This assay detects DNA from Ambika auris using Real-Time PCR. This assay is laboratory developed and is not cleared by the [place] Food and Drug Administration. The performance characteristics have been verified by the [facility]. Testing performed by: [facility], [address] [facility] [place]., [address] Axilla/Groin 05/24/2025 12:1 0 PM CDT 05/24/2025 3:34 PM CDT us Cuauhtemoc Freed MD LAB MICROBIOLOGY - G ENERAL ORDERABLES Final Result [facility] ([place]) [address] [facility] Department [place] [address] [facility] * eGFR (05/24/2025 4:20 AM CDT) eGFR [...] BLOOD ORDERABLES Final Resu lt [facility] ([place]) [address] [facility] [place] [address] * (ABNORMAL) Differential, auto (05/24/2025 4:20 AM CDT) Neutrophil abs 10.06(H) 1.50 - 6.50 K/cumm Imm gran abs 0.07 0.00 - 0.10 K/cumm [facility] ([place]) Lymphocyte abs 0.99 0.80 - 3.30 K/cumm [facility] ([place]) Monocyte abs 1.20(H) 0.20 - 0.80 K/cumm [facility] ([place]) Eosinophil abs 0.11 0.00 - 0.50 K/cumm [facility] ([place]) Basophil abs 0.05 0.00 - 0.10 K/cumm [facility] ([place]) Neutrophil pct 80.6 % [facility] ([place]) Comment: Interpretive Data Percent cell count reference ranges are not reported, since discordance with absolute values may lead to misinterpretation of CBC data. Current Interpretive Data was last revised on 2018. Imm gran pct 0.6 % [facility] ([place]) Comment: Interpretive Data Percent cell count reference ranges are not reported, since discordance with absolute values may lead to misinterpretation of CBC data. Current Interpretive Data was last revised on 2018. Lymphocyte pct 7.9 % [facility] ([place]) Comment: Interpretive Data Percent cell count reference ranges are not reported, since discordance with absolute values may lead to misinterpretation of CBC data. Current Interpretive Data was last revised on 2018. Monocyte pct 9.6 % [facility] ([place]) Comment: Interpretive Data Percent cell count reference ranges are not reported, since discordance with absolute values may lead to misinterpretation of CBC data. Current Interpretive Data was last revised on 2018. Eosinophil pct 0.9 % [facility] ([place]) Comment: Interpretive [...] Final Resu lt [facility] ([place]) [address] [facility] [place] [address] * (ABNORMAL) CBC with auto differential (05/24/2025 [...] Final Resu lt [facility] ([place]) 1 [facility] [place] [address] * (ABNORMAL) Comprehensive metabolic panel (05/24/2025 4:20 [...] Final Resu lt [facility] ([place]) [address] [facility] [place] [address] * Sepsis Lactate w/ Reflex (05/23/2025 6:59 PM CDT) Sepsis Lactate 0.8 0.7 - 2.0 mmol/L Blood 05/23/2025 6:59 PM CDT 05/23/2025 7:03 PM CDT Juanito Henning MD LAB BLOOD ORDERABLES Final R esult [facility] ([place]) [address] [place] [address] * Blood culture Blood (05/23/2025 6:59 PM CDT) Report Final Report: No growth Comment:Testing performed by : [facility], [address] [place]., [address] Blood 05/23/2025 6:59 PM CDT 05/23/2025 9:32 PM CDT Narrative [facility] ([place]) - 05/28/2025 7:00 AM CDT From a [...] performance characteristics have been verified by the [facility]. For questions about this culture, contact the Microbiology Laboratory at [phone]. Interpretive data was last revised on 24. us Juanito Henning MD LAB MICROBIOLOGY - GENERAL O RDERABLES Final Result [facility] ([place]) [address] [place] [address] [place] [address] * Blood culture Blood (05/23/2025 6:59 PM CDT) Report Final Report: No growth Comment:Testing performed by : [facility], [address] [place]., [address] Blood 05/23/2025 6:59 PM CDT 05/23/2025 9:32 PM CDT Narrative [facility] ([place]) - 05/28/2025 7:00 AM CDT 1. [...] performance characteristics have been verified by the [facility]. For questions about this culture, contact the Microbiology Laboratory at [phone]. Interpretive data was last revised on 24. Juanito Henning MD LAB MICROBIOLOGY - GENERAL O RDERABLES Final Result Performing Organization Address City/[facility]/ZIP Co de Phone Number [facility] ([place]) [address] [facility] [place] [address] * (ABNORMAL) Urinalysis reflex to microscopic and [...] tendency for uric acid stone formation. Source: [facility] [place] Current Interpretive Data was last revised on [...] 5:11 PM CDT 05/23/2025 5:13 PM CDT James Cooley MD LAB MICROBIOLOGY - GENERAL ORDERABLES Final Result [facility] ([place]) [address] [facility] Department [place] [address] * (ABNORMAL) Urinalysis, microscopic only (05/23/2025 5:11 PM CDT) WBC, ur >50(A) 0 - 5 /HPF RBC, ur 21-50(A) 0 - 2 /HPF [facility] ([place]) Epithelial cells, squamous, ur 1-5 0 - 5 /HPF [facility] ([place]) Bacteria, ur 4+(A) [facility] ([place]) Mucous, ur Present(A) [facility] ([place]) Culture Reflex Comment Reflex to urine culture will be performed. [facility] ([place]) Urine 05/23/2025 5:11 PM CDT 05/23/2025 5:16 PM CDT us James Cooley MD LAB URINE ORDERABLES Final Result [facility] ([place]) [address] [facility] [place] [address] * (ABNORMAL) Urine culture Urine (05/23/2025 5:11 PM CDT) Report Final Report: Greater than or equal to 100,000 colonies/mL of Enterococcus faecalis Plus growth of clinically insignificant bacterial zoey. (.) Comment:Testing performed by : [facility], [address] [facility] [place]., [address] Organism ENTEROCOCCUS FAECALIS [facility] ([place]) Organism PLUS GROWTH OF CLINICALLY INSIGNIFICANT ZOEY. [facility] ([place]) Urine 05/23/2025 5:11 PM CDT 05/23/2025 8:32 PM CDT Narrative [facility] ([place]) - 05/26/2025 12:46 PM CDT Urine culture reflexed based upon urinalysis results. Testing performed by [facility] ([phone]) Organism Antibiotic Method Susceptibility Enterococcus faecalis Ampicillin ([place]ILIANA) INTERPRETATIO N Resistant Enterococcus faecalis Vancomycin ([place]ILIANA) INTERPRETATIO N Susceptible Enterococcus faecalis Linezolid ([place]IL[place]NA) INTERPRETATIO N Susceptible Enterococcus faecalis Doxycycline ([place]IL[place]) INTERPRETATIO N Intermediate Enterococcus faecalis Nitrofurantoin ([place]IL[place]NA) INTERPRETAT ION Susceptible us Nelson Kanumuri MD LAB MICROBIOLOGY - GENERAL ORD ERABLES Final Result [facility] [place] [facility] Department [place] [address] * CT Abdomen Pelvis W Contrast (05/23/2025 [...] Rosario Zuniga M.D. FT: FT Report ID: [id number] Reading Location: [place] [address] Procedure Note Maria Del Rosario Nixon MD [...] Rosario Zuniga M.D. FT: FT Report ID: [id number] Reading Location: [place] [address] James Cooley MD IM CT PROCEDURES Final Res ult * eGFR [...] LAB BLOOD ORDERABLES Final Result [facility] ([place]) [address] [facility] Department [place] [address] * (ABNORMAL) Differential, auto (05/23/2025 1:21 PM CDT) Neutrophil abs 10.79(H) 1.50 - 6.50 K/cumm Imm gran abs 0.04 0.00 - 0.10 K/cumm [facility] ([place]) Lymphocyte abs 1.02 0.80 - 3.30 K/cumm [facility] ([place]) Monocyte abs 1.18(H) 0.20 - 0.80 K/cumm [facility] ([place]) Eosinophil abs 0.08 0.00 - 0.50 K/cumm [facility] ([place]) Basophil abs 0.04 0.00 - 0.10 K/cumm [facility] ([place]) Neutrophil pct 82.0 % [facility] ([place]) Comment: Interpretive [...] MD LAB BLOOD ORDERABLES Final Result [facility] ([place]) [address] [facility] [place] [address] * (ABNORMAL) CBC with auto differential (05/23/2025 1:21 PM CDT) WBC 13.15(H) 3.80 - 9.90 K/cumm Hgb 13.1 13.0 - 17.5 g/dL [facility] ([place]) Hct 37.4(L) 38.9 - 50.3 % [facility] ([place]) Plt 265 150 - 400 K/cumm [facility] ([place]) MPV 8.8(L) 9.1 - 12.3 fL [facility] ([place]) RBC 4.07(L) 4.30 - 5.80 M/cumm [facility] ([place]) MCV 91.9 81.3 - 96.4 fL [facility] ([place]) MCH 32.2 27.1 - 33.3 pg [facility] ([place]) MCHC 35.0 32.3 - 35.7 g/dL [facility] RDW CV 12.2 11.1 - 14.9 % [facility] ([place]) RDW SD 40.9 35.7 - 48.1 fL [facility]) NRBC abs 0.00 0.00 - 0.01 K/cumm [facility] Blood Venous blood specimen / Unknown 05/23/2025 1:21 PM CDT 05/23/2025 1:24 PM CDT James Cooley MD LAB BLOOD ORDERABLES Final Result [facility] ([place]) [address] [facility] [place] [address] * Lipase (05/23/2025 1:21 PM CDT) Pathologist [facility] Lipase 23 10 - 99 Units/L Blood Venous blood specimen / Unknown 05/23/2025 1:21 PM CDT 05/23/2025 1:24 PM CDT James Cooley MD LAB BLOOD ORDERABLES Final Result Performing Organization Address City/[facility]/ZIP Co de Phone Number [facility] ([place] 1 [facility] [place] [address] * (ABNORMAL) Comprehensive metabolic panel (05/23/2025 1:21 PM CDT) Sodium 136 135 - 145 mmol/L Potassium, pl 4.1 3.3 - 4.9 mmol/L [facility] ([place]) Chloride 101 97 - 110 mmol/L [facility] ([place]) CO2 20(L) 22 - 32 mmol/L [facility] Anion gap 15 2 - 15 mmol/L [facility] ([place]) BUN 19 6 - 25 mg/dL [facility] ([place]) Creatinine 0.97 0.80 - 1.30 mg/dL [facility] ([place]) Glucose 135 70 - 199 [...] Cooley MD LAB BLOOD ORDERABLES Final Result [facility] ([place]) [address] [facility] [place] [address] * (ABNORMAL) Urinalysis reflex to microscopic and culture Urine (05/04/2025 7:35 AM CDT) Color, ur Brown Clarity, ur Turbid(A) Clear [facility] ([place]) Specific gravity, ur See Comment 1.003 - 1.030 [facility] ([place]) Comment:Due to the presence of Urine Chromagens and/or Gross Blood, only a microscopic examination was performed. pH, urine See Comment [facility] ([place]) Comment: Due to the presence of Urine [...] tendency for uric acid stone formation. Source: [facility] Current Interpretive Data was last revised on 2017 Protein, ur ql See Comment Negative [facility] ([place]) Comment:Due to the presence of Urine Chromagens and/or Gross Blood, only a microscopic examination was performed. Glucose, ur ql See Comment Negative [facility] ([place]) Comment:Due to the presence of Urine Chromagens and/or Gross Blood, only a microscopic examination was performed. Ketones, ur See Comment Negative [facility] ([place]) Comment:Due to the presence of Urine Chromagens and/or Gross Blood, only a microscopic examination was performed. Bilirubin, ur See Comment Negative [facility] ([place]) Comment:Due to the presence of Urine Chromagens and/or Gross Blood, only a microscopic examination was performed. Blood, ur See Comment Negative [facility] ([place]) Comment:Due to the presence of Urine Chromagens and/or Gross Blood, only a microscopic examination was performed. Urobilinogen, ur See Comment <2.0 mg/dL [facility] ([place]) Comment:Due to the presence [...] will be performed. [facility] ([place]) Urine 05/04/2025 7:35 AM CDT 05/04/2025 7:38 AM CDT us Yosvany Garcia MD LAB MICROBIOLOGY - GENERAL ORDERABLES Final Result [facility] ([place]) [address] [facility] [place] [address] * (ABNORMAL) Urinalysis, microscopic only (05/04/2025 7:35 AM CDT) WBC, ur 6-10(A) 0 - 5 /HPF RBC, ur 21-50(A) 0 - 2 /HPF [facility] ([place]) Epithelial cells, squamous, ur 1-5 0 - 5 /HPF [facility] ([place]) Bacteria, ur 1+(A) [facility] ([place]) Mucous, ur Present(A) [facility] ([place]) Culture Reflex Comment Reflex conditions for urine culture (WBC >10) not met. [facility] ([place]) Urine 05/04/2025 7:35 AM CDT 05/04/2025 7:38 AM CDT Henry Mason MD LAB URINE ORDERABLES Final Re sult C[facility] ([place]) [address] [facility] [place] [address] * eGFR (05/04/2025 5:10 AM CDT) eGFR [...] BLOOD ORDERABLE S Final Result [facility] ([place]) [address] [facility] [place] [address] * (ABNORMAL) Differential, auto (05/04/2025 5:10 AM [...] S Final Result [facility] (EFRA) 1 [facility] [place] [address] * (ABNORMAL) CBC with auto differential (05/04/2025 [...] - 0.01 K/cumm [facility] (EFRA) Blood Venous blood specimen / Unknown 05/04/2025 5:10 AM CDT 05/04/2025 5:29 AM CDT Yosvany Garcia MD LAB BLOOD ORDERABLE S Final Result CATHIE CREWS (EFRA) 1 [facility] [place] [address] * Lipase (05/04/2025 5:10 AM CDT) Lipase 27 10 - 99 Units/L Blood Venous blood specimen / Unknown 05/04/2025 5:10 AM CDT 05/04/2025 5:29 AM CDT Yosvany Garcia MD LAB BLOOD ORDERABLE S Final Result Performing Organization Address City/[facility]/ZIP Co de Phone Number CATHIE CREWS (EFRA) 1 [facility] [place] [address] * (ABNORMAL) Comprehensive metabolic panel (05/04/2025 5:10 AM CDT) Sodium 142 135 - 145 mmol/L Potassium, pl 4.4 3.3 - 4.9 mmol/L [facility] (EFRA) Chloride 105 97 - 110 mmol/L [facility] (EFRA) CO2 20(L) 22 - 32 mmol/L [facility] (EFRA) Anion gap 17(H) 2 - 15 mmol/L [facility] (EFRA) BUN 24 6 - 25 mg/dL [facility] (EFRA) Creatinine 1.10 0.80 - 1.30 mg/dL [facility] (EFRA) Glucose 176 70 - 199 mg/dL [facility] (EFRA) Comment: Interpretive Data Fasting glucose [...] S Final Result [facility] (EFRA) 1 [facility] [place] [address] * eGFR (05/01/2025 1:18 PM CDT) eGFR [...] was last reviewed 2021. Testing performed by: [address] [address] Blood 05/01/2025 1:18 PM CDT 05/01/2025 7:22 PM CDT Zoie Jarquin [facility] LAB BLOOD ORDERABLES Final Re sult [facility] ([place]) 1 [facility] [place] [address] * Differential, auto (05/01/2025 1:18 PM CDT) Neutrophil abs 5.91 1.50 - 6.50 K/cumm Comment:Testing performed by : [address] [address] Imm gran abs 0.02 0.00 - 0.10 K/cumm [facility] (EFRA) Comment:Testing performed by : [address], [address] Lymphocyte abs 1.60 0.80 - 3.30 K/cumm [facility] (EFRA) Comment:Testing performed by : [address] [address] Monocyte abs 0.80 0.20 - 0.80 K/cumm [facility] (EFRA) Comment:Testing performed by : [address] [address] Eosinophil abs 0.29 0.00 - 0.50 K/cumm [facility] (EFRA) Comment:Testing performed by : [address], [address] Basophil abs 0.07 0.00 - 0.10 K/cumm [facility] (EFRA) Comment:Testing performed by : [address], [address] Neutrophil pct 68.1 % [facility]NE R [facility] ([place]) Comment: Interpretive Data Percent cell count reference ranges are not reported, since discordance with absolute values may lead to misinterpretation of CBC data. Current Interpretive Data was last revised on 2018. Testing performed by: [address], [place]., [address] Imm gran pct 0.2 % [facility] (EFRA) Comment: Interpretive Data Percent cell count reference ranges are not reported, since discordance with absolute values may lead to misinterpretation of CBC data. Current Interpretive Data was last revised on 2018. Testing performed by: [facility], [address] [place] [address]., [address] Lymphocyte pct 18.4 % [facility] R [facility] (EFRA) Comment: Interpretive Data Percent cell count reference ranges are not reported, since discordance with absolute values may lead to misinterpretation of CBC data. Current Interpretive Data was last revised on 2018. Testing performed by: [facility], [address] [place] [address]., [address] Monocyte pct 9.2 % [facility] (EFRA) Comment: Interpretive Data Percent cell count reference ranges are not reported, since discordance with absolute values may lead to misinterpretation of CBC data. Current Interpretive Data was last revised on 2018. Testing performed by: [facility], [address] [place] [address]., [address] Eosinophil pct 3.3 % [facility] R [facility] (EFRA) Comment: Interpretive Data Percent cell count reference ranges are not reported, since discordance with absolute values may lead to misinterpretation of CBC data. Current Interpretive Data was last revised on 2018. Testing performed by: [address] [address] Basophil pct 0.8 % [facility] (EFRA) Comment: Interpretive Data Percent cell count reference ranges are not reported, since discordance with absolute values may lead to misinterpretation of CBC data. Current Interpretive Data was last revised on 2018. Testing performed by: [address] [address] Blood 05/01/2025 1:18 PM CDT 05/01/2025 6:25 PM CDT us Zoie Jarquin NP LAB BLOOD ORDERABLES Final Re sult CATHIE CREWS (EFRA) 1 [facility] [place] [address] * (ABNORMAL) Urinalysis reflex to microscopic and culture Urine, clean voided (05/01/2025 1:18 PM CDT) Color, ur Yellow Yellow Comment:Testing performed by : [address] [address] Clarity, ur Turbid(A) Clear CERNER A (EFRA) Comment:Testing performed by : [address] [address] Specific gravity, ur 1.026 1.003 - 1.030 [facility] (EFRA) Comment:Testing performed by : [address], [address] pH, urine 5.5 [facility]ERLOUISE [facility] (EFRA) Comment: Interpretive Data U rine pH is affected by diet, medications, systemic acid-base disturbances, and renal tubular function. pH may affect urinary stone formation. For example, urine pH below 6.0 may help reduce the tendency for calcium phosphate stones and pH greater than 6.0 may reduce the tendency for uric acid stone formation. Source: [facility] Current Interpretive Data was last revised on 2017 Testing performed by: [address] [address] Protein, ur ql Trace Negative [facility]NE R [facility] (EFRA) Comment:Testing performed by : [address] [address] Glucose, ur ql Negative Negative [facility] R [facility] (EFRA) Comment:Testing performed by : [address] [address] Ketones, ur Negative Negative CERNER A (EFRA) Comment:Testing performed by : [address] [address] Bilirubin, ur Negative Negative [facility] (EFRA) Comment:Testing performed by : [address] [address] Blood, ur 3+(A) Negative [facility] (EFRA) Comment:Testing performed by : [address] [address] Urobilinogen, ur <2.0 <2.0 mg/dL [facility] (EFRA) Comment:Testing performed by : [address], [address] Nitrite, ur Negative Negative CATHIE Dean (EFRA) Comment:Testing performed by : [address], [address] Leukocyte esterase, ur 1+(A) Negative CATHIE CREWS (EFRA) Comment:Testing performed by : [address], [address] UA reflex comment Reflex to microscopic UA will be performed. CATHIE CREWS (EFRA) Comment:Testing performed by : [address], [address] Urine, clean voided 05/01/2025 1:18 PM CDT 05/01/2025 6:25 PM CDT Zoie Jarquin NP LAB MICROBIOLOGY - GENERAL OR DERABLES Final Result CATHIE CREWS (EFRA) 1 [facility] Department [place] [address] * CBC with auto differential (05/01/2025 1:18 PM CDT) WBC 8.69 3.80 - 9.90 K/cumm Comment:Testing performed by : [address], [address] Hgb 15.1 13.0 - 17.5 g/dL CATHIE CREWS (EFRA) Comment:Testing performed by : [address], [address] Hct 44.4 38.9 - 50.3 % CATHIE CRE[facility] (EFRA) Comment:Testing performed by : [address], [address] Plt 239 150 - 400 K/cumm CATHIE [facility] (EFRA) Comment:Testing performed by : [address], [address] MPV 10.2 9.1 - 12.3 fL CATHIE CREWS (EFRA) Comment:Testing performed by : [address], [address] RBC 4.61 4.30 - 5.80 M/cumm [facility] (EFRA) Comment:Testing performed by : [facility], [address] [place] [address], [address] MCV 96.3 81.3 - 96.4 fL [facility] (EFRA) Comment:Testing performed by : [facility], [address] [place] [address], [address] MCH 32.8 27.1 - 33.3 pg [facility] (EFRA) Comment:Testing performed by : [facility], [address] [place] [address], [address] MCHC 34.0 32.3 - 35.7 g/dL [facility] (EFRA) Comment:Testing performed by : [address], [address] RDW CV 12.9 11.1 - 14.9 % [facility] (EFRA) Comment:Testing performed by : [address], [address] RDW SD 45.9 35.7 - 48.1 fL [facility] (EFRA) Comment:Testing performed by : [address], [address] NRBC abs 0.00 0.00 - 0.01 K/cumm [facility] (EFRA) Comment:Testing performed by : [address], [address] Blood 05/01/2025 1:18 PM CDT 05/01/2025 6:25 PM CDT Zoie Jarquin [facility] LAB BLOOD ORDERABLES Final Re sult CATHIE CREWS (EFRA) 1 [facility] Department of Laboratories [place], [place] [id number] * (ABNORMAL) Urinalysis, microscopic only (05/01/2025 1:18 PM CDT) WBC, ur 11-20(A) 0 - 5 /HPF Comment:Testing performed by : [address], [address] RBC, ur 21-50(A) 0 - 2 /HPF CATHIE [facility] (EFRA) Comment:Testing performed by : [facility], [address] [place] [address]., [address] Epithelial cells, squamous, ur 1-5 0 - 5 /HPF CATHIE [facility] (EFRA) Comment:Testing performed by : [facility], [address] [place] [address], [address] Bacteria, ur 2+(A) CATHIE [facility] (EFRA) Comment:Testing performed by : [facility], [address] [place] [address], [address] Mucous, ur Present(A) CATHIE Dean (EFRA) Comment:Testing performed by : [facility], [address] [place] [address], [address] Culture Reflex Comment Reflex to urine culture will be performed. [facility]ATHIE [facility] (EFRA) Comment:Testing performed by : [address], [address] Urine, clean voided 05/01/2025 1:18 PM CDT 05/01/2025 6:25 PM CDT us Zoie Jarquin NP LAB URINE ORDERABLES Final Re sult [facility]ATHIE [facility] (EFRA) 1 [facility] [place] [address] * (ABNORMAL) Urine culture Urine, clean voided (05/01/2025 1:18 PM CDT) Report Final Report: Greater than or equal to 100,000 colonies/mL of Enterococcus faecalis Plus growth of clinically insignificant bacterial zoey. (.) Comment:Testing performed by : [facility], [address] [facility] [place]., [address] Organism ENTEROCOCCUS FAECALIS CATHIE [facility] (EFRA) Organism PLUS GROWTH OF CLINICALLY INSIGNIFICANT ZOEY. CATHIE [facility]WS (EFRA) Urine, clean voided 05/01/2025 1:18 PM CDT 05/01/2025 11:42 PM CDT Narrative CATHIE CREWS (EFRA) - 05/05/2025 6:20 AM CDT Urine culture reflexed based upon urinalysis results. Testing performed by [facility] ([phone]) Organism Antibiotic Method Susceptibility Enterococcus faecalis Ampicillin (LILIANA) INTERPRETATIO N Susceptible Enterococcus faecalis Vancomycin (LILIANA) INTERPRETATIO N Susceptible Enterococcus faecalis Linezolid (LILIANA) INTERPRETATIO N Susceptible Enterococcus faecalis Doxycycline (LILIANA) INTERPRETATIO N Intermediate Enterococcus faecalis Nitrofurantoin (LILIANA) INTERPRETAT ION Susceptible Zoie Jarquin NP LAB MICROBIOLOGY - GENERAL OR DERABLES Final Result CATHIE CREWS (EFRA) 1 [facility] Department [place] [address] * Comprehensive metabolic panel (05/01/2025 1:18 PM CDT) Sodium 143 135 - 145 mmol/L Comment:Testing performed by : [address], [address] Potassium, pl 4.1 3.3 - 4.9 mmol/L CATHIE [facility] (EFRA) Comment:Testing performed by : [address], [address] Chloride 109 97 - 110 mmol/L [facility] (EFRA) Comment:Testing performed by : [address], [address] CO2 24 22 - 32 mmol/L [facility] (EFRA) Comment:Testing performed by : [address], [address] Anion gap 10 2 - 15 mmol/L CATHIE CRE[facility] (EFRA) Comment:Testing performed by : [address], [address] BUN 24 6 - 25 mg/dL [facility] (EFRA) Comment:Testing performed by : [address], [address] Creatinine 0.99 0.80 - 1.30 mg/dL [facility] (EFRA) Comment:Testing performed by : [address], [address] Glucose 91 70 - 199 mg/dL CATHIE [facility]WS (EFAR) Comment: Interpretive Data Fasting glucose >/= 126 [...] was last revised 2022. Testing performed by: [facility], [address] [place] [address]., [address] Calcium 9.2 8.5 - 10.3 mg/dL [facility] (EFRA) Comment:Testing performed by : [address], [address] Bilirubin, total 0.4 0.1 - 1.2 mg/dL [facility] (EFRA) Comment:Testing performed by : [address], [address] Protein, pl 6.7 6.5 - 8.5 g/dL [facility] (EFRA) Comment:Testing performed by : [address], [address] Albumin 4.3 3.5 - 5.0 g/dL [facility] (EFRA) Comment:Testing performed by : [address] [address] Alk phos 84 40 - 130 Units/L [facility] (EFRA) Comment:Testing performed by : [address], [address] ALT 21 7 - 55 Units/L [facility] (EFRA) Comment:Testing performed by : [address], [address] AST 27 10 - 50 Units/L [facility] (EFRA) Comment:Testing performed by : [address], [address] Blood 05/01/2025 1:18 PM CDT 05/01/2025 6:25 PM CDT Zoie Jarquin [facility] LAB BLOOD ORDERABLES Final Re sult CATHIE CREWS (EFRA) 1 [facility] [place] [address] * Hemoglobin A1c (05/01/2025 1:16 PM CDT) Hgb A1C 5.4 4.0 - 5.6 % Comment:Testing performed by : [address] [address] Estimated Average Glucose 108 mg/dL CATHIE [facility] (EFRA) Comment: The ADA recommends reporting an estimated Average Glucose (eAG) with all Hemoglobin A1c results using the equation derived from a study of 507 normal and diabetic adults. Minority populations were underrepresented and children were not included. (Diabetes Care 31:9440-3970, 2008). The eAG is not equivalent to a fasting glucose. Testing performed by: [facility], [address] [place] [address]., [address] Blood 05/01/2025 1:16 PM CDT 05/01/2025 6:19 PM CDT Britton Swanson MD LAB BLOOD ORDERABLES More l Result Performing Organization Address City/[facility] Co de Phone Number CATHIE CREWS ([place]) 1 [facility] [place] [address] * (ABNORMAL) Lipid panel (05/01/2025 1:16 PM CDT) [facility] Cholesterol 148 30 - 199 mg/dL Comment: [...] last revised on 2018. Testing performed by: [address] [place] [address] Triglycerides 323(H) <=149 mg/dL CATHIE CREWS (EFRA) Comment: Interpretive Data [...] last revised on 2018. Testing performed by: [facility], [address] [place] [address]., [address] HDL 26(L) >=40 mg/dL CATHIE CREWS (EFRA) Comment: Interpretive Data [...] last revised on 2018. Testing performed by: [facility], [address] [place] [address]., [address] LDL, calculated 70 <=129 mg/dL CATHIE CREWS (EFRA) Comment: Interpretive Data Ages < or = 19 years Acceptable: <110 mg/dL Borderline high: 110-129 mg/dL High: >or= 130 mg/dL Ages > or = 20 years Optimal: <100 mg/dL Near optimal: 100-129 mg/dL Borderline high: 130-159 mg/dL High: >160 mg/dL Calculated using the Link LDL-C estimating equation. This equation was implemented [...] last revised on 2024. Testing performed by: [facility], [address] [place] [address]., [address] Non-HDL Cholesterol 122 mg/dL CATHIE CREWS (EFRA) [...] last revised on 2018. Testing performed by: [facility], [address] [place] [address]., [address] Chol/HDL ratio 6 MALDONADO CREWS (EFRA) Comment:Testing performed by : [address] [address] Blood 05/01/2025 1:16 PM CDT 05/01/2025 6:19 PM CDT Britton Swanson MD LAB BLOOD ORDERABLES More jameson Result CATHIE CREWS (EFRA) 1 [facility] Department of Laboratories [place], [place] [address] * POCT glucose (04/22/2025 12:00 PM CDT) Glucose, POC 101 70 - 199 mg/dL Blood 04/22/2025 12:0 0 PM CDT 04/22/2025 12:00 PM CDT us Reggie Dominguez Jr., MD LAB POCT ORDERABLES - DEVICE Final Result CATHIE CREWS ([place]) 1 [facility] [place] [address] * POCT glucose (04/22/2025 7:47 AM CDT) Glucose, POC 96 70 - 199 mg/dL Blood 04/22/2025 7:47 AM CDT 04/22/2025 7:47 AM CDT us Reggie Dominguez Jr., MD LAB POCT ORDERABLES - DEVICE Final Result Performing Organization Address [facility] Co de Phone Number CATHIE GutierresTEMECULA) 1 [facility] [place] [address] * eGFR (04/22/2025 2:12 AM CDT) eGFR [...] us Janak Coy MD LAB BLOOD ORDERABLES nal Result CATHIE CREWS ([place]) 1 [facility] [place] [address] * (ABNORMAL) Differential, auto (04/22/2025 2:12 AM CDT) Neutrophil abs 3.85 1.50 - 6.50 K/cumm Imm gran abs 0.02 0.00 - 0.10 K/cumm [facility] (EFRA) Lymphocyte abs 1.69 0.80 - 3.30 K/cumm [facility] ([place]) Monocyte abs 0.73 0.20 - 0.80 K/cumm [facility] ([place]) Eosinophil abs 0.72(H) 0.00 - 0.50 K/cumm [facility] ([place]) Basophil abs 0.05 0.00 - 0.10 K/cumm [facility] (EFRA) Neutrophil pct 54.6 % [facility]NE R [facility] ([place]) Comment: Interpretive Data Percent cell count reference ranges are not reported, since discordance with absolute values may lead to misinterpretation of CBC data. Current Interpretive Data was last revised on 2018. Imm gran pct 0.3 % [facility] ([place]) Comment: Interpretive Data Percent cell count reference ranges are not reported, since discordance with absolute values may lead to misinterpretation of CBC data. Current Interpretive Data was last revised on 2018. Lymphocyte pct 23.9 % [facility]NE R [facility] ([place]) Comment: Interpretive Data Percent cell count reference ranges are not reported, since discordance with absolute values may lead to misinterpretation of CBC data. Current Interpretive Data was last revised on 2018. Monocyte pct 10.3 % [facility] ([place]) Comment: Interpretive Data Percent cell count reference ranges are not reported, since discordance with absolute values may lead to misinterpretation of CBC data. Current Interpretive Data was last revised on 2018. Eosinophil pct 10.2 % [facility] R [facility] ([place]) Comment: Interpretive Data Percent cell count reference [...] Fi nal Result [facility]IE [facility] (EFRA) 1 [facility] [place] [address] * (ABNORMAL) CBC with auto differential (04/22/2025 [...] Fi nal Result CATHIE CREWS (EFRA) 1 [facility] [place] [address] * Magnesium (04/22/2025 2:12 AM CDT) Magnesium 1.7 1.4 - 2.5 mg/dL Blood 04/22/2025 2:12 AM CDT 04/22/2025 2:50 AM CDT us Janak Coy MD LAB BLOOD ORDERABLES Fi nal Result Performing Organization Address City/[facility]/ZIP Co de Phone Number CATHIE CREWS (EFRA) 1 [facility] [place] [address] * (ABNORMAL) Comprehensive metabolic panel (04/22/2025 2:12 AM CDT) Sodium 141 135 - 145 mmol/L Potassium, pl 3.9 3.3 - 4.9 mmol/L [facility] (EFRA) Chloride 107 97 - 110 mmol/L [facility] (EFRA) CO2 22 22 - 32 mmol/L [facility] (EFRA) Anion gap 12 2 - 15 mmol/L [facility] (EFRA) BUN 23 6 - 25 mg/dL [facility] (EFRA) Creatinine 1.02 0.80 - 1.30 mg/dL [facility] (EFRA) Glucose 95 70 - 199 mg/dL [facility] (EFRA) [...] (EFRA) AST 19 10 - 50 Units/L [facility] Blood 04/22/2025 2:12 AM CDT 04/22/2025 2:50 AM CDT us Janak Coy MD LAB BLOOD ORDERABLES Fi nal Result CATHIE CREWS ([place]) 1 [facility] [place] [address] * POCT glucose (04/22/2025 1:39 AM CDT) Glucose, POC 101 70 - 199 mg/dL Blood 04/22/2025 1:39 AM CDT 04/22/2025 1:39 AM CDT us Reggie Dominguez Jr., MD LAB POCT ORDERABLES - DEVICE Final Result Performing Organization Address City/[facility]/ZIP Co de Phone Number [facility] ([place]) 1 [facility] [place] [address] * POCT glucose (04/21/2025 8:26 PM CDT) Glucose, POC 169 70 - 199 mg/dL Blood 04/21/2025 8:26 PM CDT 04/21/2025 8:26 PM CDT us Reggie Dominguez Jr., MD LAB POCT ORDERABLES - DEVICE Final Result Performing Organization Address City/[facility]/ZIP Co de Phone Number CATHIE CREWS ([place]) 1 [place] [address] * POCT glucose (04/21/2025 4:59 PM CDT) Glucose, POC 98 70 - 199 mg/dL Blood 04/21/2025 4:59 PM CDT 04/21/2025 4:59 PM CDT Reggie Dominguez Jr., MD LAB POCT ORDERABLES - DEVICE Final Result Performing Organization Address [facility] Co de Phone Number CATHIE CREWS ([place]) 1 [place] [address] * POCT glucose (04/21/2025 12:00 PM CDT) Glucose, POC 101 70 - 199 mg/dL Blood 04/21/2025 12:0 0 PM CDT 04/21/2025 12:00 PM CDT Reggie Dominguez Jr., MD LAB POCT ORDERABLES - DEVICE Final Result Performing Organization Address [facility] de Phone Number CATHIE CREWS ([place]) 1 [place] [address] * US Kidney Complete (04/21/2025 10:11 AM [...] Rosario Zuniga M.D. FT: FT Report ID: [id number] Reading Location: [id number] Procedure Note Maria Del Rosario Nixon MD [...] Rosario Zuniga M.D. FT: FT Report ID: [id number] Reading Location: [id number] Janak Coy MD IMG US PROCEDURES Final Result * POCT glucose (04/21/2025 7:56 AM CDT) Glucose, POC 113 70 - 199 mg/dL Blood 04/21/2025 7:56 AM CDT 04/21/2025 7:56 AM CDT us Reggie Dominguez Jr., MD LAB POCT ORDERABLES - DEVICE Final Result CATHIE CREWS ([place]) 1 [facility] [place] [address] * eGFR (04/21/2025 5:42 AM CDT) eGFR [...] BLOOD ORDERABLES Fi nal Result CATHIE CREWS ([place]) 1 [facility] [place] [address] * (ABNORMAL) Differential, auto (04/21/2025 5:42 AM [...] Fi nal Result [facility] (EFRA) 1 [facility] [place] [address] * CBC with auto differential (04/21/2025 5:42 AM CDT) WBC 8.36 3.80 - 9.90 K/cumm Hgb 15.1 13.0 - 17.5 g/dL [facility] (EFRA) Hct 43.3 38.9 - 50.3 % [facility] (EFRA) Plt 184 150 - 400 K/cumm [facility] (EFRA) MPV 9.5 9.1 - 12.3 fL [facility] (ERFA) RBC 4.61 4.30 - 5.80 M/cumm CERNER [...] Fi nal Result [facility] (EFRA) 1 [facility] [place] [address] * Magnesium (04/21/2025 5:42 AM CDT) Magnesium 2.0 1.4 - 2.5 mg/dL Blood 04/21/2025 5:42 AM CDT 04/21/2025 6:07 AM CDT us Janak Coy MD LAB BLOOD ORDERABLES Fi nal Result [facility] (EFRA) 1 [facility] [place] [address] * (ABNORMAL) Comprehensive metabolic panel (04/21/2025 5:42 AM CDT) Sodium 144 135 - 145 mmol/L Potassium, pl 3.8 3.3 - 4.9 mmol/L [facility] (EFRA) Chloride 108 97 - 110 mmol/L [facility] (EFRA) CO2 21(L) 22 - 32 mmol/L [facility] (EFRA) Anion gap 15 2 - 15 mmol/L [facility] ([place]RA) BUN 26(H) 6 - 25 mg/dL [facility] (EFRA) Creatinine 1.12 0.80 - 1.30 mg/dL [facility] (EFRA) Glucose 131 70 - 199 mg/dL [facility] (EFRA) [...] 8.8 8.5 - 10.3 mg/dL [facility] (EFAR) Bilirubin, total 0.5 0.1 - 1.2 mg/dL [...] BLOOD ORDERABLES Fi nal Result CATHIE CREWS ([place]) 1 [facility] [place] [address] * Sepsis Lactate w/ Reflex (04/21/2025 1:48 AM CDT) Sepsis Lactate 1.3 0.7 - 2.0 mmol/L Blood 04/21/2025 1:48 AM CDT 04/21/2025 1:52 AM CDT us Henry Mason MD LAB BLOOD ORDERABLES Final Re sult Performing Organization Address [facility]/ZIP Co de Phone Number CATHIE CREWS ([place]) 1 [facility] [place] [address] * Blood culture Blood (04/21/2025 1:48 AM CDT) Report Final Report: No growth Comment:Testing performed by : [facility], [address] [facility] [place]., [address] Blood 04/21/2025 1:48 AM CDT 04/21/2025 4:09 AM CDT Narrative CATHIE CREWS (EFRA) - 04/25/2025 7:01 AM CDT From [...] performance characteristics have been verified by the [facility]. For questions about this culture, contact the Microbiology Laboratory at [phone]. Interpretive data was last revised on 24. Henry Mason MD LAB MICROBIOLOGY - GENERAL OR DERABLES Final Result CATHIE CREWS (EFRA) 1 [facility] [place] [address] * Blood culture Blood (04/21/2025 1:48 AM CDT) Report Final Report: No growth Comment:Testing performed by : [facility], 1 [facility], [place]., [address] Blood 04/21/2025 1:48 AM CDT 04/21/2025 4:09 [...] performance characteristics have been verified by the [facility]. For questions about this culture, contact the Microbiology Laboratory at [phone]. Interpretive data was last revised on 24. us Henry Mason MD LAB MICROBIOLOGY - GENERAL OR DERABLES Final Result [facility] ([place]) 1 [facility] [place] [address] * (ABNORMAL) Urinalysis reflex to microscopic and [...] tendency for uric acid stone formation. Source: [facility] [place] Current Interpretive Data was last revised on [...] MH (EF[place]) Leukocyte esterase, ur 1+(A) Negative [facility] ([place]) UA reflex comment Reflex to microscopic UA will be performed. [facility] ([place]) Urine 04/21/2025 04/21/2025 12: 03 AM CDT Raymon Vazquez MD LAB MICROBIOLOGY - GENERAL O RDERABLES Final Result Performing Organization Address [facility] Co de Phone Number CATHIE [facility] ([place]) 1 [facility] [place] [address] * (ABNORMAL) Urinalysis, microscopic only (04/21/2025 12:00 AM CDT) WBC, ur 11-20(A) 0 - 5 /HPF RBC, ur 21-50(A) 0 - 2 /HPF [facility]IE [facility] ([place]) Mucous, ur Present(A) CERNER A ([place]) Culture Reflex Comment Reflex to urine culture will be performed. [facility] ([place]) Urine 04/21/2025 04/21/2025 12: 03 AM CDT Raymon Vazquez MD LAB URINE ORDERABLES Final R esult Performing Organization Address [facility] de Phone Number CATHIE CREWS ([place]) [address] [place] [address] [place] [address] * Urine culture Urine (04/21/2025 12:00 AM CDT) Report Final Report: Less than 100,000 colonies/mL (clinically insignificant growth based on current clinical standards) Comment:Testing performed by : [facility], [address] [facility] [place]., [address] Organism (CLINICALLY INSIGNIFICANT GROWTH [facility] ([place]) Urine 04/21/2025 04/21/2025 4:0 8 AM CDT Narrative [facility] ([place]) - 04/22/2025 6:22 AM CDT Urine culture reflexed based upon urinalysis results. Testing performed by [facility] ([phone]) Raymon Vazquez MD LAB MICROBIOLOGY - GENERAL O RDERABLES Final Result Performing Organization Address [facility] Co de Phone Number CATHIE CREWS ([place]) [address] [place] [address] * (ABNORMAL) eGFR (04/20/2025 11:41 PM CDT) [...] MD LAB BLOOD ORDERABLES Final R esult [facility] ([place]) 1 [facility] [place] [address] * (ABNORMAL) Differential, auto (04/20/2025 11:41 PM [...] LAB BLOOD ORDERABLES Final R esult CATHIE MARS ([place]) 1 [facility] [place] [address] * (ABNORMAL) CBC with auto differential (04/20/2025 [...] - 0.01 K/cumm [facility] ([place]) Blood Venous blood specimen / Unknown 04/20/2025 11:41 PM CDT 04/20/2025 11:45 PM CDT Raymon Vazquez MD LAB BLOOD ORDERABLES Final R esult [facility] ([place]) [address] [facility] [place] [address] * Lipase (04/20/2025 11:41 PM CDT) Lipase 22 10 - 99 Units/L Blood Venous blood specimen / Unknown 04/20/2025 11:41 PM CDT 04/20/2025 11:45 PM CDT Raymon Vazquez MD LAB BLOOD ORDERABLES Final R esult [facility] ([place]) [address] [facility] [place] [address] * (ABNORMAL) Comprehensive metabolic panel (04/20/2025 11:41 [...] ORDERABLES Final R esult Performing Organization Address [facility]/ZIP Co de Phone Number CATHIE CREWS ([place]) [address] [facility] [place] [address] * Diabetic Eye Exam (09/07/2024 7:38 AM CDT) Historical Provider HEALTH MAINTENANCE Final Result * Albumin Creatinine Ratio, Urine (08/17/2024 10:01 AM CDT) Albumin Ur <12.0 mg/L Comment: Interpretive Data No reference range established. Current interpretive data was last revised 2019. Testing performed by: [facility], [address] [place] [address]., [id number] Creatinine Ur 146.6 mg/dL [facility]IE [facility] ([place]) Comment: Interpretive Data No reference range established. Current interpretive data was last revised 2019. Testing performed by: [facility], [address] [place] [address]., [id number] Albumin Creatinine Ratio, Ur <8 1 - 29 mg/g [facility]IE [facility] ([place]) Comment:Testing performed by : [facility], [address] [place] [address]., [id number] Urine 08/17/2024 10:0 1 AM CDT 08/17/2024 12:33 PM CDT Elsy Miranda NP LAB URINE ORDERABLES Final Result Performing Organization Address [facility] Co de Phone Number [facility]ATHIE [facility] ([place]) 1 [facility] [place] [address] from Last 3 Months or Most Recently Relevant to Health Maintenance Insurance [employer] [facility] PPO MEDICARE AETNA MEDICARE GOLD AETNA MEDICARE GOLD Advance Directives For more information, please contact: [phone] * Full Code (Latest Code Status on [...] following attending physician : Ander [facility] [employer] 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
== END 2025-06-09 07:13 | disposition home or self-care (01) ==
PROVIDERS: PCP Family Medicine; Visit Provider Urology
DX: C61 Malignant neoplasm of prostate (principal); K80.20 Calculus of gallbladder without cholecystitis without obstruction; N20.0 Calculus of kidney
CPT/HCPCS: 78815; A9596